=== PATIENT | male | born 1940 | race Caucasian/White ===

== ENCOUNTER 2020-02-17 08:21 | Observation (INO) ==
--- NOTE | 2020-02-05 14:16 | PAT Medication Instructions ---
Medication Instructions Date of Service February 05, 2020 Home Medications amlodipine 10 mg PO QAM aspirin [Aspir-81] 81 mg PO DAILY PRN cholecalciferol (vitamin D3) [Vitamin D3] 2,000 unit PO QAM lisinopril 40 mg PO QAM multivitamin [Multiple Vitamins] 1 tab PO QAM rosuvastatin 10 mg PO QAM tamsulosin 0.4 mg PO DAILY PRN ASK your surgeon for instructions aspirin [Aspir-81] 81 mg PO DAILY PRN DO NOT take the morning of surgery cholecalciferol (vitamin D3) [Vitamin D3] 2,000 unit PO QAM lisinopril 40 mg PO QAM multivitamin [Multiple Vitamins] 1 tab PO QAM Take morning of surgery With a small sip of water, OTHERWISE NOTHING TO EAT OR DRINK AFTER MIDNIGHT: amlodipine 10 mg PO QAM rosuvastatin 10 mg PO QAM tamsulosin 0.4 mg PO DAILY PRN (if needed) Other Notes If you have any questions please call us at [phone] or [phone] or [phone] or [phone]
--- NOTE | 2020-02-08 10:50 | Anesthesiology Consultation ---
Date of Service February 08, 2020 Assessment & Plan (1) Encounter for pre-operative examination: Per PAT assessment on 02/07: Travel screen- Traveled to [facility] for a 02/01/20 (DOS greater than 2 weeks after return from travel). + mask, + social distancing. No known COVID-19 positive contacts. No current COVID-19 related symptoms. Surgeon arranging preop COVID testing. Awaiting results. Chart Review Chart Review: Acceptable Risk for Surgery (pending COVID testing) and Patient seen in Pre Admission Testing Teaching & Discussion Pre-Anesthesia Teaching/Discussion Notes: Instructed NPO after midnight before surgery,except medications with 15 cc of water. Medication instructions provided according to the PAT guidelines. History Surgery Operation Date: 02/17/20 10:50 Proposed Procedures p Right Total Knee Arthroplasty - Ben Trevino MD Height/Weight Height: 5 ft 11 in Weight: 85.6 kg Allergies Allergy/AdvReac Type Severity Reaction Status Date / Time acetaminophen [From Percocet] AdvReac Severe Hypotension Verified 02/01/20 08:39 oxycodone [From Percocet] AdvReac Severe Hypotension Verified 02/01/20 08:39 Medications Home Medications Medication Instructions Recorded Confirmed Last Taken amlodipine 10 mg PO QAM 03/18/18 02/01/20 Unknown aspirin [Aspir-81] 81 mg PO DAILY PRN 03/18/18 02/01/20 Unknown cholecalciferol (vitamin D3) 2,000 unit PO QAM 03/18/18 02/01/20 Unknown [Vitamin D3] lisinopril 40 mg PO QAM 03/18/18 02/01/20 Unknown multivitamin [Multiple Vitamins] 1 tab PO QAM 03/18/18 02/01/20 Unknown rosuvastatin 10 mg PO QAM 03/18/18 02/01/20 Unknown tamsulosin 0.4 mg PO DAILY PRN 02/01/20 02/01/20 Unknown Past Medical History Medical History BPH (benign prostatic hyperplasia) HTN (hypertension) Hyperlipidemia Kidney stones passed without intervetion Osteoarthritis Exercise / Class Metabolic Activity II 4-5 Yardwork/Stairs/Walk up hill Past Family History Family History Other Hypertension Past Surgical History Surgical History History of arthroscopy left x2 History of colonoscopy History of total hip arthroplasty left/right History of total knee replacement left History of total shoulder replacement right Hx of bilateral cataract extraction Hx of elbow surgery calcium deposit right Past Anesthesia History No Family Hx of Anesthesia Complications and Other (unable to void with left/right DAMARIS, required cath post-operatively) History of PONV No Hx of PONV and No Hx of Motion Sickness Social History Smoking Status: Never smoker Do You Dip or Chew Tobacco: No Hx Alcohol Use: Yes Alcohol type: wine and hard liquor alcohol intake frequency: 0-2 drinks per day (0-2 drinks/day (currently patient plans no ETOH use from now until after surgery)) Hx Substance Use: No substance use type: does not use Review of Systems Patient denies chest pain, shortness of breath, dyspnea on exertion, fever, chills, cough, wheezing, palpitations. Physical Exam Vital Signs VITALS BP 119/69 P 55 TEMP 98.6 SP02 96%RA RESP 18 PHYSICAL Full neck and c-spine range of motion. Full TMJ range of motion. TMD 3 finger breaths Mallampati Score 3 Dentition: intact, caps on molars Lungs: clear throughout to auscultation Cardiac: regular rate and rhythm, no murmurs noted Spine: normal Carotid arteries: negative bruit Extremities: no edema Testing Laboratory Results 02/08/20 11:17 02/08/20 11:17 PT 10.4 Seconds (9.0-12.0) 02/08/20 11:17 INR 1.0 (0.9-1.1) 02/08/20 11:17 APTT 30.1 Seconds (21.0-31.0) 02/08/20 11:17 Urine Color Dark Yellow 02/08/20 11:17 Urine Appearance Clear (Clear) 02/08/20 11:17 Urine pH 6.0 (4.5-7.5) 02/08/20 11:17 Ur Specific [place] 1.022 (1.000-1.030) 02/08/20 11:17 Urine Protein Negative (Negative) 02/08/20 11:17 Urine Glucose (UA) Negative (Negative) 02/08/20 11:17 Urine Ketones Negative (Negative) 02/08/20 11:17 Urine Nitrite Negative (Negative) 02/08/20 11:17 Ur Leukocyte Esterase 2+ (Negative) H 02/08/20 11:17 Urine WBC (Auto) 10-30 /hpf (0-5) H 02/08/20 11:17 Urine RBC (Auto) 0-4 /hpf (0-4) 02/08/20 11:17 U Hyaline Cast (Auto) 1-5 /lpf (0-5) 02/08/20 11:17 U Epithel Cells (Auto) 10-20 /lpf (0-5) H 02/08/20 11:17 Urine Bacteria (Auto) Negative (Negative) 02/08/20 11:17 Blood Type B Positive 02/08/20 11:17 Antibody Screen NEGATIVE 02/08/20 11:17 Electrocardiogram Date: 02/08/20 SB at 55bpm. Chest X-Ray Date: 02/08/20 FINDINGS: PA and lateral chest radiographs are compared to study dated 2017. The heart is mildly enlarged noting atherosclerotic calcification of the thoracic aorta. The pulmonary vasculature is noncongested. Chronic interstitial thickening is similar to previous. No airspace consolidation or pleural effusion is identified. There is no pneumothorax. The skeletal structures are osteopenic. A right shoulder arthroplasty is in place. There is chronic posttraumatic defor mity with partial plate fixation of the right clavicle. IMPRESSION: Mild cardiac enlargement with no active disease in the chest.
--- NOTE | 2020-02-08 11:41 | XRay Report ---
TWO VIEW CHEST CLINICAL HISTORY: Preoperative examination. FINDINGS: PA and lateral chest radiographs are compared to study dated 03/18/2018. The heart is mildly enlarged noting atherosclerotic calcification of the thoracic aorta. The pulmonary vasculature is no ncongested. Chronic interstitial thickening is similar to previous. No airspace consolidation or pleu ral effusion is identified. There is no pneumothorax. The skeletal structures are osteopenic. A right shoulder arthroplasty is in place. There is chronic posttraumatic deformity with partial plate fixat ion of the right clavicle. IMPRESSION: Mild cardiac enlargement with no active disease in the chest. ACT 112: Negative or not required by law. Electronically signed by: Khurram Hussein M.D. 02/08/2020 11:40 AM
[2020-02-08 13:28] LABS: Basophils # (auto) 0.01 K/uL (0-0.2); Basophils % (auto) 0.1 %; Eosinophils # (auto) 0.28 K/uL (0-0.5); Eosinophils % (auto) 3.7 %; Hematocrit (blood only) 48.7 % (42-52); Hemoglobin 16.5 g/dL (14.0-18.0); Immature Granulocytes # (auto) 0.01 K/uL (0.00-0.02); Immature Granulocytes % (auto) 0.1 %; Lymphocytes # (auto) 1.62 K/uL (1.2-3.4); Lymphocytes % (auto) 21.7 %; Mean Corpuscular Hemoglobin 33.2 pg (25-34); Mean Corpuscular Hgb Conc 33.9 g/dL (32-36); Monocytes # (auto) 0.63 K/uL (0.11-0.59); Monocytes % (auto) 8.4 %; Neutrophils # (auto) 4.92 K/uL (1.4-6.5); Platelet Count 181 K/uL (130-400); RDW Coefficient of Variation 13.5 % (11.5-14.5); RDW Standard Deviation 48.2 fL (36.4-46.3); Red Blood Count 4.97 M/uL (4.7-6.1); White Blood Count 7.47 K/uL (4.8-10.8)
[2020-02-08 13:38] LABS: Appearance Urine Clear (Clear); Bacteria Urine Automated Negative (Negative); Bilirubin Urine Negative (Negative); Blood Urine Negative (Negative); Color Urine Dark Yellow; Glucose Urine UA Negative (Negative); Ketones Urine Negative (Negative); Leukocyte Esterase Urine 2+ (Negative); Nitrite Urine Negative (Negative); Protein Urine Negative (Negative); RBC Urine Automated 0-4 /hpf (0-4); Specific Gravity Urine 1.022 (1.000-1.030); Urobilinogen Urine Negative (Negative)
[2020-02-08 13:42] LABS: Partial Thromboplastin Ratio 1.1; Partial Thromboplastin Time 30.1 Seconds (21.0-31.0); Prothrombin Time 10.4 Seconds (9.0-12.0)
[2020-02-08 13:52] LABS: BUN Creatinine Ratio 19.8 (10-20); Calcium 9.3 mg/dl (8.5-10.1); Creatinine Clr Calc Pharmacy 52.3 ml/min; Potassium 4.3 mmol/L (3.5-5.1)
[2020-02-08 13:55] LABS: Calcium Oxalate Crystals Urine Present (None Prsent); Mucus Urine Present (None Prsent)
--- NOTE | 2020-02-08 17:54 | Electrocardiogram Report ---
Test Reason : Blood Pressure : / mmHG Vent. Rate : 055 BPM Atrial Rate : 055 BPM P-R Int : 200 ms QRS Dur : 096 ms QT Int : 430 ms P-R-T Axes : 076 061 052 degrees QTc Int : 411 ms Sinus bradycardia Otherwise normal ECG When compared with ECG of 18-MAR-2018 13:50, Premature atrial complexes are no longer Present Questionable change in QRS axis Confirmed by Wilbur Ma ([id number]) on 02/08/2020 5:53:56 PM Referred By: Ben Trevino Confirmed By:Chiki Ma
--- NOTE | 2020-02-15 07:55 | History & Physical Report ---
Date of Service February 15, 2020 Assessment & Plan (1) Right knee DJD: Postoperative prescriptions for hydrocodone and Coumadin will be provided at discharge from the hospital. The patient states he does not do well at all with Percocet and causes significant hypotension. Anticipate discharge to home with home health services. Preoperative lab work, EKG, and chest x-ray have been ordered for today. He has already seen his PCP for medical clearance. PDMP was checked today and is unremarkable. The patient is aware of the COVID- 19 risks associated with surgery. He is currently asymptomatic of any COVID-19 symptoms. He will obtain nasal swab testing prior to surgery. History of Present Illness Chief Complaint: Right knee pain Primary Care Provider: Haleigh Evans MD This 79-year-old white male presents today for evaluation of a longstanding history of right knee pain. He is scheduled to undergo a right knee total knee arthroplasty on 02/17/2020. It has been ongoing for several years. Pain has become worse with time. It is now affecting his ADLs. Worse with weightbearing or ambulation. He denies any numbness or tingling. Previously had a left total knee arthroplasty done 20 years ago and states it is doing well. He elects to proceed with the same on the right. Preoperative imaging has been obtained. Allergies Allergy/AdvReac Type Severity Reaction Status Date / Time acetaminophen [From Percocet] AdvReac Severe Hypotension Verified 02/01/20 08:39 oxycodone [From Percocet] AdvReac Severe Hypotension Verified 02/01/20 08:39 Home Medications Home Medications Medication Instructions Recorded Confirmed Type amlodipine 10 mg PO QAM 03/18/18 02/01/20 History aspirin [Aspir-81] 81 mg PO DAILY PRN 03/18/18 02/01/20 History cholecalciferol (vitamin D3) 2,000 unit PO QAM 03/18/18 02/01/20 History [Vitamin D3] lisinopril 40 mg PO QAM 03/18/18 02/01/20 History multivitamin [Multiple Vitamins] 1 tab PO QAM 03/18/18 02/01/20 History rosuvastatin 10 mg PO QAM 03/18/18 02/01/20 History tamsulosin 0.4 mg PO DAILY PRN 02/01/20 02/01/20 History Past Med/Surg History Medical History BPH (benign prostatic hyperplasia) HTN (hypertension) Hyperlipidemia Kidney stones passed without intervetion Osteoarthritis Surgical History History of arthroscopy left x2 History of colonoscopy History of total hip arthroplasty left/right History of total knee replacement left History of total shoulder replacement right Hx of bilateral cataract extraction Hx of elbow surgery calcium deposit right Family History (Updated 02/15/20 @ 07:54 by Kirill Jones PA-C) Other Cancer Heart disease Hypertension Social History Smoking Status: Never smoker Second Hand Exposure: No; Hx Alcohol Use: Yes Alcohol type: wine and hard liquor Hx Substance Use: No Preferred Language: Croatian Communication Ability: Effective Hearing Ability: Normal Java Systems Analyst Required: No Beliefs That Will Affect Care: None marital status: Current Living Situation: Spouse current occupational status: retired Feels Safe at Home: Yes Review of Systems Review of Systems: All systems reviewed & are unremarkable except as noted in HPI & below A total of 10 systems were reviewed. Physical Exam Physical Exam: Vitals: Height 176 cm, weight 87.2 kilograms, BMI 28.1. Temperature 36.5 oral, BP 130/72, pulse 69, O2 sat 96% on room air. General: Well-developed, well-nourished, elderly white male in no acute distress. Sitting in a chair. Alert and oriented. Skin: Warm and dry with good turgor. No rashes or lesions. No ecchymosis or erythema. No intraarticular effusion. Left knee has a well-healed surgical scar. HEENT: Normocephalic, atraumatic. Eyes: PERRLA, EOMI. Nares patent bilaterally without turbinate enlargement. Oropharynx exam deferred due to COVID precautions. Heart: Regular with frequent PVCs. The patient denies feeling the extra PVCs. No murmurs, gallops or rubs. Lungs: Clear to auscultation bilaterally; no crackles, rhonchi or wheezing; good air movement. Abdomen: Bowel sounds present x4, soft, nontender. No organomegaly. No masses. Musculoskeletal: Right knee lacks 3-4 degrees of terminal extension. Flexion to 100 degrees. Strength is 5/5 with good quad tone. Obvious varus stance. Obvious arthritic changes are present at the knee. Palpable spurs. There is medial joint line discomfort with palpation. No lateral joint line discomfort with palpation. Stable collateral ligaments. No defect in the patellar tendon or quadriceps tendon. Neurologic: Gross sensation is intact across both lower extremities by soft touch. Peripheral pulses are 2+. Results & Data Results & Data ([facility] [place]) Diagnostic Findings Radiographic imaging obtained today was reviewed by me and read by radiology. He has significant arthritic changes throughout the knee. There is severe joint space narrowing medially. Periarticular osteophytes and subchondral sclerosis are also evident.
[~2020-02-17 08:21] MED LIST: BUPIVACAINE 0.5 % 5 MG/1 ML PF 10ML VIAL ONE; CEFAZOLIN 2000MG 2,000 MG/15 ML SYR IV SCH; LR 500ML BOLUS, THEN 15ML/HR IV SCH; LR 60ML/HR IV SCH; ROPIVACAINE 0.5% 5 MG/ML 30 ML VIAL ONE; ROPIVACAINE 0.5% HCL/PF 150 MG, BUPIVACAINE 0.5% MPF 30 ML, EPINEPHrine 0.15 MG, Ketoro... INFIL SCH; TRANEXAMIC ACID 1,000 MG **IV Pre-op IV SCH
--- NOTE | 2020-02-17 08:41 | History & Physical Bridge Note ---
Date of Service February 17, 2020 History & Physical Bridge Note I have examined the patient, reviewed the History & Physical and in the interval since the performance of the History & Physical I have noted the following changes of clinical significance:consent obtained/site marked and verified/covid screen negative. no changes noted
[2020-02-17] MEDS ORDERED: PROPOFOL IV EMULSION 10 MG/ML 20 ML VIAL IV ONE (10:10)
[2020-02-17] MEDS ORDERED: MIDAZOLAM HCL 1 MG/ML 2ML VIAL ONE ×2 (10:10→10:14)
[2020-02-17] MEDS ORDERED: ORTHO JOINT ANESTHETIC ONE (10:35)
[2020-02-17] MEDS ORDERED: ONDANSETRON INJ 2 MG/ML 2 ML VIAL IV PRN ×2 (11:09→14:04)
[2020-02-17] MEDS ORDERED: ATROPINE SULFATE 0.1 MG/ML 10ML SYR IV PRN (11:09)
[2020-02-17] MEDS ORDERED: HYDROmorphone INJ 1 MG/ML SYRINGE IV PRN (11:09)
[2020-02-17] MEDS ORDERED: ePHEDrine sulfate 50 MG/ML AMP IV PRN (11:09)
[2020-02-17] MEDS ORDERED: KETOROLAC TROMETHAMINE 15 MG/ML VIAL IV PRN (11:28)
--- NOTE | 2020-02-17 12:20 | Post Operative Brief Note ---
Immediate Post Op Note v1 Date of Surgery February 17, 2020 Pre & Post Diagnosis Operation Date: 02/17/20 10:40 Pre-Op Diagnosis: Right Knee Degenerative Joint Disease Post-Op Diagnosis: Right Knee Degenerative Joint Disease I identified the patient and participated in the time-out.: Yes Procedure Operation Date: 02/17/20 10:40 Actual Procedures p Right Total Knee Arthroplasty(Right) - Ben Trevino MD Surgeon Ben Trevino MD Certified Diabetes Educator nery/german Estimated Blood Loss 75 Findings Consistent with Post-Op Diagnosis
--- NOTE | 2020-02-17 12:28 | Operative Report ---
Post Operative Report Pre & Post Diagnosis Operation Date: 02/17/20 10:40 Pre-Op Diagnosis: Right Knee Degenerative Joint Disease Post-Op Diagnosis: Right Knee Degenerative Joint Disease I identified the patient and participated in the time-out.: Yes Procedure Operation Date: 02/17/20 10:40 Actual Procedures p Right Total Knee Arthroplasty(Right) - Ben Trevino MD Surgeon CAMERON Trevino MD Car Hop nery/german Estimated Blood Loss 75 Findings Consistent with Post-Op Diagnosis Specimens see operative report Drains none Complications none Disposition Accompanied Patient To Recovery: Yes Disposition: Recovery Room Indications This 79-year-old white male presented to the office with complaints of intractable right knee pain. He had tried conservative care measures without improvement. He elected to proceed with surgical intervention after being educated about potential risks and outcomes. Preoperative imaging was obtained. He previously had a left total knee arthroplasty and elected to proceed with the same on the right. Description of Procedure Patient was administered a spinal anesthetic and then taken to the operating room where he was given sedation. He was prepped and draped in the usual sterile fashion. Please see Dr. Trevino's operative report for specifics of the procedure. I was present for the entire case from initial patient positioning through final wound closure. Assistance was provided in tissue retraction, hemostasis, trial implant placement, final implant placement, and final wound closure. Patient was taken to the recovery room in satisfactory condition. I attest to the content of the Intraoperative Record and any orders documented therein. Any exceptions are noted below.
--- NOTE | 2020-02-17 12:35 | Operative Report (OR) ---
DATE OF OPERATION: 02/17/2020 SURGEON: Ben Trevino MD. MEDICATION TECH: Kirill Jones PA-C. SECOND MEDICATION TECH: Juan Miguel Desai. No resident or fellow available. PA was required for the entire case for appropriate operative assistance for retraction and instrumentation. PERIOPERATIVE SITUATION: Medically cleared male with intractable knee pain, has significant varus flexion deformity. X-rays reveal end-stage medial compartment disease. At this point in time, wants to proceed with surgical treatment. He has multiple joints replaced. He understands the risks and consequences. Consent obtained. No guarantees given. OPERATIVE PROCEDURE: Cemented right total knee replacement. DESCRIPTION OF PROCEDURE: The patient was appropriately identified, site verified, consent verified. Antibiotics confirmed as being given. The right lower extremity was prepped and draped in usual routine fashion. Tourniquet was applied and elevated to 300 mmHg for a total of 50 minutes. Midline exposure was utilized. Tourniquet pressure was 300 mmHg. Parapatellar arthrotomy performed. Synovectomy completed, osteophytes resected. Loose body removed. Distal femur entered, cruciates resected. Distal femur resected 14 mm, proximal tibia resected 4 mm, extension gap was excellent. Menisci resected. Posterior capsule was then injected. The femur was sized to a 4, appropriate cutting block applied. Anterior, posterior condylar and chamfer cuts made. Flexion gap was excellent. Box cut was then made and a size 4 narrow fit well. Tibia was then broached and reamed to a size 4 and then reduced with a 10 mm spacer with excellent stability in full flexion, full extension and mid range flexion. Patella tracked well. The patella was resected leaving 16 mm and a size 41 template placed and the trial seated, it tracked well. The knee was then injected with Orthomix all about the entire operative field. The trial implants were removed. The wound was irrigated with Pulsavac, Betadine and Pulsavac and then cemented in position, tibia, femur and patella in that order. After 12 minutes, the tourniquet deflated. Minor bleeding points controlled with electrocautery. After 14 minutes, knee flexed, no cement removal required. The spacer was removed. Everything was irrigated with Betadine and Pulsavac and then Betadine one more time and then the implant permanent spacer seated, knee reduced and closed in 30 degrees of flexion with #2 Vicryl, 2-0 Vicryl and stainless steel clips. Appropriate dressing applied. The patient was transferred to recovery room in satisfactory condition having tolerated the procedure well. ESTIMATED BLOOD LOSS: 75 mL. PATHOLOGY: Pending on bone. CRYSTALLOID: Per anesthesia. SUMMARY OF IMPLANTS: Size 4 narrow right femur, size 4 mobile bearing tray tibia, size 41 patella, 4 x 10 posterior cruciate substituting insert, 2 bags of Palacos G cement. DVT prophylaxis per protocol with Coumadin. I attest to the content of the Intraoperative Record and any orders documented therein. Any exceptions are noted below. MTDD
--- NOTE | 2020-02-17 12:43 | XRay Report ---
XR knee RT 1 or 2V routine CLINICAL HISTORY: post op r tka COMPARISON: 02/08/2020 DISCUSSION: Anatomic alignment post total right knee arthroplasty. Good contact between prosthetic an d underlying bone. Evidence for expected soft tissue postoperative change. IMPRESSION: Anatomic alignment post total right knee arthroplasty. ACT 112: Negative or not required by law. The above report was generated using voice recognition software. It may contain grammatical, syntax or spelling errors. Electronically signed by: Vinay Flowers M.D. 02/17/2020 12:42 PM
--- NOTE | 2020-02-17 13:08 | Progress Notes ---
DATE: 02/17/2020 SUBJECTIVE: Postop check status post right total knee replacement. The patient is doing well, has no major issues. Denies any chest pain, shortness of breath, fever, chills, nausea, vomiting or headache. OBJECTIVE: Vital signs are stable. He is afebrile. Postop x-rays look excellent. ASSESSMENT: Status post right total knee replacement. He is doing well, will follow up with me in a.m. Discharge tomorrow. Physical therapy and occupational therapy.
--- NOTE | 2020-02-17 13:28 | Anesthesiology Progress Note ---
Date of Service February 17, 2020 Anesthesia Post Procedure Vital Signs Vital Signs: Temp Pulse Pulse Resp BP BP Pulse Ox 02/17/20 13:15 36.3 C L 48 L 14 119/69 93 02/17/20 13:05 44 L 16 118/68 100 02/17/20 12:55 46 L 13 113/65 98 02/17/20 12:45 46 L 17 114/62 99 02/17/20 12:35 36 C L 47 L 18 100/60 99 02/17/20 12:27 36 C L 53 L 16 83/57 L 95 02/17/20 08:51 37.2 C 60 18 145/85 H Transfer of Care Handoff Completed per policy Notes Mental Status: alert / awake / arousable Patient Amnestic to Procedure: Yes Nausea / Vomiting: adequately controlled Pain: adequately controlled Airway Patency, RR, SpO2: stable & adequate BP & HR: stable & adequate Hydration State: stable & adequate Neuraxial Anesthesia: was administered and sensory block is resolving Anesthetic Complications: no major complications apparent
--- NOTE | 2020-02-17 13:33 | Discharge Summary (DS) ---
DATE OF DISCHARGE: 02/18/2020. CHIEF COMPLAINT: Right knee pain. HISTORY OF PRESENT ILLNESS: Underwent elective right total knee replacement. Hospital course has been uneventful. He has had multiple joints replaced including hips, shoulders and left knee. He is here for right total knee replacement. Hospital course has been uneventful. PREADMISSION MEDICATIONS: Include amlodipine, aspirin, vitamin D, lisinopril, multivitamin, tamsulosin, rosuvastatin. ALLERGIC: TO ACETAMINOPHEN FROM PERCOCET AND OXYCODONE FROM PERCOCET. PAST MEDICAL HISTORY: Remarkable for BPH, hypertension, hyperlipidemia, kidney stones, osteoarthritis. PAST SURGICAL HISTORY: Remarkable for colonoscopy, arthroscopies, hip replacement, knee replacement, shoulder replacement on the left, cataract surgery, elbow surgery. FAMILY HISTORY: Remarkable for cancer, heart disease, hypertension. SOCIAL HISTORY: Reveals he does not smoke, does not drink, is . Spouse is alive. Lives with his spouse, feels safe at home. REVIEW OF SYSTEMS: Noncontributory. Hospital course has been uneventful. Postop x-rays look excellent. ASSESSMENT: Doing well status post right total knee replacement. Discharge to home tomorrow after PT/OT. Coumadin per nomogram.
[2020-02-17] MEDS ORDERED: DiphenhydrAMINE HCL 50 MG/ML VIAL IV PRN (14:04)
[2020-02-17] MEDS ORDERED: NALOXONE HCL 0.4 MG/1 ML VIAL/CARP IV PRN (14:04)
[2020-02-17] MEDS ORDERED: TAMSULOSIN HCL 0.4 MG CAP PO PRN (14:04)
[2020-02-17] MEDS ORDERED: VANCOMYCIN CONSULT ACTIVE PRN (14:04)
[2020-02-17] MEDS ORDERED: ASPIRIN 81 MG ECTAB PO PRN (14:04)
[2020-02-17] MEDS ORDERED: HYDROCODONE/ACETAMOPHEN 5/325MG TAB PO PRN (14:04)
[2020-02-17] MEDS ORDERED: ALUMINUM/MAGNESIUM SUSP 30 ML UDC PO PRN (14:04)
[2020-02-17] MEDS ORDERED: HYDROmorphone INJ 0.5 MG/0.5 ML SYR IV PRN (14:04)
[2020-02-17] MEDS ORDERED: bisacodyL 10 MG SUPP PR PRN (14:04)
[2020-02-17] MEDS ORDERED: METOCLOPRAMIDE HCL INJ 5 MG/ML 2 ML VIAL IV PRN (14:04)
[2020-02-17] MEDS ORDERED: MAGNESIUM HYDROXIDE SUSP 30 ML UDC PO PRN (14:04)
[2020-02-17] MEDS ORDERED: SODIUM CHLORIDE 0.9% 1000ML 1,000 ML IV SCH (14:04)
[2020-02-17] MEDS: ACETAMINOPHEN 500 MG TAB PO SCH ×3 (14:50→21:39)
[2020-02-17] MEDS: ORTHO WARFARIN NOMOGRAM SCH (15:02)
[2020-02-17] MEDS ORDERED: WARFARIN SOD 5 MG TAB PO SCH (16:00)
[2020-02-17] MEDS: FERROUS GLUCONATE 324 MG TAB PO SCH (16:08)
[2020-02-17] MEDS: KETOROLAC TROMETHAMINE 15 MG/ML VIAL IV SCH ×2 (16:08→21:39)
[2020-02-17] MEDS: ASCORBIC ACID 500 MG TAB PO SCH (16:08)
[2020-02-17] MEDS ORDERED: VANCOMYCIN HCL 1,250 MG in SODIUM CHLORIDE 0.9% 250 ML IV SCH (17:30)
[2020-02-17] MEDS ORDERED: TRANEXAMIC ACID / 0.7% NACL 1,000 MG/100 ML BAG IV SCH (18:34)
[2020-02-17] MEDS ORDERED: SENNA 8.6 MG TAB PO SCH (21:00)
[2020-02-17] MEDS: CEFAZOLIN 2000MG 2,000 MG/15 ML SYR IV SCH (21:33)
[2020-02-17] MEDS: DOCUSATE SODIUM 100 MG CAP PO SCH (21:38)
[2020-02-17] MEDS ORDERED: COUGH DROP (SUGAR FREE) LOZ 24 LOZ/1 BOX BUCCAL ONE (22:04)
[2020-02-18] MEDS: KETOROLAC TROMETHAMINE 15 MG/ML VIAL IV SCH ×2 (03:46→11:26)
[2020-02-18] MEDS: CEFAZOLIN 2000MG 2,000 MG/15 ML SYR IV SCH (03:46)
[2020-02-18] MEDS: ACETAMINOPHEN 500 MG TAB PO SCH (03:46)
[2020-02-18 06:08] LABS: Hematocrit (blood only) 39.6 % (42-52); Mean Corpuscular Hemoglobin 31.3 pg (25-34); Mean Corpuscular Hgb Conc 32.8 g/dL (32-36); Mean Corpuscular Volume 95.4 fL (80-100); Mean Platelet Volume 9.6 fL (7.4-10.4); Platelet Count 156 K/uL (130-400); RDW Coefficient of Variation 13.1 % (11.5-14.5); RDW Standard Deviation 45.7 fL (36.4-46.3); Red Blood Count 4.15 M/uL (4.7-6.1); White Blood Count 12.69 K/uL (4.8-10.8)
[2020-02-18 06:19] LABS: INR 1.1 (0.9-1.1)
[2020-02-18 06:41] LABS: BUN Creatinine Ratio 18.1 (10-20); Calcium 7.8 mg/dl (8.5-10.1); Est GFR (African American) 58.5; Est GFR (Non-African American) 50.5; Potassium 4.2 mmol/L (3.5-5.1)
[2020-02-18 07:14] VITALS: BP 120/71; TEMP 98.2; O2SAT 94
--- NOTE | 2020-02-18 07:28 | Progress Notes ---
DATE: 02/18/2020 SUBJECTIVE: Status post right total knee replacement. At this point in time, he is doing well, has no issues. OBJECTIVE: VITAL SIGNS: Stable. He is afebrile. Neurovascular check, femoral sciatic nerve is normal. Can do a straight leg raise. LABORATORY WORK: Hematocrit stable at 39.6. Electrolytes are good. ASSESSMENT: Doing well. Discharge to home today. Discharged on Coumadin. Also have Celebrex 200 mg daily for 10 days and antacid Protonix or equivalent for GI protection since he has difficulty using narcotics, he will need to use Celebrex and Tylenol.
[2020-02-18 07:44] VITALS: PULSE 60
[2020-02-18] MEDS ORDERED: dexAMETHasone 10 MG in SYRINGE 0 ML IV SCH (08:00)
[2020-02-18] MEDS: DOCUSATE SODIUM 100 MG CAP PO SCH (08:49)
[2020-02-18] MEDS: ASCORBIC ACID 500 MG TAB PO SCH (08:50)
[2020-02-18] MEDS: FERROUS GLUCONATE 324 MG TAB PO SCH (08:50)
[2020-02-18] MEDS ORDERED: AMLODIPINE BESYLATE 5 MG TAB PO SCH (09:00)
[2020-02-18] MEDS ORDERED: MULTIVITAMIN TAB PO SCH (09:00)
[2020-02-18] MEDS ORDERED: lisinopriL 40 MG TAB PO SCH (09:00)
[2020-02-18] MEDS ORDERED: ROSUVASTATIN CALCIUM 10 MG TAB PO SCH (09:00)
--- NOTE | 2020-02-18 09:06 | Orthopedic Progress Note ---
Date of Service February 18, 2020 Assessment & Plan (1) Status post total right knee replacement using cement: Dressing was changed today by me. Continue using a walker when ambulating. Coumadin today per nomogram. PT/OT today. Anticipate discharge to home later today with home health services. Follow-up in the office in 2 weeks on March 04, for staple removal as scheduled. Written discharge instructions were provided. Prescriptions for Celebrex, Protonix, and Coumadin were sent to his pharmacy. Admission and Anticipated Discharge Date Admission Date: February 17, 2020 Subjective Patient is seen in his room this morning. He denies any complaints. He has not used any pain medication. Denies any chest pain, shortness of breath, nausea, vomiting, or abdominal pain. States he did not sleep well due to interruptions. He does feel ready for discharge to home. He is currently eating breakfast. Review of Systems Review of Systems: Unchanged from yesterday Physical Exam Physical Exam: General: Well-developed, well-nourished, elderly white male, in no acute distress. Laying on the bed. Alert and oriented. Conversive. Postsurgical dressings are in place. Skin: Warm and dry with good turgor. No rashes or lesions. Dressings have scant dried blood on them upon removal. Expected postoperative ecchymosis with minimal edema at the knee. No erythema. Surgical incision has verito intact. No active drainage. The patient is not diaphoretic. Musculoskeletal: Patient has intact motor function to his ankle and toes. He is able to perform a straight leg raise. Active flexion to around 50 degrees. Neurologic: Gross sensation is intact across the left leg by soft touch. Peripheral pulses are 2+. Results & Data ([facility]) Vital Signs (Past 12 Hours) Vital Signs Temp Pulse Pulse Pulse Resp BP Pulse Ox 02/18/20 07:44 60 02/18/20 07:13 36.8 C 56 L 16 120/71 94 02/18/20 04:00 36.6 C 70 16 116/64 96 02/17/20 23:35 36.8 C 72 18 122/72 96 Laboratory Results H&H today is 13.0 and 39.6. INR is 1.1. BMP is unremarkable.
[2020-02-18] MEDS ORDERED: WARFARIN SOD 5 MG TAB PO SCH (10:00)
[2020-02-18] MEDS: ORTHO WARFARIN NOMOGRAM SCH (11:28)
[2020-02-19] MEDS ORDERED: CeleBREX 200 MG CAP PO SCH (09:00)
== END 2020-02-18 01:30 | disposition home health service (06) ==
LOC: ASU 08:21 → 3E 08:21

== ENCOUNTER 2024-04-08 10:14 | Inpatient (IN) ==
[2024-04-08] MEDS: OPTIRAY 320 125ml IV ONE (10:18)
--- NOTE | 2024-04-08 10:22 | Emergency Department Note ---
Impression & Plan Stroke-like symptoms ED Provider Note Provider: Earl Son MD DATE OF SERVICE: 04/08/2024 CHIEF COMPLAINT: Possible stroke HISTORY OF PRESENT ILLNESS: Patient is a 83-year-old gentleman presenting here today via ambulance from home. Woke up at 730am and was reportedly normal. Was having breakfast and noted the patient had some left facial droop. Evidently had an episode also where he had some difficulty clearing secretions and was drooling briefly. Seem to have some issues getting his left shoe on cording to EMS. Patient upon arrival denies pain. States he does not think he is having a stroke. Patient denies numbness or tingling at this time or speech issues. No trauma history of fever reported. Denies chest pain or palpitations. later arrives and states that he really could not even keep his arms level earlier at home and seems to improved a bit. Did have a spinal shot about a week ago. PAST MEDICAL HISTORY: As noted above MEDICATIONS: Reviewed home medications does not include anticoagulants/blood thinners SOCIAL HISTORY: PHYSICAL EXAM: GENERAL: alert and oriented in no acute distress on stretcher Head: normocephalic and atraumatic EYES: No injection, discharge or icterus. PERRL, EOMI. NECK: Trachea midline. ENT: Mucous membranes pink and moist. LUNGS: Airway patent. No retractions. Breath sounds clear with good air entry bilaterally. HEART: Regular rate and rhythm. No chest wall tenderness ABDOMEN: Soft and non-tender, without guarding or rebound. SKIN: Acyanotic, warm, dry, without rashes EXTREMITIES: Without swelling, tenderness or deformity NEUROLOGICAL: Some left facial droop. Is able to smile fairly symmetrically however. No aphasia. No slurred speech. Intact bilateral car shifter strength. Little bit of weakness in left foot and maybe some very slight left [id number] ataxia but seems to have intact left upper extremity strength and no pronator drift. EK bpm sinus rhythm with sinus arrhythmia. No PVC. No acute ST segment elevation or depression with QTc of 416. CONTINUOUS CARDIAC MONITORING: was ordered and showed a heart rate of 60s bpm in sinus rhythm frequent sinus arrhythmia without PVC notable. Patient's laboratory studies and imaging reviewed. Differential includes Infection, dehydration, metabolic abnormality, hypo/hyperglycemia, electrolyte disturbance, anemia, hypoxia, cardiac sources, intracerebral event, toxicologic, neurologic, as well as other pathologies. IMPRESSION/MEDICAL DECISION MAKING: Patient presents from home made a stroke alert with EMS based on description of some left facial droop and possible left-sided weakness. Patient upon arrival is awake and alert. No obvious aphasia or significantly slurred speech but due to left facial droop is appreciable. Patient denies significant numbness or paresthesias on exam. Immediately sent for CT scan and CT angiograms. Discussed with the [facility] [place] [place] stroke team as the patient's symptoms started sometime after 7:30 AM. states it was sometime just after that when she arrived. Does report that he was unable to lift his arms symmetrically but does seem to be able to do that now. Presents at approximately the 3-hour trevon and symptoms do not appear severe at this point. Discussed with and evaluated by telestroke. On further evaluation does have some visual field cuts that are more significant. CT head per radiology without evidence of bleed. Telestroke discussion with patient and regarding pros and cons of TNK/thrombolytics. Discussed risk for bleeding. Patient was agreeable after prolonged discussion both with him and family. TNK ordered and administered. Will be monitored in the ICU. Hospitalist team contacted. DIAGNOSIS: Strokelike symptoms DISPOSITION: Hospitalist will evaluate Patient was agreeable with this plan. Critical Care I have personally spent 32 minutes of critical care time in the direct management of this patient. This includes bedside care, interpretation of diagnostic studies, and testing, discussion with consultants, patient, and family members, and other required patient management activities. These 32 minutes is in excess of all separately billable procedures. 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 Encounter for pre-operative examination BPH loc w urin obs/LUTS Medical History (Updated 04/08/24 @ 10:58 by Earl Son M.D.) Osteoarthritis Kidney stones passed without intervetion BPH (benign prostatic hyperplasia) Hyperlipidemia HTN (hypertension) Surgical History History of cholecystectomy H/O inguinal hernia repair bilateral Hx of bilateral cataract extraction Hx of elbow surgery calcium deposit right History of arthroscopy left x2 History of total shoulder replacement right History of total hip arthroplasty left/right History of total knee replacement left History of colonoscopy Family History Other Cancer Heart disease Hypertension Social History Smoking Status: Never smoker Second Hand Exposure: No; Do You Dip or Chew Tobacco: No; Tobacco Cessation Education Requested by Patient: No Hx Alcohol Use: Yes Alcohol type: other Hx Substance Use: No Preferred Language: Salvadorean Communication Ability: Effective Hearing Ability: Normal Cut Out Marker Required: Yes Beliefs That Will Affect Care: None marital status: Current Living Situation: Spouse current occupational status: retired Other Information That Helps Us Care for You: No Feels Safe at Home: Yes Safety Concerns: Feels Safe At This Time Assistive Devices: None Allergies Allergies Allergy/AdvReac Type Severity Reaction Status Date / Time oxycodone [From Percocet] AdvReac Intermediate Hypotension Verified 04/08/24 11:59 Home Meds Home Medications Medication Instructions Recorded Confirmed lisinopril 40 mg tablet 40 mg PO QAM 03/18/18 04/08/24 multivitamin (Multiple Vitamins 1 tab PO QAM 03/18/18 04/08/24 tablet) rosuvastatin 10 mg tablet 10 mg PO QAM 03/18/18 04/08/24 celecoxib 200 mg capsule (Celebrex) 200 mg PO QAM PRN Pain 06/20/22 04/08/24 amlodipine 10 mg tablet 10 mg PO DAILY 04/08/24 04/08/24 sildenafil 100 mg tablet 0 mg PO DAILY PRN sexual activity 04/08/24 04/08/24 timolol maleate 0.5 % eye drops 1 drp OPL QAM 04/08/24 04/08/24 Previous Rx's Medication Instructions Recorded tamsulosin 0.4 mg capsule See Rx Instructions .Route 08/01/23 .COMPLEX #90 caps mirabegron 50 mg tablet,extended 50 mg PO DAILY #90 tabs 10/10/23 release 24 hr (Myrbetriq) Results & Data (ED) Vital Signs Vital Signs - 24 hr 04/08/24 10:12 04/08/24 10:21 04/08/24 10:27 Temperature 36.8 C Temperature Source Oral Pulse Rate 61 Pulse Rate [Apical] Pulse Rate from SpO2 Sensor Respiratory Rate 18 Respiratory Effort / Characteristics Non-Labored Spontaneous Respiratory Depth Normal Respiratory Pattern Regular Blood Pressure 146/73 H 146/73 H Blood Pressure [Left Arm] Blood Pressure Mean 97 90 Blood Pressure Mean [Left Arm] Blood Pressure Position Lying Blood Pressure Position [Left Arm] Pulse Oximetry 92 94 Oxygen Delivery Method Room Air Room Air Sepsis Recent Fever Within 48 Hours No Sepsis New/Unexplained Change in Mental Status N/A Sepsis Action Taken by Nursing No Action Required 04/08/24 10:30 04/08/24 10:31 04/08/24 10:43 Temperature Temperature Source Pulse Rate 58 L Pulse Rate [Apical] Pulse Rate from SpO2 Sensor 65 Respiratory Rate 18 Respiratory Effort / Characteristics Respiratory Depth Respiratory Pattern Blood Pressure 150/88 H 150/76 H Blood Pressure [Left Arm] Blood Pressure Mean 98 111 Blood Pressure Mean [Left Arm] Blood Pressure Position Blood Pressure Position [Left Arm] Pulse Oximetry 95 Oxygen Delivery Method Sepsis Recent Fever Within 48 Hours Sepsis New/Unexplained Change in Mental Status Sepsis Action Taken by Nursing 04/08/24 10:51 04/08/24 10:56 04/08/24 11:00 Temperature Temperature Source Pulse Rate 55 L Pulse Rate [Apical] Pulse Rate from SpO2 Sensor 58 L Respiratory Rate 17 Respiratory Effort / Characteristics Respiratory Depth Respiratory Pattern Blood Pressure 155/79 H 152/78 H Blood Pressure [Left Arm] Blood Pressure Mean 89 97 Blood Pressure Mean [Left Arm] Blood Pressure Position Blood Pressure Position [Left Arm] Pulse Oximetry 92 Oxygen Delivery Method Sepsis Recent Fever Within 48 Hours Sepsis New/Unexplained Change in Mental Status Sepsis Action Taken by Nursing 04/08/24 11:00 04/08/24 11:00 04/08/24 11:03 Temperature Temperature Source Pulse Rate 63 Pulse Rate [Apical] Pulse Rate from SpO2 Sensor 66 Respiratory Rate 21 Respiratory Effort / Characteristics Respiratory Depth Respiratory Pattern Blood Pressure 152/78 H 152/78 H Blood Pressure [Left Arm] Blood Pressure Mean 97 97 Blood Pressure Mean [Left Arm] Blood Pressure Position Blood Pressure Position [Left Arm] Pulse Oximetry 94 Oxygen Delivery Method Sepsis Recent Fever Within 48 Hours Sepsis New/Unexplained Change in Mental Status Sepsis Action Taken by Nursing 04/08/24 11:09 04/08/24 11:10 04/08/24 11:15 Temperature 36.8 C Temperature Source Oral Pulse Rate 63 Pulse Rate [Apical] 64 Pulse Rate from SpO2 Sensor 80 Respiratory Rate 26 H 22 Respiratory Effort / Characteristics Respiratory Depth Respiratory Pattern Blood Pressure 160/99 H Blood Pressure [Left Arm] 160/99 H Blood Pressure Mean 104 Blood Pressure Mean [Left Arm] 119 Blood Pressure Position Blood Pressure Position [Left Arm] Semi-fowlers Pulse Oximetry 94 94 Oxygen Delivery Method Room Air Sepsis Recent Fever Within 48 Hours Sepsis New/Unexplained Change in Mental Status Sepsis Action Taken by Nursing 04/08/24 11:24 04/08/24 11:30 04/08/24 11:30 Temperature Temperature Source Pulse Rate 70 Pulse Rate [Apical] 59 L Pulse Rate from SpO2 Sensor 69 Respiratory Rate 20 21 Respiratory Effort / Characteristics Non-Labored Spontaneous Respiratory Depth Normal Respiratory Pattern Regular Blood Pressure 160/104 H Blood Pressure [Left Arm] 160/104 H Blood Pressure Mean 135 Blood Pressure Mean [Left Arm] 122 Blood Pressure Position Blood Pressure Position [Left Arm] Semi-fowlers Pulse Oximetry 92 94 Oxygen Delivery Method Room Air Sepsis Recent Fever Within 48 Hours Sepsis New/Unexplained Change in Mental Status Sepsis Action Taken by Nursing 04/08/24 11:30 04/08/24 11:30 Temperature Temperature Source Pulse Rate Pulse Rate [Apical] Pulse Rate from SpO2 Sensor Respiratory Rate Respiratory Effort / Characteristics Respiratory Depth Respiratory Pattern Blood Pressure 160/104 H 160/104 H Blood Pressure [Left Arm] Blood Pressure Mean 135 135 Blood Pressure Mean [Left Arm] Blood Pressure Position Blood Pressure Position [Left Arm] Pulse Oximetry Oxygen Delivery Method Sepsis Recent Fever Within 48 Hours Sepsis New/Unexplained Change in Mental Status Sepsis Action Taken by Nursing Laboratory Data 04/08/24 10:28 04/08/24 10:28 Lab Results 04/08/24 04/08/24 Range/Units 10:28 11:24 WBC 4.70 L (4.8-10.8) K/ul RBC 4.46 L (4.70-6.10) M/uL Hgb 15.2 (14.0-18.0) g/dl Hct 43.1 (42.0-52.0) % MCV 96.6 (80.0-100.0) fL MCH 34.1 H (25.0-34.0) pg MCHC 35.3 (32.0-36.0) g/dL RDW Std Deviation 46.3 (36.4-46.3) fL RDW Coeff of Andrés 12.8 (11.5-14.5) % Plt Count 154 (130-400) K/uL MPV 9.3 L (9.4-12.4) fL Immature Gran % (Auto) 0.2 % Neut % (Auto) 63.4 % Lymph % (Auto) 22.8 % [place] % (Auto) 11.5 % Eos % (Auto) 1.5 % Baso % (Auto) 0.6 % Neut # (Auto) 2.98 (1.40-6.50) K/uL Lymph # (Auto) 1.07 L (1.20-3.40) K/uL [place] # (Auto) 0.54 (0.11-0.59) K/uL Eos # (Auto) 0.07 (0.00-0.50) K/uL Baso # (Auto) 0.03 (0.00-0.20) K/uL Immature Gran # (Auto) 0.01 (0.01-0.20) K/uL PT 11.4 (9.0-12.0) Seconds INR 1.1 (0.9-1.1) APTT 27 (21-31) Seconds PTT Ratio 1.0 Sodium 134 L (136-145) mmol/L Potassium 3.8 (3.5-5.1) mmol/L Chloride 102 (98-107) mmol/L Carbon Dioxide 29 (21-32) mmol/L Anion Gap 3 (3-11) BUN 28 H (6-23) mg/dl Creatinine 1.10 (0.6-1.4) mg/dl Est Cr Clr Drug Dosing 58.7 ml/min Est GFR ( Amer) 71.6 ml/min Est GFR (Non-Af Amer) 61.8 ml/min BUN/Creatinine Ratio 25.5 H (10-20) Glucose 155 H (70-99(Fasting)) mg/dl Calcium 8.5 L (8.6-10.3) mg/dl Magnesium 1.9 (1.7-2.4) mg/dl Total Bilirubin 1.5 H (0.2-1.0) mg/dl AST 15 (13-39) U/L ALT 16 (7-52) U/L Alkaline Phosphatase 50 (34-104) U/L Troponin I High Sens 4.1 (0-20) pg/ml Total Protein 5.9 L (6.0-8.3) gm/dl Albumin 3.6 (3.4-5.0) gm/dl Globulin 2.3 L (2.5-4.0) gm/dl Albumin/Globulin Ratio 1.6 (0.9-2) Urine Color Yellow Urine Appearance Clear (Clear) Urine pH 7.5 (4.5-7.5) Ur Specific [place] 1.042 H (1.000-1.030) Urine Protein Negative (Negative) Urine Glucose (UA) Negative (Negative) Urine Ketones Negative (Negative) Urine Blood Negative (Negative) Urine Nitrite Negative (Negative) Urine Bilirubin Negative (Negative) Urine Urobilinogen Negative (Negative) Ur Leukocyte Esterase Trace H (Negative) Urine WBC (Auto) 0-5 (0-5) /hpf Urine RBC (Auto) 0-2 (0-2) /hpf U Hyaline Cast (Auto) 0-2 (0-2) /lpf U Epithel Cells (Auto) 0-2 (0-2) /hpf Urine Bacteria (Auto) None Seen (None Seen) Blood Type B Positive Antibody Screen NEGATIVE Administered Medications Discontinued Medications Tenecteplase 23 mg/ Syringe 4.6 mls @ 55.2 mls/min IV NOW ONE; Protocol Stop: 04/08/24 10:59 Last Admin: 04/08/24 10:56 Dose: 55.2 mls/min Documented By: NADEEN Co-signed By: Ioversol (Optiray 320 125ml) 112 ml IV ONCE ONE Stop: 04/08/24 10:18 Last Admin: 04/08/24 10:18 Dose: 112 ml Documented By: PER Miscellaneous (Stat Iv/Im) 1 each N/A NOW STA Stop: 04/08/24 10:49 Last Admin: 04/08/24 11:51 Dose: Not Given Documented By: CEF Sodium Chloride (Sodium Chloride 0.9% 10ml Flush) 20 ml IV NOW STA Stop: 04/08/24 10:49 Last Admin: 04/08/24 11:03 Dose: 20 ml Documented By: NADEEN Imaging Data Radiologist's Impression: Head CT 04/08/24 10:10 CT SCAN OF THE BRAIN WITHOUT IV CONTRAST CLINICAL HISTORY: Neurological deficit. Stroke like symptoms. COMPARISON STUDY: No priors. TECHNIQUE: Unenhanced axial CT scan of the brain is performed from the vertex to the skull base. A dose lowering technique was utilized adhering to the principles of ALARA. FINDINGS: Brain parenchyma: There is age-related involutional change noting mild subcortical and periventricular microangiopathic disease. There is no hemorrhage, mass effect, or evidence of acute territorial ischemia by CT criteria. Collins-white matter differentiation is preserved. No extra-axial fluid collection is seen. Ventricles, sulci, cisterns: Prominent secondary to involutional change. Intracranial vasculature: There is atherosclerotic calcification of the cavernous carotid and vertebral arteries. Calvarium: Unremarkable. Sinuses and mastoids: The visualized paranasal sinuses are clear. The mastoid air cells are well pneumatized. Orbits: The bony orbits are grossly intact. There are bilateral ocular lens implants. IMPRESSION: There is no hemorrhage, mass effect, or evidence of acute territorial ischemia by CT criteria. ACT 112: Negative or not required by law. Electronically signed by: Khurram Hsusein M.D. 04/08/2024 10:34 AM Head CTA 04/08/24 10:10 CT angio head w con CLINICAL HISTORY: 83 years-old Male with neuro deficit, acute stroke suspected. Acute stroke like symptoms COMPARISON STUDY: Head CT of same day TECHNIQUE: Following the IV administration of 112 cc of Optiray, CT angiogram of the brain was performed from the skull base to the vertex. Images are reviewed in the axial, sagittal, and coronal planes. 3-D MIPS images are created and assessed. IV contrast was administered without complication. All measurements were obtained according to NASCET criteria. A dose lowering technique was utilized adhering to the principles of ALARA. FINDINGS: CT ANGIOGRAM OF THE BRAIN: The imaged bilateral internal carotid arteries are patent. The bilateral anterior and middle cerebral arteries are also patent. The vertebrobasilar system and posterior cerebral arteries are widely patent. There is no aneurysm, high-grade stenosis, or proximal branch occlusion identified. Dural sinuses appear patent. IMPRESSION: Unremarkable CTA of the head. ACT 112: Negative or not required by law. The above report was generated using voice recognition software. It may contain grammatical, syntax or spelling errors. Electronically signed by: Mauro Brandon M.D. 04/08/2024 10:56 AM Neck CTA 04/08/24 10:10 CT ANGIOGRAM OF THE NECK CLINICAL HISTORY: Neurological deficit. Stroke like symptoms. COMPARISON STUDY: No priors. TECHNIQUE: Following the IV administration of 112 of Optiray 320, CT angiogram of the neck was performed from the aortic arch to the skull base. Images are reviewed in the axial, sagittal, and coronal planes. 3-D MIPS images are created and assessed. IV contrast was administered without complication. All measurements were calculated based on NASCET criteria. A dose lowering technique was utilized adhering to the principles of ALARA. CT DOSE: 1317.28 mGy.cm FINDINGS: Thoracic aorta: There is atherosclerotic calcification of the thoracic aorta. Visualized portions of the thoracic aorta are normal in caliber. The aortic arch demonstrates standard 3-vessel anatomy. Right carotid arterial system: The right common carotid artery is widely patent, as are the right internal and external carotid arteries. Calcified plaque is seen in the carotid bulb. Left carotid arterial system: The left common carotid artery is widely patent, as are the left internal and external carotid arteries. Mild calcified plaque is noted in the carotid bulb. Vertebral arteries: The vertebral arteries are widely patent bilaterally and codominant. Subclavian arteries: Widely patent bilaterally. Intracranial vasculature: The visualized intracranial vessels at the skull base are patent. Jugular veins: Widely patent bilaterally. Brain parenchyma: The visualized brain parenchyma the skull base is within normal limits. Lung apices: Partially visualized upper lobe lung parenchyma appears clear. Soft tissues: The visualized pharyngeal soft tissues are normal in appearance noting angiographic phase technique. The oropharyngeal airway appears widely patent. The salivary and thyroid glands are normal in appearance. No cervical lymphadenopathy is seen. Skeletal structures: The skeletal structures are osteopenic. The visualized calvarium at the skull base appears intact. The imaged cervical spine is maintained noting multilevel spondylosis. Sinuses and mastoids: The visualized paranasal sinuses are clear. The mastoid air cells are well pneumatized. Cerumen is noted in the left external auditory canal. IMPRESSION: Unremarkable CT angiogram of the neck. ACT 112: Negative or not required by law. Electronically signed by: Khurram Hussein M.D. 04/08/2024 10:37 AM Discharge Plan Visit Data Chief Complaint: Stroke Alert Stated Complaint: STROKE ALERT ED Provider: Earl Son Discharge Problem: Stroke-like symptoms Patient Disposition: Admitted As Inpatient Discharge Instructions Interventions: ED Discharge Assessment Last Done: 04/08/24 12:25
--- NOTE | 2024-04-08 10:36 | CT Scan Report ---
CT SCAN OF THE BRAIN WITHOUT IV CONTRAST CLINICAL HISTORY: Neurological deficit. Stroke like symptoms. COMPARISON STUDY: No priors. TECHNIQUE: Unenhanced axial CT scan of the brain is performed from the vertex to the skull base. A do se lowering technique was utilized adhering to the principles of ALARA. FINDINGS: Brain parenchyma: There is age-related involutional change noting mild subcortical and periventricula r microangiopathic disease. There is no hemorrhage, mass effect, or evidence of acute territorial isc hemia by CT criteria. Collins-white matter differentiation is preserved. No extra-axial fluid collection is seen. Ventricles, sulci, cisterns: Prominent secondary to involutional change. Intracranial vasculature: There is atherosclerotic calcification of the cavernous carotid and vertebr al arteries. Calvarium: Unremarkable. Sinuses and mastoids: The visualized paranasal sinuses are clear. The mastoid air cells are well pneu matized. Orbits: The bony orbits are grossly intact. There are bilateral ocular lens implants. IMPRESSION: There is no hemorrhage, mass effect, or evidence of acute territorial ischemia by CT marco goldstein. ACT 112: Negative or not required by law. Electronically signed by: Khurram Hussein M.D. 04/08/2024 10:34 AM
--- NOTE | 2024-04-08 10:38 | CT Scan Report ---
CT ANGIOGRAM OF THE NECK CLINICAL HISTORY: Neurological deficit. Stroke like symptoms. COMPARISON STUDY: No priors. TECHNIQUE: Following the IV administration of 112 of Optiray 320, CT angiogram of the neck was perfor med from the aortic arch to the skull base. Images are reviewed in the axial, sagittal, and coronal p lanes. 3-D MIPS images are created and assessed. IV contrast was administered without complication. A ll measurements were calculated based on NASCET criteria. A dose lowering technique was utilized adh ering to the principles of ALARA. CT DOSE: 1317.28 mGy.cm FINDINGS: Thoracic aorta: There is atherosclerotic calcification of the thoracic aorta. Visualized portions of the thoracic aorta are normal in caliber. The aortic arch demonstrates standard 3-vessel anatomy. Right carotid arterial system: The right common carotid artery is widely patent, as are the right int ernal and external carotid arteries. Calcified plaque is seen in the carotid bulb. Left carotid arterial system: The left common carotid artery is widely patent, as are the left mechanical engineering intern al and external carotid arteries. Mild calcified plaque is noted in the carotid bulb. Vertebral arteries: The vertebral arteries are widely patent bilaterally and codominant. Subclavian arteries: Widely patent bilaterally. Intracranial vasculature: The visualized intracranial vessels at the skull base are patent. Jugular veins: Widely patent bilaterally. Brain parenchyma: The visualized brain parenchyma the skull base is within normal limits. Lung apices: Partially visualized upper lobe lung parenchyma appears clear. Soft tissues: The visualized pharyngeal soft tissues are normal in appearance noting angiographic pha se technique. The oropharyngeal airway appears widely patent. The salivary and thyroid glands are nor mal in appearance. No cervical lymphadenopathy is seen. Skeletal structures: The skeletal structures are osteopenic. The visualized calvarium at the skull ba se appears intact. The imaged cervical spine is maintained noting multilevel spondylosis. Sinuses and mastoids: The visualized paranasal sinuses are clear. The mastoid air cells are well pneu matized. Cerumen is noted in the left external auditory canal. IMPRESSION: Unremarkable CT angiogram of the neck. ACT 112: Negative or not required by law. Electronically signed by: Khurram Hussein M.D. 04/08/2024 10:37 AM
[2024-04-08] MEDS: TENECTEPLASE 23 MG in SYRINGE 0 ML IV ONE (10:56)
--- NOTE | 2024-04-08 10:58 | CT Scan Report ---
CT angio head w con CLINICAL HISTORY: 83 years-old Male with neuro deficit, acute stroke suspected. Acute stroke like symptoms COMPARISON STUDY: Head CT of same day TECHNIQUE: Following the IV administration of 112 cc of Optiray, CT angiogram of the brain was perfor med from the skull base to the vertex. Images are reviewed in the axial, sagittal, and coronal planes . 3-D MIPS images are created and assessed. IV contrast was administered without complication. All me asurements were obtained according to NASCET criteria. A dose lowering technique was utilized adherin g to the principles of ALARA. FINDINGS: CT ANGIOGRAM OF THE BRAIN: The imaged bilateral internal carotid arteries are patent. The bilateral anterior and middle cerebral arteries are also patent. The vertebrobasilar system and posterior cerebral arteries are widely figueroa nt. There is no aneurysm, high-grade stenosis, or proximal branch occlusion identified. Dural sinuses appear patent. IMPRESSION: Unremarkable CTA of the head. ACT 112: Negative or not required by law. The above report was generated using voice recognition software. It may contain grammatical, syntax o r spelling errors. Electronically signed by: Mauro Brandon M.D. 04/08/2024 10:56 AM
[2024-04-08] MEDS ORDERED: No Aspirin within 24hrs of THROMBOLYTIC-Stroke PO SCH (11:00)
[2024-04-08] MEDS: SODIUM CHLORIDE 0.9% 10ML FLUSH IV STA (11:03)
[2024-04-08 11:05] LABS: Basophils # (auto) 0.03 K/uL (0.00-0.20); Basophils % (auto) 0.6 %; Eosinophils # (auto) 0.07 K/uL (0.00-0.50); Eosinophils % (auto) 1.5 %; Hematocrit (blood only) 43.1 % (42.0-52.0); Hemoglobin 15.2 g/dl (14.0-18.0); Immature Granulocytes # (auto) 0.01 K/uL (0.01-0.20); Immature Granulocytes % (auto) 0.2 %; Lymphocytes # (auto) 1.07 K/uL (1.20-3.40); Lymphocytes % (auto) 22.8 %; Mean Corpuscular Hemoglobin 34.1 pg (25.0-34.0); Mean Corpuscular Hgb Conc 35.3 g/dL (32.0-36.0); Mean Corpuscular Volume 96.6 fL (80.0-100.0); Mean Platelet Volume 9.3 fL (9.4-12.4); Monocytes # (auto) 0.54 K/uL (0.11-0.59); Monocytes % (auto) 11.5 %; Neutrophils # (auto) 2.98 K/uL (1.40-6.50); Neutrophils % (auto) 63.4 %; Platelet Count 154 K/uL (130-400); RDW Coefficient of Variation 12.8 % (11.5-14.5); RDW Standard Deviation 46.3 fL (36.4-46.3); Red Blood Count 4.46 M/uL (4.70-6.10)
[2024-04-08 11:07] LABS: Albumin Globulin Ratio 1.6 (0.9-2); Albumin Level 3.6 gm/dl (3.4-5.0); BUN Creatinine Ratio 25.5 (10-20); Bilirubin,Total 1.5 mg/dl (0.2-1.0); Calcium 8.5 mg/dl (8.6-10.3); Creatinine Clr Calc Pharmacy 58.7 ml/min; Est GFR (African American) 71.6 ml/min; Est GFR (Non-African American) 61.8 ml/min; Globulin 2.3 gm/dl (2.5-4.0); Magnesium 1.9 mg/dl (1.7-2.4); Potassium 3.8 mmol/L (3.5-5.1); Total Protein 5.9 gm/dl (6.0-8.3)
[2024-04-08 11:13] LABS: Troponin I High Sensitivity 4.1 pg/ml (0-20)
[2024-04-08 11:20] LABS: INR 1.1 (0.9-1.1); Partial Thromboplastin Time 27 Seconds (21-31); Prothrombin Time 11.4 Seconds (9.0-12.0)
[2024-04-08] MEDS ORDERED: PHARMACIST DISCHARGE MED REC CONSULT PRN ×2 (11:22→13:16)
[2024-04-08] MEDS ORDERED: ICU Protocol for HYPERglycemia SCH (11:30)
--- NOTE | 2024-04-08 11:44 | History & Physical Report ---
Date of Service April 08, 2024 Assessment & Plan (1) Stroke-like symptoms: Plan: Brain MRI wo IV contrast although suspect aborted stroke vs. TIA if MRI negative Symptoms mostly if not completely resolved at time of admission s/p TNK Stroke protocol s/p TNK, CT head in 24 hours Hold anti-hypertensives to allow permissive hypertension, aim sBP < 180 or dBP < 105 per s/p TNK protocol TTE Telemetry Admit to ICU Consult neurology Plan VTE Prophyalxis - SCDs Diet - NPO pending SLT consult / dyaphagia screen Disposition - admit to ICU Admission and Anticipated Discharge Date Admission Date: April 08, 2024 History of Present Illness Chief Complaint: Stroke like symptoms Primary Care Provider: Olga Edwards MD Abdullahi Zhu is an 83 year old male who presents to the ER with left sided facial droop, slurred speech. Symptoms started at approximately 9am this morning when he first noticed some drooling in the mouth and had to spit. His noticed some facial droop and left arm weakness as he struggled to put on his belt and shoes. Reportedly he has some left sided gaze weakness when he first came to the ER although the patient did not notice any vision changes. He reports taking all his morning medications. Allergies Allergy/AdvReac Type Severity Reaction Status Date / Time oxycodone [From Percocet] AdvReac Intermediate Hypotension Verified 04/08/24 11:59 Home Medications Medication Instructions Recorded Confirmed Type lisinopril 40 mg tablet 40 mg PO QAM 03/18/18 04/08/24 History multivitamin (Multiple Vitamins 1 tab PO QAM 03/18/18 04/08/24 History tablet) rosuvastatin 10 mg tablet 10 mg PO QAM 03/18/18 04/08/24 History celecoxib 200 mg capsule (Celebrex) 200 mg PO QAM PRN Pain 06/20/22 04/08/24 History tamsulosin 0.4 mg capsule See Rx Instructions .Route 08/01/23 04/08/24 Rx .COMPLEX #90 caps mirabegron 50 mg tablet,extended 50 mg PO DAILY #90 tabs 10/10/23 04/08/24 Rx release 24 hr (Myrbetriq) amlodipine 10 mg tablet 10 mg PO DAILY 04/08/24 04/08/24 History sildenafil 100 mg tablet 0 mg PO DAILY PRN sexual activity 04/08/24 04/08/24 History timolol maleate 0.5 % eye drops 1 drp OPL QAM 04/08/24 04/08/24 History Past Med/Surg History Problem List (Updated 04/08/24 @ 20:43 by Jorge L Amezquita DO) CVA (cerebral vascular accident) Stroke-like symptoms (Acute) Inguinal hernia Erectile dysfunction 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 Encounter for pre-operative examination BPH loc w urin obs/LUTS Medical History Osteoarthritis Kidney stones passed without intervetion BPH (benign prostatic hyperplasia) Hyperlipidemia HTN (hypertension) Surgical History History of cholecystectomy H/O inguinal hernia repair bilateral Hx of bilateral cataract extraction Hx of elbow surgery calcium deposit right History of arthroscopy left x2 History of total shoulder replacement right History of total hip arthroplasty left/right History of total knee replacement left History of colonoscopy Family History Other Cancer Heart disease Hypertension Social History Smoking Status: Never smoker Second Hand Exposure: No; Do You Dip or Chew Tobacco: No; Tobacco Cessation Education Requested by Patient: No Hx Alcohol Use: Yes Alcohol type: other Hx Substance Use: No Preferred Language: Bulgarian Communication Ability: Effective Hearing Ability: Normal Linseed Oil Order Filler Required: Yes Beliefs That Will Affect Care: None marital status: Current Living Situation: Spouse current occupational status: retired Other Information That Helps Us Care for You: No Feels Safe at Home: Yes Safety Concerns: Feels Safe At This Time Assistive Devices: None Review of Systems Review of Systems: All systems reviewed & are unremarkable except as noted in HPI & below Physical Exam Constitutional: WD/WN, vitals as above Eyes: PERRL, conjunctivae normal, anicteric sclerae normal visual mckoy by confrontation and EOM intact bilaterally; no nystagmus ENMT: external ear and nose normal, oropharynx normal Neck: trachea midline, no thyromegaly Respiratory: normal respiratory effort, lungs clear to auscultation Cardiovascular: RRR, no murmur, no edema Gastrointestinal (Abdomen): normal bowel sounds, soft, nontender, no hepatosplenomegaly Musculoskeletal: no cyanosis or clubbing, extremities motor strength 5/5 Skin: no rashes, warm and dry Neurologic: moves all extremities and awake; no focal motor deficits and not confused Speech / Cognition: normal speech, no expressive aphasia, no recept dea aphasia and normal cognition Motor/Sensory: + pronator drift (minimal on left sided); no tremor Cranial Nerves: PERRL, normal accommodation, EOM intact bilaterally, normal facial strength, tongue midline, able to rotate head bilaterally, able to elevate shoulders bilaterally, no nystagmus and symmetric palate elevation Psychiatric: A+Ox3, euthymic affect Results & Data Results & Data Vital Signs (Past 12 Hours) Vital Signs Temp Pulse Pulse Resp BP BP Pulse Ox 04/08/24 11:30 59 L 21 160/104 H 94 04/08/24 11:15 36.8 C 64 22 160/99 H 94 04/08/24 10:56 155/79 H 04/08/24 10:51 55 L 17 92 04/08/24 10:43 150/76 H 04/08/24 10:31 150/88 H 04/08/24 10:30 58 L 18 95 04/08/24 10:27 146/73 H 04/08/24 10:21 36.8 C 61 18 146/73 H 94 04/08/24 10:12 92 O2 Del Method 04/08/24 11:30 Room Air 04/08/24 11:15 Room Air 04/08/24 10:56 04/08/24 10:51 04/08/24 10:43 04/08/24 10:31 04/08/24 10:30 04/08/24 10:27 04/08/24 10:21 Room Air 04/08/24 10:12 Room Air Laboratory Results Abnormal lab results 04/08/24 04/08/24 Range/Units 10:28 11:24 WBC 4.70 L (4.8-10.8) K/ul RBC 4.46 L (4.70-6.10) M/uL MCH 34.1 H (25.0-34.0) pg MPV 9.3 L (9.4-12.4) fL Lymph # (Auto) 1.07 L (1.20-3.40) K/uL Sodium 134 L (136-145) mmol/L BUN 28 H (6-23) mg/dl BUN/Creatinine Ratio 25.5 H (10-20) Glucose 155 H (70-99(Fasting)) mg/dl Calcium 8.5 L (8.6-10.3) mg/dl Total Bilirubin 1.5 H (0.2-1.0) mg/dl Total Protein 5.9 L (6.0-8.3) gm/dl Globulin 2.3 L (2.5-4.0) gm/dl Ur Specific Sarah 1.042 H (1.000-1.030) Ur Leukocyte Esterase Trace H (Negative) Diagnostic Findings CT SCAN OF THE BRAIN WITHOUT IV CONTRAST CLINICAL HISTORY: Neurological deficit. Stroke like symptoms. COMPARISON STUDY: No priors. TECHNIQUE: Unenhanced axial CT scan of the brain is performed from the vertex to the skull base. A dose lowering technique was utilized adhering to the principles of ALARA. FINDINGS: Brain parenchyma: There is age-related involutional change noting mild subcortical and periventricular microangiopathic disease. There is no hemorrhage, mass effect, or evidence of acute territorial ischemia by CT criteria. Collins-white matter differentiation is preserved. No extra-axial fluid collection is seen. Ventricles, sulci, cisterns: Prominent secondary to involutional change. Intracranial vasculature: There is atherosclerotic calcification of the cavernous carotid and vertebral arteries. Calvarium: Unremarkable. Sinuses and mastoids: The visualized paranasal sinuses are clear. The mastoid air cells are well pneumatized. Orbits: The bony orbits are grossly intact. There are bilateral ocular lens implants. IMPRESSION: There is no hemorrhage, mass effect, or evidence of acute territorial ischemia by CT criteria. CT angio head w con CLINICAL HISTORY: 83 years-old Male with neuro deficit, acute stroke suspected. Acute stroke like symptoms COMPARISON STUDY: Head CT of same day TECHNIQUE: Following the IV administration of 112 cc of Optiray, CT angiogram of the brain was performed from the skull base to the vertex. Images are reviewed in the axial, sagittal, and coronal planes. 3-D MIPS images are created and assessed. IV contrast was administered without complication. All measurements were obtained according to NASCET criteria. A dose lowering technique was utilized adhering to the principles of ALARA. FINDINGS: CT ANGIOGRAM OF THE BRAIN: The imaged bilateral internal carotid arteries are patent. The bilateral anterior and middle cerebral arteries are also patent. The vertebrobasilar system and posterior cerebral arteries are widely patent. There is no aneurysm, high-grade stenosis, or proximal branch occlusion identified. Dural sinuses appear patent. IMPRESSION: Unremarkable CTA of the head. CT ANGIOGRAM OF THE NECK CLINICAL HISTORY: Neurological deficit. Stroke like symptoms. COMPARISON STUDY: No priors. TECHNIQUE: Following the IV administration of 112 of Optiray 320, CT angiogram of the neck was performed from the aortic arch to the skull base. Images are reviewed in the axial, sagittal, and coronal planes. 3-D MIPS images are created and assessed. IV contrast was administered without complication. All measurements were calculated based on NASCET criteria. A dose lowering technique was utilized adhering to the principles of ALARA. CT DOSE: 1317.28 mGy.cm FINDINGS: Thoracic aorta: There is atherosclerotic calcification of the thoracic aorta. Visualized portions of the thoracic aorta are normal in caliber. The aortic arch demonstrates standard 3-vessel anatomy. Right carotid arterial system: The right common carotid artery is widely patent, as are the right internal and external carotid arteries. Calcified plaque is seen in the carotid bulb. Left carotid arterial system: The left common carotid artery is widely patent, as are the left internal and external carotid arteries. Mild calcified plaque is noted in the carotid bulb. Vertebral arteries: The vertebral arteries are widely patent bilaterally and codominant. Subclavian arteries: Widely patent bilaterally. Intracranial vasculature: The visualized intracranial vessels at the skull base are patent. Jugular veins: Widely patent bilaterally. Brain parenchyma: The visualized brain parenchyma the skull base is within normal limits. Lung apices: Partially visualized upper lobe lung parenchyma appears clear. Soft tissues: The visualized pharyngeal soft tissues are normal in appearance noting angiographic phase technique. The oropharyngeal airway appears widely patent. The salivary and thyroid glands are normal in appearance. No cervical lymphadenopathy is seen. Skeletal structures: The skeletal structures are osteopenic. The visualized calvarium at the skull base appears intact. The imaged cervical spine is maintained noting multilevel spondylosis. Sinuses and mastoids: The visualized paranasal sinuses are clear. The mastoid air cells are well pneumatized. Cerumen is noted in the left external auditory canal. IMPRESSION: Unremarkable CT angiogram of the neck. Medications Administered ER medications given: Tenecteplase 23 mg IV Sodium chloride 20 mL IV flush ECG Rate (beats per minute): 62 Rhythm: sinus with SA Findings: no acute ischemic change Comparison ECG Date: from (February 08, 2020) Change: the following changes noted (Sinus arrhythmia is new, suspect lead placement changes causing anterior lead difference) Code Status & VTE Plan Code Status Full PG Care Time/CCT Total # of Minutes Spent Total Time Spent with Patient: Total time spent is greater than 50% in coordination of care (as documented) at patient's floor/unit and/or counseling patient: Coding Level of Care Code 86216 INT INP/OBS CARE 3/75MIN Diagnoses Stroke-like symptoms R29.90
[2024-04-08 11:47] LABS: Appearance Urine Clear (Clear); Bacteria Urine Automated None Seen (None Seen); Bilirubin Urine Negative (Negative); Blood Urine Negative (Negative); Cast Urine Automated 0-2 /lpf (0-2); Color Urine Yellow; Epithelial Cell Urine Auto 0-2 /hpf (0-2); Glucose Urine UA Negative (Negative); Ketones Urine Negative (Negative); Leukocyte Esterase Urine Trace (Negative); Nitrite Urine Negative (Negative); Protein Urine Negative (Negative); RBC Urine Automated 0-2 /hpf (0-2); Specific Gravity Urine 1.042 (1.000-1.030); Urobilinogen Urine Negative (Negative); WBC Urine Automated 0-5 /hpf (0-5); pH Urine 7.5 (4.5-7.5)
[2024-04-08] MEDS: STAT IV/IM STA (11:51)
--- NOTE | 2024-04-08 14:44 | Magnetic Resonance Report ---
MRI OF THE BRAIN WITHOUT CONTRAST CLINICAL HISTORY: Left facial droop extremity weak + garbled speech COMPARISON STUDY: Head CT and CT of the head April 08, 2024. TECHNIQUE: Utilizing a 1.5 Greer magnet and dedicated coil, multiplanar, multiecho imaging of the bra in was performed without IV contrast. FINDINGS: There are several foci of restricted diffusion within the right basal ganglia which measure up to 1.5 cm. These are hypointense on the ADC map. There may be minimal associated FLAIR signal abn ormality. There is no corresponding T2 hyperintensity on the T2-weighted sequences. A few additional small foci of restricted diffusion within the right cerebral hemisphere also favor small acute infarc t. There is no evidence for hemorrhagic conversion. There is no mass effect. Ventricular system is un remarkable. Basal cisterns are patent. There are no extra-axial collections. White matter T2 hyperint ense foci suggest small vessel disease. IMPRESSION: 1. Several acute infarcts within the right basal ganglia which measure up to 1.5 cm. A few additional punctate foci of restricted diffusion within the right cerebral hemisphere suggestive of an addition al acute infarcts. The findings raise the possibility of an embolic etiology. 2. No intracranial hemorrhage. No mass effect. ACT 112: Negative or not required by law. Electronically signed by: Nestor Medrano M.D. 04/08/2024 2:43 PM
[2024-04-08] MEDS: ICU Protocol for HYPERglycemia SCH (15:22)
--- NOTE | 2024-04-08 15:24 | Electrocardiogram Report ---
Test Reason : Blood Pressure : */* mmHG Vent. Rate : 62 BPM Atrial Rate : 62 BPM P-R Int : 202 ms QRS Dur : 84 ms QT Int : 410 ms P-R-T Axes : 64 -8 31 degrees QTcB Int : 416 ms Sinus rhythm with frequent PACs Poor R wave progression, consider anterior MN vs. lead placement vs. LVH Abnormal ECG When compared with ECG of 08-Feb-2020 11:12, T wave amplitude has decreased in Anterior leads Confirmed by Wilbur Ma ([id number]) on 04/08/2024 3:24:11 PM Referred By: REFERRED SELF Confirmed By: Wilbur Ma
--- NOTE | 2024-04-08 15:34 | Critical Care Consultation ---
Date of Consultation April 08, 2024 Assessment & Plan (1) CVA (cerebral vascular accident): Reason Critically Ill: 83-year-old male with strokelike symptoms status post administration TNK PLAN: Neuro: Acute CVA -Status post TNK CV: Hypertension -Consider reinitiating blood pressure control tomorrow GI/Nutrition: Hyperlipidemia -High intensity statin to start tomorrow Heme: Status post TNKase Endocrine: ICU hyperglycemia protocol Vascular access: Peripheral IVs Code Status: Full code Disposition: ICU (2) HTN (hypertension): (3) Hyperlipidemia: History of Present Illness Reason for Consultation: Status post tPA administration Attending Physician: Narciso Vallejo MD History of Present Illness Patient is an 83-year-old male who presented to the emergency department for increase in clumsiness and difficulty speaking which his was concern for possible CVA. While in the emergency department he underwent evaluation for acute CVA. In consultation with [facility] they determined the patient should receive TNK which did occur. reports a few minutes after administra tion the cannot K the patient started to have resolution of his symptoms. During my evaluation the patient feels that he is back to baseline And is hopeful for discharge tomorrow Allergies Allergy/AdvReac Type Severity Reaction Status Date / Time oxycodone [From Percocet] AdvReac Intermediate Hypotension Verified 04/08/24 11:59 Home Medications Medication Instructions Recorded Confirmed Type lisinopril 40 mg tablet 40 mg PO QAM 03/18/18 04/08/24 History multivitamin (Multiple Vitamins 1 tab PO QAM 03/18/18 04/08/24 History tablet) rosuvastatin 10 mg tablet 10 mg PO QAM 03/18/18 04/08/24 History celecoxib 200 mg capsule (Celebrex) 200 mg PO QAM PRN Pain 06/20/22 04/08/24 History tamsulosin 0.4 mg capsule See Rx Instructions .Route 08/01/23 04/08/24 Rx .COMPLEX #90 caps mirabegron 50 mg tablet,extended 50 mg PO DAILY #90 tabs 10/10/23 04/08/24 Rx release 24 hr (Myrbetriq) amlodipine 10 mg tablet 10 mg PO DAILY 04/08/24 04/08/24 History sildenafil 100 mg tablet 0 mg PO DAILY PRN sexual activity 04/08/24 04/08/24 History timolol maleate 0.5 % eye drops 1 drp OPL QAM 04/08/24 04/08/24 History Patient History Medical History Osteoarthritis Kidney stones passed without intervetion BPH (benign prostatic hyperplasia) Hyperlipidemia HTN (hypertension) Surgical History History of cholecystectomy H/O inguinal hernia repair bilateral Hx of bilateral cataract extraction Hx of elbow surgery calcium deposit right History of arthroscopy left x2 History of total shoulder replacement right History of total hip arthroplasty left/right History of total knee replacement left History of colonoscopy Family History Other Cancer Heart disease Hypertension Social History Smoking Status: Never smoker Second Hand Exposure: No; Do You Dip or Chew Tobacco: No; Tobacco Cessation Education Requested by Patient: No Hx Alcohol Use: Yes Alcohol type: other Hx Substance Use: No Preferred Language: Turkish Communication Ability: Effective Hearing Ability: Normal 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 nontoxic. Skin: Warm, dry, Head: Atraumatic Ears, nose, mouth and throat: airway patent Cardiovascular: Normal peripheral perfusion Respiratory: no respiratory distress Gastrointestinal: Non distended Musculoskeletal: No deformity NIH stroke scale scoring reviewed Results & Data Results & Data Vital Signs (Past 12 Hours) Vital Signs Temp Pulse Pulse Resp BP BP Pulse Ox 04/08/24 14:33 74 19 90 04/08/24 14:30 142/88 H 04/08/24 14:30 142/88 H 04/08/24 14:18 81 17 133/92 92 04/08/24 14:00 37.7 C H 71 18 94 04/08/24 13:45 76 04/08/24 13:21 73 14 91 04/08/24 13:16 04/08/24 13:00 162/80 H 04/08/24 13:00 162/80 H 04/08/24 13:00 162/80 H 04/08/24 12:57 64 16 90 04/08/24 12:54 66 21 89 L 04/08/24 12:28 148/91 H 04/08/24 12:28 64 18 148/91 H 93 04/08/24 12:00 148/80 H 04/08/24 12:00 148/80 H 04/08/24 12:00 148/80 H 04/08/24 12:00 63 14 148/80 H 94 04/08/24 11:57 63 28 H 93 04/08/24 11:51 63 20 91 04/08/24 11:45 152/91 H 04/08/24 11:45 60 15 152/91 H 95 04/08/24 11:30 160/104 H 04/08/24 11:30 160/104 H 04/08/24 11:30 160/104 H 04/08/24 11:30 59 L 21 160/104 H 94 04/08/24 11:24 70 20 92 04/08/24 11:15 36.8 C 64 22 160/99 H 94 04/08/24 11:10 160/99 H 04/08/24 11:09 63 26 H 94 04/08/24 11:03 63 21 94 04/08/24 11:00 152/78 H 04/08/24 11:00 152/78 H 04/08/24 11:00 152/78 H 04/08/24 10:56 155/79 H 04/08/24 10:51 55 L 17 92 04/08/24 10:43 150/76 H 04/08/24 10:31 150/88 H 04/08/24 10:30 58 L 18 95 04/08/24 10:27 146/73 H 04/08/24 10:21 36.8 C 61 18 146/73 H 94 04/08/24 10:12 92 Pulse Ox O2 Del Method O2 Del Method 04/08/24 14:33 04/08/24 14:30 04/08/24 14:30 04/08/24 14:18 04/08/24 14:00 Room Air 04/08/24 13:45 04/08/24 13:21 04/08/24 13:16 93 Room Air 04/08/24 13:00 04/08/24 13:00 04/08/24 13:00 04/08/24 12:57 04/08/24 12:54 04/08/24 12:28 04/08/24 12:28 Room Air 04/08/24 12:00 04/08/24 12:00 04/08/24 12:00 04/08/24 12:00 Room Air 04/08/24 11:57 04/08/24 11:51 04/08/24 11:45 04/08/24 11:45 Room Air 04/08/24 11:30 04/08/24 11:30 04/08/24 11:30 04/08/24 11:30 Room Air 04/08/24 11:24 04/08/24 11:15 Room Air 04/08/24 11:10 04/08/24 11:09 04/08/24 11:03 04/08/24 11:00 04/08/24 11:00 04/08/24 11:00 04/08/24 10:56 04/08/24 10:51 04/08/24 10:43 04/08/24 10:31 04/08/24 10:30 04/08/24 10:27 04/08/24 10:21 Room Air 04/08/24 10:12 Room Air Critical Care Results & Data Vital Signs (Past 12 Hours) Vital Signs Temp Pulse Pulse Resp BP BP Pulse Ox 04/08/24 14:33 74 19 90 04/08/24 14:30 142/88 H 04/08/24 14:30 142/88 H 04/08/24 14:18 81 17 133/92 92 04/08/24 14:00 37.7 C H 71 18 94 04/08/24 13:45 76 04/08/24 13:21 73 14 91 04/08/24 13:16 04/08/24 13:00 162/80 H 04/08/24 13:00 162/80 H 04/08/24 13:00 162/80 H 04/08/24 12:57 64 16 90 04/08/24 12:54 66 21 89 L 04/08/24 12:28 148/91 H 04/08/24 12:28 64 18 148/91 H 93 04/08/24 12:00 148/80 H 04/08/24 12:00 148/80 H 04/08/24 12:00 148/80 H 04/08/24 12:00 63 14 148/80 H 94 04/08/24 11:57 63 28 H 93 04/08/24 11:51 63 20 91 04/08/24 11:45 152/91 H 04/08/24 11:45 60 15 152/91 H 95 04/08/24 11:30 160/104 H 04/08/24 11:30 160/104 H 04/08/24 11:30 160/104 H 04/08/24 11:30 59 L 21 160/104 H 94 04/08/24 11:24 70 20 92 04/08/24 11:15 36.8 C 64 22 160/99 H 94 04/08/24 11:10 160/99 H 04/08/24 11:09 63 26 H 94 04/08/24 11:03 63 21 94 04/08/24 11:00 152/78 H 04/08/24 11:00 152/78 H 04/08/24 11:00 152/78 H 04/08/24 10:56 155/79 H 04/08/24 10:51 55 L 17 92 04/08/24 10:43 150/76 H 04/08/24 10:31 150/88 H 04/08/24 10:30 58 L 18 95 04/08/24 10:27 146/73 H 04/08/24 10:21 36.8 C 61 18 146/73 H 94 04/08/24 10:12 92 Pulse Ox O2 Del Method O2 Del Method 04/08/24 14:33 04/08/24 14:30 04/08/24 14:30 04/08/24 14:18 04/08/24 14:00 Room Air 04/08/24 13:45 04/08/24 13:21 04/08/24 13:16 93 Room Air 04/08/24 13:00 04/08/24 13:00 04/08/24 13:00 04/08/24 12:57 04/08/24 12:54 04/08/24 12:28 04/08/24 12:28 Room Air 04/08/24 12:00 04/08/24 12:00 04/08/24 12:00 04/08/24 12:00 Room Air 04/08/24 11:57 04/08/24 11:51 04/08/24 11:45 04/08/24 11:45 Room Air 04/08/24 11:30 04/08/24 11:30 04/08/24 11:30 04/08/24 11:30 Room Air 04/08/24 11:24 04/08/24 11:15 Room Air 04/08/24 11:10 04/08/24 11:09 04/08/24 11:03 04/08/24 11:00 04/08/24 11:00 04/08/24 11:00 04/08/24 10:56 04/08/24 10:51 04/08/24 10:43 04/08/24 10:31 04/08/24 10:30 04/08/24 10:27 04/08/24 10:21 Room Air 04/08/24 10:12 Room Air Lab & Micro Results (Past 24 Hours) RBC 4.46 M/uL (4.70-6.10) L 04/08/24 WBC 4.70 K/ul (4.8-10.8) L 04/08/24 Hgb 15.2 g/dl (14.0-18.0) 04/08/24 Hct 43.1 % (42.0-52.0) 04/08/24 MCV 96.6 fL (80.0-100.0) 04/08/24 MCH 34.1 pg (25.0-34.0) H 04/08/24 MCHC 35.3 g/dL (32.0-36.0) 04/08/24 RDW Standard Deviation 46.3 fL (36.4-46.3) 04/08/24 RDW Coefficient of Variation 12.8 % (11.5-14.5) 04/08/24 Plt Count 154 K/uL (130-400) 04/08/24 MPV 9.3 fL (9.4-12.4) L 04/08/24 Neutrophils (%) (Auto) 63.4 % 04/08/24 Lymphocytes (%) (Auto) 22.8 % 04/08/24 Monocytes # (Auto) 0.54 K/uL (0.11-0.59) 04/08/24 Eosinophils # (Auto) 0.07 K/uL (0.00-0.50) 04/08/24 Immature Granulocyte % (Auto) 0.2 % 04/08/24 Neutrophils # (Auto) 2.98 K/uL (1.40-6.50) 04/08/24 Lymphocytes # (Auto) 1.07 K/uL (1.20-3.40) L 04/08/24 Monocytes # (Auto) 0.54 K/uL (0.11-0.59) 04/08/24 Eosinophils # (Auto) 0.07 K/uL (0.00-0.50) 04/08/24 Basophils # (Auto) 0.03 K/uL (0.00-0.20) 04/08/24 Immature Granulocyte # (Auto) 0.01 K/uL (0.01-0.20) 4 Na 134 mmol/L (136-145) L 04/08/24 K 3.8 mmol/L (3.5-5.1) 04/08/24 Cl 102 mmol/L (98-107) 04/08/24 CO2 29 mmol/L (21-32) 04/08/24 Anion Gap 3 (3-11) 04/08/24 BUN 28 mg/dl (6-23) H 04/08/24 Creatinine 1.10 mg/dl (0.6-1.4) 04/08/24 Estimated GFR ( Amer) 71.6 ml/min 04/08/24 Estimated GFR (Non-Af Amer) 61.8 ml/min 04/08/24 BUN/Creatinine Ratio 25.5 (10-20) H 04/08/24 Glu 155 mg/dl (70-99(Fasting)) H 04/08/24 Ca 8.5 mg/dl (8.6-10.3) L 04/08/24 Total Bilirubin 1.5 mg/dl (0.2-1.0) H 04/08/24 AST 15 U/L (13-39) 04/08/24 ALT 16 U/L (7-52) 04/08/24 Alkaline Phosphatase 50 U/L (34-104) 04/08/24 TP 5.9 gm/dl (6.0-8.3) L 04/08/24 Albumin 3.6 gm/dl (3.4-5.0) 04/08/24 Globulin 2.3 gm/dl (2.5-4.0) L 04/08/24 Albumin/Globulin Ratio 1.6 (0.9-2) 04/08/24 Mg 1.9 mg/dl (1.7-2.4) 04/08/24 10:28 Calcium Level 8.5 mg/dl (8.6-10.3) L 04/08/24 10:28 Prothromb Time International Ratio 1.1 (0.9-1.1) 04/08/24 10:2 8 Diagnostic Findings (Past 24 Hours) Head CT 04/08/24 10:10 CT SCAN OF THE BRAIN WITHOUT IV CONTRAST CLINICAL HISTORY: Neurological deficit. Stroke like symptoms. COMPARISON STUDY: No priors. TECHNIQUE: Unenhanced axial CT scan of the brain is performed from the vertex to the skull base. A dose lowering technique was utilized adhering to the principles of ALARA. FINDINGS: Brain parenchyma: There is age-related involutional change noting mild subcortical and periventricular microangiopathic disease. There is no hemorrhage, mass effect, or evidence of acute territorial ischemia by CT criteria. Colilns-white matter differentiation is preserved. No extra-axial fluid collection is seen. Ventricles, sulci, cisterns: Prominent secondary to involutional change. Intracranial vasculature: There is atherosclerotic calcification of the cavernous carotid and vertebral arteries. Calvarium: Unremarkable. Sinuses and mastoids: The visualized paranasal sinuses are clear. The mastoid air cells are well pneumatized. Orbits: The bony orbits are grossly intact. There are bilateral ocular lens implants. IMPRESSION: There is no hemorrhage, mass effect, or evidence of acute territorial ischemia by CT criteria. ACT 112: Negative or not required by law. Electronically signed by: Khurram Hussein M.D. 04/08/2024 10:34 AM Head CTA 04/08/24 10:10 CT angio head w con CLINICAL HISTORY: 83 years-old Male with neuro deficit, acute stroke suspected. Acute stroke like symptoms COMPARISON STUDY: Head CT of same day TECHNIQUE: Following the IV administration of 112 cc of Optiray, CT angiogram of the brain was performed from the skull base to the vertex. Images are reviewed in the axial, sagittal, and coronal planes. 3-D MIPS images are created and as sessed. IV contrast was administered without complication. All measurements were obtained according to NASCET criteria. A dose lowering technique was utilized adhering to the principles of ALARA. FINDINGS: CT ANGIOGRAM OF THE BRAIN: The imaged bilateral internal carotid arteries are patent. The bilateral anterior and middle cerebral arteries are also patent. The vertebrobasilar system and posterior cerebral arteries are widely patent. There is no aneurysm, high-grade stenosis, or proximal branch occlusion identified. Dural sinuses appear patent. IMPRESSION: Unremarkable CTA of the head. ACT 112: Negative or not required by law. The above report was generated using voice recognition software. It may contain grammatical, syntax or spelling errors. Electronically signed by: Mauro Brandon M.D. 04/08/2024 10:56 AM Neck CTA 04/08/24 10:10 CT ANGIOGRAM OF THE NECK CLINICAL HISTORY: Neurological deficit. Stroke like symptoms. COMPARISON STUDY: No priors. TECHNIQUE: Following the IV administration of 112 of Optiray 320, CT angiogram of the neck was performed from the aortic arch to the skull base. Images are reviewed in the axial, sagittal, and coronal planes. 3-D MIPS images are created and assessed. IV contrast was administered without complication. All measurements were calculated based on NASCET criteria. A dose lowering technique was utilized adhering to the principles of ALARA. CT DOSE: 1317.28 mGy.cm FINDINGS: Thoracic aorta: There is atherosclerotic calcification of the thoracic aorta. Visualized portions of the thoracic aorta are normal in caliber. The aortic arch demonstrates standard 3-vessel anatomy. Right carotid arterial system: The right common carotid artery is widely patent, as are the right internal and external carotid arteries. Calcified plaque is seen in the carotid bulb. Left carotid arterial system: The left common carotid artery is widely patent, as are the left internal and external carotid arteries. Mild calcified plaque is noted in the carotid bulb. Vertebral arteries: The vertebral arteries are widely patent bilaterally and codominant. Subclavian arteries: Widely patent bilaterally. Intracranial vasculature: The visualized intracranial vessels at the skull base are patent. Jugular veins: Widely patent bilaterally. Brain parenchyma: The visualized brain parenchyma the skull base is within normal limits. Lung apices: Partially visualized upper lobe lung parenchyma appears clear. Soft tissues: The visualized pharyngeal soft tissues are normal in appearance noting angiographic phase technique. The oropharyngeal airway appears widely patent. The salivary and thyroid glands are normal in appearance. No cervical lymphadenopathy is seen. Skeletal structures: The skeletal structures are osteopenic. The visualized calvarium at the skull base appears intact. The imaged cervical spine is maintained noting multilevel spondylosis. Sinuses and mastoids: The visualized paranasal sinuses are clear. The mastoid air cells are well pneumatized. Cerumen is noted in the left external auditory canal. IMPRESSION: Unremarkable CT angiogram of the neck. ACT 112: Negative or not required by law. Electronically signed by: Khurram Hussein M.D. 04/08/2024 10:37 AM Brain MRI 04/08/24 11:38 MRI OF THE BRAIN WITHOUT CONTRAST CLINICAL HISTORY: Left facial droop extremity weak + garbled speech COMPARISON STUDY: Head CT and CT of the head April 08, 2024. TECHNIQUE: Utilizing a 1.5 Greer magnet and dedicated coil, multiplanar, multiecho imaging of the brain was performed without IV contrast. FINDINGS: There are several foci of restricted diffusion within the right basal ganglia which measure up to 1.5 cm. These are hypointense on the ADC map. There may be minimal associated FLAIR signal abnormality. There is no corresponding T2 hyperintensity on the T2-weighted sequences. A few additional small foci of restricted diffusion within the right cerebral hemisphere also favor small acute infarct. There is no evidence for hemorrhagic conversion. There is no mass effect. Ventricular system is unremarkable. Basal cisterns are patent. There are no extra-axial collections. White matter T2 hyperintense foci suggest small vessel disease. IMPRESSION: 1. Several acute infarcts within the right basal ganglia which measure up to 1.5 cm. A few additional punctate foci of restricted diffusion within the right cerebral hemisphere suggestive of an additional acute infarcts. The findings raise the possibility of an embolic etiology. 2. No intracranial hemorrhage. No mass effect. ACT 112: Negative or not required by law. Electronically signed by: Nestor Medrano M.D. 04/08/2024 2:43 PM I & O Totals 24 Hours 04/07/24 04/08/24 04/09/24 06:59 06:59 06:59 Intake Total 365 / 365 Output Total 800 / 800 Balance -435 / -435 Cumulative 04/08/24 10:04 thru 04/08/24 14:47 Intake Total 365 Output Total 800 Balance -435 RT Ventilator Mngmt (Last Documented) Ventilator Ordered Settings Respiratory Rate 19 04/08/24 14:33 Ventilator - PT Measurements Respiratory Rate 19 Coding Level of Care Code 92923 IN/OBS CONSULT LVL 5,80M Diagnoses CVA (cerebral vascular accident) I63.9 HTN (hypertension) I10 Hyperlipidemia E78.5
--- NOTE | 2024-04-08 17:57 | XCELERA ---
[id number]
[2024-04-08] MEDS: LACTATED RINGER'S 1,000 ML IV SCH (18:00)
--- OUTSIDE RECORDS SUMMARY | 2024-04-08 20:49 | External Medical Summary | Continuity of Care Document ---
Author Name Unknown Organization [facility] [address] Address [address] [place], [place] [id number] Care Team Providers Care Rail Crew Member Name Role Phone Karyn Edwards Primary Care Physician [phone] Encounter [facility] [id number] Date(s): 12/09/23 - 12/09/23 [facility] [address] [facility] [address] [facility] 1 [place], [place] [phone] Encounter Diagnosis Essential (primary) hypertension(Final) - Hyperlipidemia, unspecified(Final) - Discharge Disposition: Home or Self Care Attending Physician: Zan Carroll DO, Mariana Annette Referring Physician: Zan Carroll DO, Mariana Annette Allergies, Adverse Reactions, Alerts Substance Criticality Severity Reaction Reaction Severity Status oxyCODONE hypotension from percocet Active Immunizations Given and Recorded Vaccine Date Status Refusal Reason SARS COVID Vaccine Unspecified 05/27/23 Recorded influenza virus vaccine, inactivated 03/25/23 Ced rded influenza virus vaccine, inactivated 04/03/21 Ced rded influenza virus vaccine, inactivated 04/07/18 Ced rded zoster vaccine, inactivated 02/13/22 Given pneumococcal 23-valent vaccine 06/02/19 Given pneumococcal 13-valent vaccine 01/25/15 Recorded diphtheria/tetanus/pertuss, acel (DTaP) 06/15/13 R ecorded Medications amLODIPine 10 mg oral tablet Start: 10/10/23 2:59:00 PM EDT, See Instructions, Disp# 90 tab, Refills: 0, TAKE 1 TABLET DAILY, Pharmacy: [facility]/pharmacy #[id number] Start Date: 10/10/23 Status: Ordered celecoxib 200 mg oral capsule Start: 06/12/23 10:55:00 AM EST, 1 cap, PO, Daily, Disp# 90 cap, Refills: 1, TAKE 1 CAPSULE BY MOUTHONCE NEEDED FOR PAIN, Pharmacy: [facility]/pharmacy #[id number] Start Date: 06/12/23 Status: Ordered Debrox 6.5% otic solution Start: 02/13/22 4:48:00 PM EDT, 5 drop, both ears, tid, Disp# 30 mL, Pharmacy: [facility]/pharmacy #[id number] Start Date: 02/13/22 Status: Ordered latanoprost 0.005% ophthalmic emulsion Start: 11/08/23 12:27:00 PM EDT, 0 Refill(s) Start Date: 11/08/23 Status: Ordered lisinopril 40 mg oral tablet Start: 04/29/23 12:52:00 PM EDT, 1 tab, PO, Daily, Disp# 90 tab, Refills: 3, Pharmacy: [facility] [id number] Start Date: 04/29/23 Status: Ordered multivitamin Start: 01/27/18 10:49:00 AM EDT, 1 tab, PO, Daily Start Date: 01/27/18 Status: Ordered Myrbetriq 50 mg oral tablet, extended release Start: 01/21/23 11:46:00 AM EDT, 90 tab Start Date: 01/21/23 Status: Ordered rosuvastatin 10 mg oral tablet Start: 05/10/23 1:06:00 PM EDT, See Instructions, Disp# 90 tab, Refills: 0, TAKE 1 TABLET AT BEDTIME, Pharmacy: [facility] Start Date: 05/10/23 Status: Ordered tamsulosin 0.4 mg oral capsule Start: 04/17/22 11:26:00 AM EDT, 1 cap, PO, Daily, Disp# 90 cap, Refills: 3, Pharmacy: [facility] Start Date: 04/17/22 Stop Date: 04/12/23 Status: Ordered Timolol Maleate (Eqv-Timoptic) 0.5% ophthalmic solution Start: 11/08/23 12:27:00 PM EDT, 0 Refill(s) Start Date: 11/08/23 Status: Ordered timolol maleate 0.5% ophthalmic solution Start: 05/29/23 4:55:00 PM EST, 5 mL, PLACE 1 DROP INTO LEFT EYE EVERY MORNING Start Date: 05/29/23 Status: Ordered Problem List Condition Confirmation Course Effective Dates Status H ealth Status Informant Acute allergic rhinitis Confirmed Active Lumbar facet arthropathy Confirmed Active H/O total knee replacement Confirmed Active Benign essential HTN Confirmed Active BPH (benign prostatic hyperplasia) Confirmed Active Congenital renal cyst Confirmed Active GOA (generalized osteoarthritis) Confirmed Active Gilbert's syndrome Confirmed Active Borderline hyperlipidemia Confirmed Active Impacted cerumen, bilateral Confirmed Active ED (erectile dysfunction) Confirmed Active Infectious colitis Confirmed Active Ingrown right big toenail Confirmed Active Irregular heartbeat Confirmed Active OA (osteoarthritis) of knee Confirmed Active Toe pain, right Confirmed Active Wrist pain, right Confirmed Active Skin lesion Confirmed Active Procedures Procedure Date Related Diagnosis Body Site Status MRI of lumbar spine 1 01/17/22 Com pleted X-ray of lumbar spine 2 11/08/21 C ompleted Hernia repair 09/2021 Completed Ultrasound 3 03/23/21 Completed Right knee 4 03/19/20 Completed Colonoscopy 5, 6, 7 01/01/[address] of abdomen and pelvis 8 08/05/19 Completed 2D mode ultrasound - Testicu lar ultrasound 9 Completed Arthroscopy Completed Bilateral extraction of cataracts Completed Cholecystectomy Completed Elbow 10 Completed History of bilateral hip replacement Completed History of hernia repair Completed History of left total knee replacement Completed Partial shoulder replacement 11 Completed Total shoulder replacement Completed 1Multilevel degenerative changes are seen with up to severe neuroforaminal stenosis, AP diameter 6 mm and severe bilateral neuroforaminal stenosis. 2No fractures within the lumbar spine. Moderate to severe degenerative changes as described above. 3US abdomen ltd hernia Impression: Small fat filled left inguinal hernia 4replacement 5COLO to TI, small TC erosion bx, cecal erosions bx, AC ulcer bx, hemorrhoids 6single left colon diverticulum 7path - transverse colon w/ reactive epith. change, suggestive of erosion; cecal colon mild reactivechanges; ascending colon reactive epith change, focal minimal acute inflammation 8[facility] [place] [place] Impression: 1. Severe colon wall thickening and inflammation involving the ascending colon. The findings are consistent with colitis 2. High density nodule in the left kidney suspected to represent a high-density cyst. Correlation with any previous CT scans would be beneficial. If no old studies are available for comparison, a 6 month follow up abdomen [address] without contast is recommended 3. Tiny bilateral renal stones 4. Sigmoiddiverticulosis 9Impression: Minimal bilateral hydrocele. Normal testicular blood flow is seen bilaterally. Cysteic appearance of the right epididymis. 10elbow surgery 11right Results Laboratory List Name Date Basic Metabolic Panel (BASIC METAB PANEL ) 12/09/23 Lipid Profile (LIPOPROTEINS) 12/09/23 Most recent to oldest [Reference Range]: 1 eGFR CKD-EPI [>60 mL/min/1.73 m2] 65 mL/ min/1.73 m2 1 (12/09/23 7:47 AM) Non-HDL 55 mg/dL 2 (12/09/23 7:47 AM) Estimated CrCl 53.33 mL/min (12/09/23 8:12 AM) Anion Gap [5-14 mmol/L] 7 mmol/L (12/09/23 7:47 AM) BUN [7-20 mg/dL] 29 mg/dL *HI* (12/09/23 7:47 AM) Ca [8.4-10.2 mg/dL] 8.8 mg/dL (12/09/23 7:47 AM) Chol/HDL 2 (12/09/23 7:47 AM) Chol [125-200 mg/dL] 140 mg/dL (12/09/23 7:47 AM) Cl- [96-107 mmol/L] 105 mmol/L (12/09/23 7:47 AM) HCO3 [22-30 mmol/L] 28 mmol/L (12/09/23 7:47 AM) Cret [0.70-1.30 mg/dL] 1.12 mg/dL (12/09/23 7:47 AM) Glu [74-106 mg/dL] 103 mg/dL (12/09/23 7:47 AM) HDL [>35 mg/dL] 85 mg/dL (12/09/23 7:47 AM) K [3.5-5.1 mmol/L] 4.4 mmol/L (12/09/23 7:47 AM) LDL Chol, Calculated [50-130 mg/dL] 43 m g/dL *LOW* (12/09/23 7:47 AM) Na [137-145 mmol/L] 140 mmol/L (12/09/23 7:47 AM) TG [<200 mg/dL] 62 mg/dL (12/09/23 7:47 AM) 1Result Comment: Testing Performed By: Dept of Pathology [facility] [address], [address] [place] [address] 2Result Comment: Testing Performed By: Dept of Pathology [facility] [address], [address] [place] [address] Social History Social History Type Response Smoking Status Never smoked cigaret donna Sex Male Patient Care team information Care Team Personnel Name: MD Jerry, Karyn Grigsby Position: Physician Member Role: Primary Care Provider Address: Address: [address] [place] [address], [place] [address] [place] Care Team Related Persons Name: ABUNDIO MURPHY Address: home [address] [facility] [id number] Name: JUDAH MURPHY Name: JUDAH MURPHY Name: JUDAH MURPHY Name: ERUM MURPHY Address: home [address] [facility], [place] [id number]
--- OUTSIDE RECORDS SUMMARY | 2024-04-08 20:49 | External Medical Summary | Continuity of Care Document ---
Author Name Unknown Organization [address] Address [address] [place] [phone] Care Team Providers Care Site Manager Name Role Phone Karyn Edwards Primary Care Physician [phone] [id number] Date(s): 11/12/23 - 11/12/23 [facility] [address] [place] [id number] [facility] [address] [place], [place] [id number] Encounter Diagnosis Ingrown right big toenail(Discharge Diagnosis) - 11/12/23 Toe pain, right(Discharge Diagnosis) - 11/12/23 Discharge Disposition: Home or Self Care Attending Physician: LIZA Eaton Christina L Referring Physician: MD Edwards Ravishankar E Allergies, Adverse Reactions, Alerts Substance Reaction Severity Status oxyCODONE hypotension from percocet Active Assessment and Plan Extracted from: Title:Orthopaedics Office Visit Note Author:Alia Solis DPM, Christina L Date:11/12/23 1.Ingrown right big toenai l Right hallux lateral nail border partial nail avulsion with phenol - Consent obtained and reviewed with the patient, for removal of toenail. Area was cleaned with alcohol, injection of6 mL of 1% lidocaine plain injection in a ring block. Once anesthesia of the obtained, toe was cleaned with Hibiclens. Right hallux lateral aspect of the toenail was avulsed using nail nipper, curved hemostat and freer elevator; phenol then applied. Tourniquet used for bleeding, post removal of nail, toe had good hemodynamic response noted. Dressings were applied with triple antibiotic and gauze/coban to comfort. Patient was given post op instructions which were reviewed with the patient. - Post op care includes to remove the dressings in the evening, thoroughly wash with warm, soapy water daily, and please refrain from soaking the toe. It is common to have redness and drainage for several days. Please apply an antimicrobial agent and Band-Aid daily over the area. Please f/u in 1 week. Weight bearing and activity restrictions are based on the pain level. Please elevate, limit activity, ice the foot. Nonsteroidal anti-inflammatory medications are adequate for pain management. - Patient instructed to f/u in 1 week for evaluation 2.Toe pain, right Immunizations Given and Recorded Vaccine Date Status [...] amLODIPine 10 mg oral tablet Start: 10/10/23 14:59:00 EDT, See Instructions, Disp# 90 tab, Refills: 0, TAKE 1 TABLET DAILY, Pharmacy: [id number] Start Date: 10/10/23 Status: Ordered celecoxib 200 mg oral capsule Start: 06/12/23 10:55:00 EST, 1 cap, PO, Daily, Disp# 90 cap, Refills: 1, TAKE 1 CAPSULE BY MOUTH ONCE NEEDED FOR PAIN, Pharmacy: [id number] Start Date: 06/12/23 Status: Ordered Debrox 6.5% otic solution Start: 02/13/22 16:48:00 EDT, 5 drop, both ears, tid, Disp# 30 mL, Pharmacy: [id number] Start Date: 02/13/22 Status: Ordered latanoprost 0.005% ophthalmic emulsion Start: 11/08/23 12:27:00 EDT, 0 Refill(s) Start Date: 11/08/23 Status: Ordered lisinopril 40 mg oral tablet Start: 04/29/23 12:52:00 EDT, 1 tab, PO, Daily, Disp# 90 tab, Refills: 3, Pharmacy: [id number] Start Date: 04/29/23 Status: Ordered multivitamin Start: 01/27/18 10:49:00 EDT, 1 tab, PO, Daily Start Date: 01/27/18 Status: Ordered Myrbetriq 50 mg oral tablet, extended release Start: 01/21/23 11:46:00 EDT, 90 tab Start Date: 01/21/23 Status: Ordered rosuvastatin 10 mg oral tablet Start: 05/10/23 13:06:00 EDT, See Instructions, Disp# 90 tab, Refills: 0, TAKE 1 TABLET AT BEDTIME,Pharmacy: [facility] Start Date: 05/10/23 Status: Ordered tamsulosin 0.4 mg oral capsule Start: 04/17/22 11:26:00 EDT, 1 cap, PO, Daily, Disp# 90 cap, Refills: 3, Pharmacy: [facility] Start Date: 04/17/22 Stop Date: 04/12/23 Status: Ordered Timolol Maleate (Eqv-Timoptic) 0.5% ophthalmic solution Start: 11/08/23 12:27:00 EDT, 0 Refill(s) Start Date: 11/08/23 Status: Ordered timolol maleate 0.5% ophthalmic solution Start: 05/29/23 16:55:00 EST, 5 mL, PLACE 1 DROP INTO LEFT EYE EVERY MORNING Start Date: 05/29/23 Status: Ordered Mental Status 11/12/23 Barriers to Learning one year None evide nt Mandatory Health Literacy Documentation Yes Health Literacy Communication Barriers N ever Primary Language Moldovan Problem List Condition Confirmation Course Effective Dates [...] right Confirmed Active Skin lesion Confirmed Active Diagnosis Diagnosis Type Effective Dates Health Status Cl inical Service Informant Ingrown right big toenail Discharge Diagnosis 11/12/23 Toe pain, right Discharge Diagnosis 11/12/23 Procedures Procedure Date Related Diagnosis Body Site [...] of the right epididymis. 10elbow surgery 11right Social History Social History Type Response Smoking Status Never smoked cigaret donna Sex Male Ortho Outpt Note * LIZA Eaton, Erin Dorantes: PERFORM Event Display: Ortho Outpt Note Authored Date: [id number] Primary Care Provider MD Jerry, Karyn Grigsby Chief Complaint right great toenail, lateral side. ingrown. fungus. History of Present Illness Patient is a very pleasant 83-year-old male presenting today dieudonne acute evaluation of a right hallux lateral nail border ingrown toenail and pain. [facility]. Past medical historyhypertension hyperlipidemia BPH. Surgical historyarthroscopy total shoulder elbow. Medicationsreviewed. Allergiesreviewed. Social historydenies smoking positive for alcohol use. Family historycancer heart disease hypertension stroke and valvular disease Review of Systems No pertinent positives Physical Exam Problem focused right foot: Dorsalis pedis pulse palpable 1 out of 4, posterior tibial pulse palpable 1 out of 4, capillary refill time less than 3 seconds,skin turgor is good to all digits of the right foot pedal hair is present. Neurovascular status grossly intact all digits of the right foot. Right hallux lateral nail bordertoenail is incurvated and painful recommend partial nail avulsion with phenol Assessment/Plan 1.Ingrown right big toenail Right hallux lateral nail border partial nail avulsion with phenol - Consent obtained and reviewed with the patient, for removal of toenail. Area was cleaned with alcohol, injection of6 mL of 1% lidocaine plain injection in a ring block. Once anesthesia of the obtained, toe was cleaned with Hibiclens. Right hallux lateral aspect of the toenail was avulsed using nail nipper, curved hemostat and freer elevator; phenol then applied. Tourniquet used for bleeding, post removal of nail, toe had good hemodynamic response noted. Dressings were applied with tripleantibiotic and gauze/coban to comfort. Patient was given post op instructions which were reviewed with the patient. - Post op care includes to remove the dressings in the evening, thoroughly wash with warm, soapy water daily, and please refrain from soaking the toe. It is common to have redness and drainage for several days. Please apply an antimicrobial agent and Band-Aid daily over the area. Please f/u in 1 week. Weight bearing and activity restrictions are based on the pain level. Please elevate, limit activity, ice the foot. Nonsteroidal anti-inflammatory medications are adequate for pain management. 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 Impacted cerumen, bilateral Infectious colitis Ingrown right big toenail Irregular heartbeat Lumbar facet arthropathy OA (osteoarthritis) of knee Skin lesion Toe pain, right Wrist pain, right Historical Achilles tendinitis, right leg Procedure/Surgical History MRI of lumbar spine| Service Date: 01/17/2022X-ray of lumbar spine| Service Date: 11/08/2021Hernia repair| Service Date: 09/2021Ultrasound| Service Date: 1Right knee| Service Date: 03/19/2020Colonoscopy| Service Date: 01/01/2020CT of abdomen and pelvis| Service Date: Bilateral extraction of cataractsHistory of bilateral hip replacementHistory of left total knee replacementPartial shoulder replacementCholecystectomyHistory of hernia [id number] mode ultrasound - Testicular ultrasoundTotal shoulder replacementArthroscopyElbow Medications amLODIPine(amLODIPine 10 mg oral tablet), See Instructions carbamide peroxide otic(Debrox 6.5% otic solution), 5 drop, both ears, tid celecoxib(celecoxib 200 mg oral capsule), 200 mg= 1 cap, PO, Daily, 1 refills latanoprost ophthalmic(latanoprost 0.005% ophthalmic emulsion) lisinopril(lisinopril 40 mg oral tablet), 1 tab, PO, Daily mirabegron(Myrbetriq 50 mg oral tablet, extended release) multivitamin, 1 tab, PO, Daily rosuvastatin(rosuvastatin 10 mg oral tablet), See Instructions tamSULOsin(tamsulosin 0.4 mg oral capsule), 0.4 mg= 1 cap, PO, Daily, 3 refills timolol ophthalmic(timolol maleate 0.5% ophthalmic solution) timolol ophthalmic(Timolol Maleate (Eqv-Timoptic) 0.5% ophthalmic solution) Allergies oxyCODONEhypotension, from percet Social History Smoking Status Never smoked cigarettes Alcohol Type:Beer, Wine, Liquor Frequency:Daily Exercise Duration (average number of minutes):45 Times per week:1-2 times/week Exercise type:Weight lifting, cardio, sit ups, back stretching. - Comments: golfing Sexual Sexually active:Yes Self described orientation:Heterosexual Tobacco - Denies Tobacco Use Family History Cancer: Mother. Heart disease: Mother. Hypertension: Father. Stroke: Brother.Negative: Sister. Valvular heart disease...: Father. Health Status Family Member(s) Family Member(s) Relationship: Mother, Age: Unknown Immunizations Vaccine Date Status SARS COVID Vaccine Unspecified 05/27/2023 Recorded influenza virus vaccine, inactivated 03/25/2023 Recorded zoster vaccine, inactivated 02/13/2022 Given influenza virus vaccine, inactivated 04/03/2021 Recorded pneumococcal 23-valent vaccine 06/02/2019 Given influenza virus vaccine, inactivated 04/2018 Recorded pneumococcal 13-valent vaccine 01/25/2015 Recorded diphtheria/tetanus/pertuss, acel (DTaP) 06/15/2013 Recorded Recommendations Health Maintenance Pending(in the next year) OverDue Medicare Annual Wellness Visit due04/03/22and every 1year Due Adult COVID-19 Vaccination due11/12/23Unknown Frequency Adult Social Determinants of Health Screening due11/12/23Unknown Frequency Adult Tdap/Td Vaccine due11/12/23Unknown Frequency Shingles Vaccine due11/12/23One-time only Due In Future Adult Influenza Vaccine not due until01/05/24and every 1year Body Mass Index not due until06/21/24and every 366day Satisfied(in the past 1 year) Satisfied Adult Influenza Vaccine on03/25/23.Satisfied by YADIRA Sharif Angela Body Mass Index on06/21/23.Satisfied by STACI Winston Lori Electronic Signature on File Electronically Reviewed/Signed by: Erin Eaton DPM Author Signature Dt/Tm:11/12/2023 10:47 AM Division of Sports Medicine CLR Patient Care team information Care Team Personnel Name: MD Jerry, Karyn Grigsby Position: Physician Member Role: Primary Care Provider Address: Address: [address] [place] [address], [place] [address] [place] Care Team Related Persons Name: ABUNDIO MURPHY Address: home [address] [facility] [id number] Name: JUDAH MURPHY Name: JUDAH MURPHY Name: JUDAH MURPHY Name: ERUM MURPHY Address: home [address] [place], [place] [id number]"
--- OUTSIDE RECORDS SUMMARY | 2024-04-08 20:49 | External Medical Summary | Continuity of Care Document ---
Author Name Unknown Organization [address] Address [address] [place] [phone] Care Team Providers Care Manager Rn Name Role Phone Karyn Edwards Primary Care Physician [phone] [id number] Date(s): 12/25/23 - 12/25/[address] G[place] [address], [address] [address] [phone] Encounter Diagnosis Benign essential HTN(Discharge Diagnosis) - 12/25/23 Borderline hyperlipidemia(Discharge Diagnosis) - 12/25/23 BPH (benign prostatic hyperplasia)(Discharge Diagnosis) - 12/25/23 Body mass index [BMI] 27.0-27.9, adult(Discharge Diagnosis) - 12/25/23 GOA (generalized osteoarthritis)(Discharge Diagnosis) - 12/25/23 Discharge Disposition: Home or Self Care Attending Physician: MD Edwards Ravishankar E Referring Physician: MD Edwards Ravishankar E Allergies, Adverse Reactions, Alerts Substance Criticality Severity Reaction Reaction Severity Status oxyCODONE hypotension from percocet Active Assessment and Plan Extracted from: Title:Office Visit Note Author:MD Edwards Ravishan kar E Date:12/25/23 1.Benign essential HTN - Well controlled on current regimen, continue as prescribed - BMP reviewed, repeat annually 2.Borderline hyperlipidemia - Well controlled on current statin regimen, continue as prescribed - FLP reviewed with pt, repeat every 1-2 years 3.BPH (benign prostatic hyperplasia) - Stable/chronic, controlled medically and followed by urology 4.GOA (generalized osteoarthritis) - Continue celebrexper ortho, labs reviewed and wnl, tolerating well clinically with good response to therapy - Discussed avoiding excessive alcohol, concurrent NSAID use, etc f/u PRN or i5ogakeb. Time: 40mins 5 - pre-visit chart review 30 - visit, inclusive of history, exam, and discussion of assessment/plan 5 - post-visit documentation/orders/coordination of care Immunizations Given and Recorded Vaccine Date Status [...] Medications amLODIPine 10 mg oral tablet Start: 12/25/23 10:10:00 AM EDT, See Instructions, Disp# 90 tab, Refills: 3, TAKE 1 TABLET DAILY, Pharmacy: [facility]/pharmacy #[id number] Start Date: 12/25/23 Status: Ordered celecoxib 200 mg oral capsule Start: 12/17/23 2:46:00 PM EDT, 1 cap, PO, Daily, Disp# 90 cap, Refills: 1, TAKE 1 CAPSULE BY MOUTH ONCE NEEDED FOR PAIN, Pharmacy: [facility]/pharmacy #[id number] Start Date: 12/17/23 Status: Ordered lisinopril 40 mg oral tablet Start: 12/25/23 10:10:00 AM EDT, 1 tab, PO, Daily, Disp# 90 tab, Refills: 3, Pharmacy: [facility]/pharmacy #[id number] Start Date: 12/25/23 Status: Ordered multivitamin Start: 01/27/18 10:49:00 AM EDT, 1 tab, PO, Daily Start Date: 01/27/18 Status: Ordered Myrbetriq 50 mg oral tablet, extended release Start: 01/21/23 11:46:00 AM EDT, 90 tab Start Date: 01/21/23 Status: Ordered rosuvastatin 10 mg oral tablet Start: 12/25/23 10:10:00 AM EDT, See Instructions, Disp# 90 tab, Refills: 3, TAKE 1 TABLET AT BEDTIME, Pharmacy: [facility]/pharmacy #[id number] Start Date: 12/25/23 Status: Ordered tamsulosin 0.4 mg oral capsule Start: 04/17/22 11:26:00 AM EDT, 1 cap, PO, Daily, Disp# 90 cap, Refills: 3, Pharmacy: [facility] Start Date: 04/17/22 Stop Date: 04/12/23 Status: Ordered Mental Status 12/25/23 Barriers to Learning one year None evide nt Mandatory Health Literacy Documentation Yes Health Literacy Communication Barriers N ever Primary Language [place] Problem List Condition Confirmation Course Effective Dates [...] Diagnosis Diagnosis Type Effective Dates Health Status Clinical Service Informant Borderline hyperlipidemia Discharge Diagnosis 12/25/23 Non-Specified Body mass index [BMI] 27.0-27.9, adult Discharge Diagnosis 12/25/23 Non-Specified GOA (generalized osteoarthritis) Discharge Diagnosis 12/25/23 Non-Specified Benign essential HTN Discharge Diagnosis 12/25/23 Non-Specified BPH (benign prostatic hyperplasia) Discharge Diagnosis 12/25/23 Non-Specified Procedures Procedure Date Related Diagnosis Body Site [...] of the right epididymis. 10elbow surgery 11right Vital Signs Most recent to oldest [Reference Range]: 1 Height 179 cm (12/25/23 9:57 AM) Patient Weight 88.6 kg (12/25/23 9:57 AM) Body Mass Index 27.65 kg/m2 (12/25/23 9:57 AM) Temperature [36.5-37.9 DegC] 36.5 DegC (12/25/23 9:57 AM) Heart Rate 53 bpm (12/25/23 9:57 AM) Respiratory Rate 16 br/min (12/25/23 9:57 AM) Blood Pressure 102/60mmHg (12/25/23 9:57 AM) Cuff Pulse Pressure 42 mmHg (12/25/23 9:57 AM) Social History Social History Type Response Smoking Status Never smoked cigaret donna Sex Male FCM Outpt Note * MD Jerry, Karyn Grigsby: PERFORM Event Display: FCM Outpt Note Authored Date: [id number] Chief Complaint 6 month follow up-review recent labs History of Present Illness Margarita is an 83yoM here today for f/u of chronic conditions 6m from prior visit with Dr. Zan pabon. Hypertension has been stable/well controlled. Denies any side effects on current regimen including headaches, vision changes, CP, or shortness of breath. On lisinopril 40mg daily and amlodipine 10mg daily. BMP stable and reviewed from 12/2023 on this regimen. Hyperlipidemia managed on fseopuz96oy daily, lipid profile updated 12/2023 and with good control on this regimen. BPH followed by urology on flomax/myrbetriqwith good control. Following with Dr. José for injections for back pain and has diffuse arthritis -- all symptoms at bay on the celebrex.He's using 200mg daily for a while since winter and wanted to confirm labs are showing he's tolerating this. Continues to golf regularly and feels good overall. Review of Systems 04/20pt ROS reviewed/negative except as noted in HPI. Physical Exam Vitals & Measurements T:36.5C HR:53(Monitored) RR:16 BP:102/60 SpO2:94% HT:179cm WT:88.600kg(Dosing) WT:88.6kg BMI:27.65 PHQ2 Data(Data Documented on:12/25/2023 09:57) Emotional health assessment NEGATIVE GENERAL APPEARANCE: The patient is alert, oriented and in no acute distress. VITALS: As above. HEENT: Head is normocephalic/atraumatic. CARDIOVASCULAR: +2 radialpulses. LUNGS: Respirations even and unlabored. EXTREMITIES: No cyanosis, clubbing or edema. NEUROLOGICAL: Grossly non-focal exam. SKIN: Warm and dry without any rash Assessment/Plan 1.Benign essential HTN - Well controlled on current regimen, continue as prescribed - BMP reviewed, repeat annually 2.Borderline hyperlipidemia - Well controlled on current statin regimen, continue as prescribed - FLP reviewed with pt, repeat every 1-2 years 3.BPH (benign prostatic hyperplasia) - Stable/chronic, controlled medically and followed by urology 4.GOA (generalized osteoarthritis) - Continue celebrexper ortho, labs reviewed and wnl, tolerating well clinically with good response to therapy - Discussed avoiding excessive alcohol, concurrent NSAID use, etc f/u PRN or [id number]. Time: 40mins 5 - pre-visit chart review 30 - visit, inclusive of history, exam, and discussion of assessment/plan 5 - post-visit documentation/orders/coordination of care Problem List/Past Medical History Ongoing Acute allergic rhinitis Benign essential HTN Borderline hyperlipidemia BPH (benign prostatic hyperplasia) Congenital renal cyst ED (erectile dysfunction) Gilbert's syndrome GOA (generalized osteoarthritis) H/O total knee replacement Impacted cerumen, bilateral Infectious colitis Ingrown right big toenail Irregular heartbeat Lumbar facet arthropathy OA (osteoarthritis) of knee Skin lesion Toe pain, right Wrist pain, right Resolved Achilles tendinitis, right leg Procedure/Surgical History MRI of lumbar spine| Service Date: 01/17/2022X-ray of lumbar spine| Service Date: 11/08/2021Hernia repair| Service Date: 09/2021Ultrasound| Service Date: 1Right knee| Service Date: 03/19/2020Colonoscopy| Service Date: 01/01/2020CT of abdomen and pelvis| Service Date: Bilateral extraction of cataractsHistory of bilateral hip replacementHistory of left total knee replacementPartial shoulder replacementCholecystectomyHistory of hernia [id number] mode ultrasound - Testicular ultrasoundTotal shoulder replacementArthroscopyElbow Medications amLODIPine(amLODIPine 10 mg oral tablet), See Instructions, 3 refills celecoxib(celecoxib 200 mg oral capsule), 200 mg= 1 cap, PO, Daily, 1 refills lisinopril(lisinopril 40 mg oral tablet), 1 tab, PO, Daily, 3 refills mirabegron(Myrbetriq 50 mg oral tablet, extended release) multivitamin, 1 tab, PO, Daily rosuvastatin(rosuvastatin 10 mg oral tablet), See Instructions, 3 refills tamSULOsin(tamsulosin 0.4 mg oral capsule), 0.4 mg= 1 cap, PO, Daily, 3 refills Allergies oxyCODONEhypotension, from percocet Social History Smoking Status Never smoked cigarettes [...] due04/03/22and every 1year Due Adult COVID-19 Vaccination due12/25/23Unknown Frequency Adult Social Determinants of Health Screening due12/25/23Unknown Frequency Adult Tdap/Td Vaccine due12/25/23Unknown Frequency Shingles Vaccine due12/25/23One-time only Due In Future Adult Influenza Vaccine not due until01/05/24and every 1year Satisfied(in the past 1 year) Satisfied Adult Influenza Vaccine on03/25/23.Satisfied by YADIRA Sharif Angela Body Mass Index on12/25/23.Satisfied by YADIRA Nguyen Angela Lipid Screening on12/09/23.Satisfied by Cont[email or web address] Electronic Signature on File Electronically Reviewed/Signed by: Karyn Edwards MD Author Signature Dt/Tm:12/25/2023 10:24 AM Department of Family Medicine [facility] Patient Care team information Care Team Personnel Name: MD Jerry, Karyn Grigsby Position: Physician Member Role: Primary Care Provider Address: Address: [address] [place] [address] Care Team Related Persons Name: ABUNDIO MURPHY Address: home [address] [facility] [id number] Name: JUDAH MURPHY Name: JUDAH MURPHY Name: JUDAH MURPHY Name: ERUM MURPHY Address: home [address] [place], [place] [id number]"
--- OUTSIDE RECORDS SUMMARY | 2024-04-08 20:49 | External Medical Summary | Continuity of Care Document ---
Author Name Unknown Organization [place] [id number] Address [address] [place] [phone] Care Team Providers Care Mortgage Loan Officer Originator Name Role Phone Karyn Edwards Primary Care Physician [phone] [id number] Date(s): 11/12/23 - 11/12/23 [place] [address] [place] [id number] [facility] Medicine [address] [place], [place] [id number] Encounter Diagnosis Lumbar facet arthropathy(Discharge Diagnosis) - 11/11/23 Discharge Disposition: Home or Self Care Attending Physician: MD José Gregory G Allergies, Adverse Reactions, Alerts Substance Reaction Severity [...] Refills: 0, TAKE 1 TABLET DAILY, Pharmacy: [facility]/pharmacy #[id number] Start Date: 10/10/23 Status: Ordered celecoxib 200 mg oral capsule Start: 06/12/23 10:55:00 EST, 1 cap, PO, Daily, Disp# 90 cap, Refills: 1, TAKE 1 CAPSULE BY MOUTH ONCE NEEDED FOR PAIN, Pharmacy: [facility]/pharmacy #[id number] Start Date: 06/12/23 Status: Ordered Debrox 6.5% otic solution Start: 02/13/22 16:48:00 EDT, 5 drop, both ears, tid, Disp# 30 mL, Pharmacy: [facility]/pharmacy #[id number] Start Date: 02/13/22 Status: Ordered latanoprost 0.005% ophthalmic emulsion Start: 11/08/23 12:27:00 EDT, 0 Refill(s) Start Date: 11/08/23 Status: Ordered lisinopril 40 mg oral tablet Start: 04/29/23 12:52:00 EDT, 1 tab, PO, Daily, Disp# 90 tab, Refills: 3, Pharmacy: [facility] STORE [id number] Start Date: 04/29/23 Status: Ordered multivitamin Start: 01/27/18 10:49:00 EDT, 1 tab, PO, Daily Start Date: 01/27/18 Status: Ordered Myrbetriq 50 mg oral tablet, extended release Start: 01/21/23 11:46:00 EDT, 90 tab Start Date: 01/21/23 Status: Ordered rosuvastatin 10 mg oral tablet Start: 05/10/23 13:06:00 EDT, See Instructions, Disp# 90 tab, Refills: 0, TAKE 1 TABLET AT BEDTIME,[facility] Start Date: 05/10/23 Status: Ordered tamsulosin 0.4 mg oral capsule Start: 04/17/22 11:26:00 EDT, 1 cap, PO, Daily, Disp# 90 cap, Refills: 3, [facility] Start Date: 04/17/22 Stop [...] Literacy Communication Barriers N ever Primary Language Latvian Problem List Condition Confirmation Course Effective Dates [...] Effective Dates Health Status Clinical Service Informant Lumbar facet arthropathy Discharge Diagnosis 11/11/23 Procedures Procedure Date Related Diagnosis Body Site [...] Most recent to oldest [Reference Range]: 1 Heart Rate 59 bpm (11/12/23 9:15 AM) Blood Pressure 126/80mmHg (11/12/23 9:15 AM) Social History Social History Type Response Smoking Status Never smoked cigaret donna Sex Male Ortho Outpt Note * MD Arnav, Emre Carrillo: PERFORM Event Display: Ortho Outpt Note Authored Date: [id number] Name:MARGARITA MURPHY Patient Number:[id number] :1940 Date of Service:11/12/2023 Preoperative diagnosis: Right L3-4 facet arthropathy Postoperative diagnosis: Same Procedure: Right L3-4 facet joint injection under fluoroscopic guidance Indications: Patient is an 83-year-old malewho had a facet joint injection in May with 90% improvement recently his pain started to return he presents today for another injection provided withrelief Physical examination patient is without any focal motor or sensory deficits and negative seated straight leg raises, right sided tenderness of the lumbar sacral facet area, worse with extension. Consent: Verbal consent was obtained from the patient. Prior to the procedure a timeout was done for safety to identify patient's name date of and approach. Procedure: Patient was maintained in a prone position backside was cleansed with Betadine x 3, fluoroscope was used to identify the right L3-4 facet joint . The overlying skin was anesthetized with2.5 mL of lidocaine 1% with a 25-gauge 1/2 inch needle. A 3-1/2 inch 22-gauge spinal needle was then directed under fluoroscopic guidance into the joint and they underwent injection after negative aspiration of <0.25ml of Omnipaque 300 to confirm intraarticular uptake then injection after negative aspiration of half a milliliter of the 80 mg/mL concentration of Depo-Medrol and 1/2 mL of 0.25% bupivacaine. Injection was well-tolerated images from the procedure were saved and downloaded to PACS. Disposition: Patient will be discharged home once discards criteria have been met. Electronic Signature on File CC: Karyn Edwards MD [address] [id number] Electronically Reviewed/Signed by: Emre José MD Author Signature Dt/Tm:11/12/2023 09:46 AM Clinical Product Specialist of Orthopaedics & Rehabilitation and Physical Medicine & Rehabilitation [facility] .Outpt Proc * CAITLIN Walker, Doris Aggarwal: PERFORM Event Display: .Outpt Proc Authored Date: [id number] OUTPATIENT PROCEDURE Name: MARGARITA MURPHY Patient Number: [id number] : 1940 Date of Service: 11/12/2023 OUTPATIENT PROCEDURE NOTE Is patient no Procedure performedRightFacet Joint Injection [id number] byDr. Emre José MD Resuscitation equipment checkedyes Anticoagulants stoppedN/A Patient has a driveryes xray guidance usedyesConscious sedationnoTime out completedyes consent signedyes Allergies checkedyesoxyCODONE Diabeticno PositionPronePre procedure pain level _6__/10 Skin PrepBetadineSterile drapes usedyes Skin Local Anesthetic: Needle ___25__ga ___1.4___in Lidocaile __1___%__3___ml Other HR: 59 SpO2: 93% BP: 126/80 Block Needle _22_GA_3.5_InchesType - Epidural/spinal needle Procedure medication used Cortical Steroids _80__mg MethylprednisoloneLocal Anesthetic ___0.25__% ___0.5__ml Bupivicaine TimeDrug/Event/RemarkBPHRSPO2 Comments 0939 - 0.25ml Omnipaque R Facet joint 0940 - Procedure complete 154/78 56 98% Status:Pain on discharge __0__/10ComplicationsNo Neurologically stableYes DispositionDischarged Home with aftercare instructions given Follow up prn Electronic Signature on File Electronically Reviewed/Signed by: Doris Walker Author Signature Dt/Tm:11/12/2023 09:45 AM Electronically Reviewed/Signed by: Emre José MD Cosigner Signature Dt/Tm: 11/13/2023 01:43 PM Clinical Product Specialist of Orthopaedics & Rehabilitation and Physical Medicine & Rehabilitation [facility] Patient Care team information Care Team Personnel Name: MD Jerry, Karyn Grigsby Position: Physician Member Role: Primary Care Provider Address: Address: [address] [place] [address], [place] [address] Care Team Related Persons Name: ABUNDIO MURPHY Address: home [address] [facility], [phone] Name: JUDAH MURPHY Name: JUDAH MURPHY Name: JUDAH MURPHY Name: ERUM MURPHY Address: home [address] [facility], [place] [phone]
--- OUTSIDE RECORDS SUMMARY | 2024-04-08 20:49 | External Medical Summary | Continuity of Care Document ---
Author Name Unknown Organization [place] [id number] Address [address] [place] [phone] Care Team Providers Care Leg Breaker Name Role Phone Karyn Edwards Primary Care Physician [phone] [facility] [id number] Date(s): 03/25/24 - 03/25/24 [facility] [address] [place] [address] [facility] Medicine [address] [place], [place] [phone] Encounter Diagnosis Lumbar facet arthropathy(Discharge Diagnosis) - 03/25/24 Discharge Disposition: Home or Self Care Attending Physician: MD José Gregory G Allergies, Adverse Reactions, Alerts Substance Criticality Severity [...] Refills: 3, TAKE 1 TABLET DAILY, Pharmacy: [facility]/pharmacy #[id number] Start Date: 12/25/23 Status: Ordered amoxicillin 500 mg oral capsule Start: 03/24/24 11:54:00 AM EDT, 8 each, 0 Refill(s), TAKE 4 CAPSULES BY MOUTH 1 HOUR BEFORE APPOINTMENT Start Date: 03/24/24 Status: Ordered celecoxib 200 mg oral capsule Start: 03/16/24 1:16:00 PM EDT, 1 cap, PO, Daily, Disp# 90 cap, Refills: 1, PRN: NEEDED FOR PAIN, Pharmacy: [id number] Start Date: 03/16/24 Status: Ordered lisinopril 40 mg oral tablet Start: 12/25/23 10:10:00 AM EDT, 1 tab, PO, Daily, Disp# 90 tab, Refills: 3, Pharmacy: [facility]/pharmacy #[id number] Start Date: 12/25/23 Status: Ordered multivitamin Start: 01/27/18 10:49:00 AM EDT, 1 tab, PO, Daily Start Date: 01/27/18 Status: Ordered Myrbetriq 50 mg oral tablet, extended release Start: 01/21/23 11:46:00 AM EDT, 90 tab Start Date: 01/21/23 Status: Ordered rosuvastatin 10 mg oral tablet Start: 12/25/23 10:10:00 AM EDT, See Instructions, Disp# 90 tab, Refills: 3, TAKE 1 TABLET AT BEDTIME, [id number] Start Date: 12/25/23 Status: Ordered tamsulosin 0.4 mg oral capsule Start: 04/17/22 11:26:00 AM EDT, 1 cap, PO, Daily, Disp# 90 cap, Refills: 3, [facility] Start Date: 04/17/22 Stop Date: 04/12/23 Status: Ordered timolol maleate 0.5% ophthalmic solution Start: 03/24/24 11:55:00 AM EDT, 5 mL, 0 Refill(s), PLACE 1 DROP INTO LEFT EYE EVERY MORNING Start Date: 03/24/24 Status: Ordered Mental Status 03/25/24 Barriers to Learning one year None evide nt Mandatory Health Literacy Documentation Yes Health Literacy Communication Barriers N ever Primary Language Guinean Problem List Condition Confirmation Course Effective Dates [...] Service Informant Lumbar facet arthropathy Discharge Diagnosis 03/25/24 Non-Specified Procedures Procedure Date Related Diagnosis Body [...] Most recent to oldest [Reference Range]: 1 Respiratory Rate 16 br/min (03/25/24 9:28 AM) Blood Pressure 158/76mmHg (03/25/24 9:28 AM) Cuff Pulse Pressure 82 mmHg (03/25/24 9:28 AM) Social History Social History Type Response Smoking Status Never smoked cigaret donna Sex Male Sex Representation Male (finding) Ortho Outpt Note * MD Arnav, Emre Carrillo: PERFORM Event Display: Ortho Outpt Note Authored Date: [id number] Name:MARGARITA MURPHY Patient Number:[id number] :1940 Date of Service:03/25/2024 Preoperative diagnosis: Right L3-4 facet arthropathy Postoperative diagnosis: Same Procedure: RightL3-4 facet joint injection under fluoroscopic guidance Indications: Patient is [id number] malewho got great improvement following facet joint injectionmore than 4 months ago he presents today for another injection provided with relief Physical examination patient is without any focal [...] a prone position backside was cleansed with orange ChloraPrep,fluoroscope was used to identify the right L3-4 facet joint . The overlying skin was anesthetizedwith 2.5 mL of lidocaine 1% with a 25-gauge 1/2 inch needle. A 3-1/2 inch 22-gauge spinal needle was then directed under fluoroscopic guidance into the joint and they underwent injection after negative aspiration of <0.25ml of Omnipaque 300 to confirm intraarticular uptake then injection afternegative aspiration of half a milliliter of the 80 mg/mL concentration of Depo-Medrol and 1/2 mL of0.25% bupivacaine. Injection was well- tolerated images from the procedure were saved and downloadedto PACS. Disposition: Patient will be discharged home once discards criteria have been met. Electronic Signature on File CC: Karyn Edwards MD [address] [place] [id number] Electronically Reviewed/Signed by: Emre José MD Author Signature Dt/Tm:03/25/2024 09:44 AM Mix Technician of Orthopaedics & Rehabilitation and Physical Medicine & Rehabilitation [facility] .Outpt Proc * CAITLIN Walker, Doris Aggarwal: PERFORM Event Display: .Outpt Proc Authored Date: [id number] OUTPATIENT PROCEDURE Name: MARGARITA MURPHY Patient Number: [id number] : 1940 Date of Service: 03/25/2024 OUTPATIENT PROCEDURE NOTE Is patient no Procedure performedRightFacet Joint Injection [id number] byDr. Emre José MD Resuscitation equipment checkedyes Anticoagulants stoppedN/A Patient has a driveryes xray guidance usedyesConscious sedationnoTime out completedyes consent signedyes Allergies checkedyesoxyCODONE Diabeticno PositionPronePre procedure pain level __6_/10 Skin PrepchlorhexadineSterile drapes usedyes Skin Local Anesthetic: Needle __25___ga ____1.5__in Lidocaile __1___%___3__ml Other No Vital Signs Data Available Block Needle _25_GA_3.5_InchesType - Epidural/spinal needle Procedure medication used Cortical Steroids _80__mg MethylprednisoloneLocal Anesthetic ___0.25__% ___0.5__ml Bupivicaine TimeDrug/Event/RemarkBPHRSPO2 Comments 0936 - 0.25ml Omnipaque R Facet joint 0937 - Procedure complete 159/88 54 98% Status:Pain on discharge _1___/10ComplicationsNo Neurologically stableYes DispositionDischarged Home with aftercare instructions given Follow up prn Electronic Signature on File Electronically Reviewed/Signed by: Doris Walker Author Signature Dt/Tm:03/25/2024 09:41 AM Electronically Reviewed/Signed by: Emre José MD Cosigner Signature Dt/Tm: 03/25/2024 10:07 AM Mix Technician of Orthopaedics & Rehabilitation and Physical Medicine & Rehabilitation [facility] Patient Care team information Care Team Personnel Name: MD Jerry, Karyn Grigsby Position: Physician Member Role: Primary Care Provider Address: [address] [place] [address] [place] Care Team Related Persons Name: ABUNDIO MURPHY Name: JUDAH MURPHY Name: JUDAH MURPHY Name: JUDAH MURPHY Name: ERUM MURPHY
[2024-04-09 05:21] LABS: Basophils # (auto) 0.03 K/uL (0.00-0.20); Basophils % (auto) 0.4 %; Eosinophils # (auto) 0.12 K/uL (0.00-0.50); Eosinophils % (auto) 1.7 %; Hematocrit (blood only) 46.1 % (42.0-52.0); Hemoglobin 16.1 g/dl (14.0-18.0); Immature Granulocytes # (auto) 0.02 K/uL (0.01-0.20); Immature Granulocytes % (auto) 0.3 %; Lymphocytes # (auto) 1.83 K/uL (1.20-3.40); Lymphocytes % (auto) 26.1 %; Mean Corpuscular Hemoglobin 33.5 pg (25.0-34.0); Mean Corpuscular Hgb Conc 34.9 g/dL (32.0-36.0); Mean Platelet Volume 9.5 fL (9.4-12.4); Monocytes # (auto) 0.71 K/uL (0.11-0.59); Monocytes % (auto) 10.1 %; Neutrophils % (auto) 61.4 %; Platelet Count 147 K/uL (130-400); RDW Coefficient of Variation 12.9 % (11.5-14.5); RDW Standard Deviation 46.4 fL (36.4-46.3); White Blood Count 7.01 K/ul (4.8-10.8)
[2024-04-09 05:24] LABS: Chol HDL Ratio 2.1 (0-5)
--- NOTE | 2024-04-09 06:44 | Ultrasound Report ---
ULTRASOUND BILATERAL LOWER EXTREMITY VENOUS CLINICAL HISTORY: Stroke. Patent foramen ovale.. COMPARISON STUDY: No priors. TECHNIQUE: Real-time, grayscale, and color Doppler sonography of the deep veins of the right and left lower extremity was performed from the inguinal crease to the calf. Compression and augmentation wer e utilized. The groin vessels could not be compressed. FINDINGS: There is no sonographic evidence of deep venous thrombosis identified in the right or left lower extremity. The common femoral, superficial femoral, and popliteal veins are patent and normally compressible bilaterally. The greater saphenous vein and the profunda femoris vein at the junction w ith the common femoral vein are clear in both legs. The visualized calf veins are patent bilaterally. IMPRESSION: There is no sonographic evidence of deep venous thrombosis identified in the right or lef t lower extremity. ACT 112: Negative or not required by law. Electronically signed by: Khurram Hussein M.D. 04/09/2024 6:42 AM
--- NOTE | 2024-04-09 07:15 | Critical Care Progress Note ---
Date of Service April 09, 2024 Assessment & Plan Plan Pt is a 83 yo male with a past medical hx of HTN, BPD, ED, who presented to the hospital on 04/08 for L sided facial droop and L arm weakness starting 04/08 at 9am, now s/p TNK 10/2 at 11 am. PLAN: Neuro: Acute CVA -Status post TNKase 04/08 at 11 am -head CT/CTA/neck CTA all wnl - brain MRI showed several acute infarcts in the R basal ganglia up to 1.5cm, and possibly several in R cerebral hemisphere -pending head CT at 11 am today -PT/OT pending -speech eval pending CV: Hypertension - post thrombolytic goal of SBP<180 and DBP<105, pt has had permissive BPs thus far with home amlodipine 10 mg and lisinopril 40 mg held, continue to hold given pressures have been 120-130s/70-80s PFO -echo showed PFO and EF 55-60%, no clear source of emboli noted on echo GI/Nutrition: Hyperlipidemia -High intensity statin to start today -lipids; TChol 128, LDL 55, triglyc 67 Heme: -Status post TNKase Endocrine: -ICU hyperglycemia protocol Vascular access: Peripheral IVs DVT ppx: deferred in the setting of TNKase administration within the last 24 hours Code Status: Full code Disposition: Stable for downgrade out of the ICU this afternoon, PT/OT pending for final dispo Admission and Anticipated Discharge Date Admission Date: April 08, 2024 Subjective Pt is a 83 yo male with a past medical hx of HTN, BPD, ED, who presented to the hospital on 04/08 for L sided facial droop and L arm weakness starting 04/08 at 9am, now s/p TNK 102 at 11 am. Today, pt states he is feeling great. He notes his symptoms seem to have completely gone away since around noon yesterday. No residual issues. No headache or vision changes such as double vision or blurry vision. No chest pain or SOB. No nausea or vomiting. No further complaints today, feeling as though he wants to go home later today if possible. 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 strength and 5/5 hip and knee flexion/ext Results & Data Results & Data Vital Signs (Past 12 Hours) Vital Signs Temp Pulse Pulse Resp BP BP Pulse Ox 04/09/24 06:57 36.8 C 62 18 125/80 94 04/09/24 06:00 36.7 C 60 18 124/76 93 04/09/24 05:57 36.7 C 68 19 124/76 91 04/09/24 05:00 63 19 121/74 91 04/09/24 04:57 63 19 121/74 91 04/09/24 04:00 71 20 143/82 H 92 04/09/24 03:57 36.7 C 73 20 127/72 93 04/09/24 03:00 66 18 137/80 91 04/09/24 02:57 36.7 C 66 20 127/83 93 04/09/24 02:00 72 20 134/89 91 04/09/24 01:57 64 18 136/82 91 04/09/24 01:00 36.6 C 72 20 127/83 91 04/09/24 00:57 78 14 127/83 91 04/09/24 00:00 69 19 131/77 91 04/09/24 00:00 73 04/08/24 23:57 69 19 131/77 92 04/08/24 22:57 36.6 C 73 18 140/81 92 04/08/24 22:00 74 22 90 04/08/24 21:57 36.7 C 70 17 141/83 H 93 04/08/24 21:00 36.6 C 73 14 150/83 H 91 04/08/24 20:57 36.6 C 18 152/86 H 90 04/08/24 20:00 63 04/08/24 19:57 36.6 C 67 19 128/87 93 04/08/24 19:30 36.6 C 67 14 140/79 92 04/08/24 19:27 36.6 C 67 14 140/79 92 O2 Del Method O2 Flow Rate 04/09/24 06:57 Room Air 04/09/24 06:00 Nasal Cannula 2 04/09/24 05:57 Nasal Cannula 2 04/09/24 05:00 Nasal Cannula 2 04/09/24 04:57 Nasal Cannula 2 04/09/24 04:00 Nasal Cannula 2 04/09/24 03:57 Nasal Cannula 2 04/09/24 03:00 Nasal Cannula 2 04/09/24 02:57 Nasal Cannula 2 04/09/24 02:00 Nasal Cannula 2 04/09/24 01:57 Nasal Cannula 2 04/09/24 01:00 Nasal Cannula 2 04/09/24 00:57 Nasal Cannula 2 04/09/24 00:00 Nasal Cannula 2 04/09/24 00:00 04/08/24 23:57 Nasal Cannula 2 04/08/24 22:57 Nasal Cannula 2 04/08/24 22:00 Room Air 04/08/24 21:57 Nasal Cannula 2 04/08/24 21:00 Room Air 04/08/24 20:57 Room Air 04/08/24 20:00 04/08/24 19:57 Room Air 04/08/24 19:30 Room Air 04/08/24 19:27 Room Air
--- NOTE | 2024-04-09 07:22 | Hospitalist Progress Note ---
Date of Service April 09, 2024 Assessment & Plan (1) Stroke-like symptoms: Plan: s/p TNK stroke confirmed on imaging Brain MRI with multiple infarction in Basal Ganglia and right cerebral hemisphere consistent with embolic stroke Echo with Patent foramen ovale, other vascular studies of head and neck negative for significant embolic source Continue to monitor for atrial fibrillation neurology is recommending against aspirin but will recommend anticoagulation Eliquis has begun in the evening of 04/09/2024 Stroke protocol s/p TNK, CT head in 24 hours negative for acute hemorrhage redemonstrates previously seen right cerebral and basal ganglia infarct Initially held both amlodipine and lisinopril. Blood pressure is slowly rising will give a dose of amlodipine 5 mg in the p.m. of 04/09 starting at 10 mg amlodipine in the morning. Will restart lisinopril 10 mg in the morning where his normal home dose is 40. Hydralazine is on for backup in case blood pressure gets significantly elevated. previously on rosuvastatin If patient has an inconsequential night likely anticipate discharge 04/30 Plan VTE Prophyalxis - SCDs incidentally noted elevated bili history of same Admission and Anticipated Discharge Date Admission Date: April 08, 2024 Subjective Patient seen in the company of his family he has no complaints he has no recurrence of symptoms he is ambulating well and eating and speaking well Discussed the pros and cons of anticoagulation medication patient is comfortable beginning Eliquis therapy Physical Exam Physical Exam: Awake alert appropriate cranial nerves are intact cardiac exam is regular without murmurs (no murmurs heard with his patent foramen ovale) Lungs are clear neurologically he is without facial drooping equal symmetrical strength/sensation to both hands and feet Results & Data Results & Data Vital Signs (Past 12 Hours) Vital Signs Temp Pulse Pulse Resp BP BP Pulse Ox 04/09/24 06:57 98.2 F 62 18 125/80 94 04/09/24 06:00 98.1 F 60 18 124/76 93 04/09/24 05:57 98.1 F 68 19 124/76 91 04/09/24 05:00 63 19 121/74 91 04/09/24 04:57 63 19 121/74 91 04/09/24 04:00 71 20 143/82 H 92 04/09/24 03:57 98.1 F 73 20 127/72 93 04/09/24 03:00 66 18 137/80 91 04/09/24 02:57 98.1 F 66 20 127/83 93 04/09/24 02:00 72 20 134/89 91 04/09/24 01:57 64 18 136/82 91 04/09/24 01:00 97.9 F 72 20 127/83 91 04/09/24 00:57 78 14 127/83 91 04/09/24 00:00 69 19 131/77 91 04/09/24 00:00 73 04/08/24 23:57 69 19 131/77 92 04/08/24 22:57 97.9 F 73 18 140/81 92 04/08/24 22:00 74 22 90 04/08/24 21:57 98.1 F 70 17 141/83 H 93 04/08/24 21:00 97.9 F 73 14 150/83 H 91 04/08/24 20:57 97.9 F 18 152/86 H 90 04/08/24 20:00 63 04/08/24 19:57 97.9 F 67 19 128/87 93 04/08/24 19:30 97.9 F 67 14 140/79 92 04/08/24 19:27 97.9 F 67 14 140/79 92 O2 Del Method O2 Flow Rate 04/09/24 06:57 Room Air 04/09/24 06:00 Nasal Cannula 2 04/09/24 05:57 Nasal Cannula 2 04/09/24 05:00 Nasal Cannula 2 04/09/24 04:57 Nasal Cannula 2 04/09/24 04:00 Nasal Cannula 2 04/09/24 03:57 Nasal Cannula 2 04/09/24 03:00 Nasal Cannula 2 04/09/24 02:57 Nasal Cannula 2 04/09/24 02:00 Nasal Cannula 2 04/09/24 01:57 Nasal Cannula 2 04/09/24 01:00 Nasal Cannula 2 04/09/24 00:57 Nasal Cannula 2 04/09/24 00:00 Nasal Cannula 2 04/09/24 00:00 04/08/24 23:57 Nasal Cannula 2 04/08/24 22:57 Nasal Cannula 2 04/08/24 22:00 Room Air 04/08/24 21:57 Nasal Cannula 2 04/08/24 21:00 Room Air 04/08/24 20:57 Room Air 04/08/24 20:00 04/08/24 19:57 Room Air 04/08/24 19:30 Room Air 04/08/24 19:27 Room Air Laboratory Results Reviewed CBC reviewed chemistry Discussed case with neurology PG Care Time/CCT Total # of Minutes Spent Total Time Spent with Patient: Total time spent is greater than 50% in coordination of care (as documented) at patient's floor/unit and/or counseling patient: Coding Level of Care Code 52080 SUB INP/OBS CARE 3/50MIN Diagnoses Stroke-like symptoms R29.90
[2024-04-09 08:01] LABS: Estimated Average Glucose 117 mg/dl; Hemoglobin A1C 5.7 % (4.5-5.6)
--- NOTE | 2024-04-09 09:31 | Neurology Consultation ---
Date of Consultation April 09, 2024 Assessment & Plan (1) CVA (cerebral vascular accident): (2) Patent foramen ovale: (3) Sensory polyneuropathy: Plan Patient presented April 08 with a several hour history of left facial droop, left arm weakness and possible left leg weakness. He received TNKase and this morning he is essentially back to baseline with no weakness in the arms or legs and a markedly improved facial droop (slight asymmetry now only). MRI showed 5 or 6 small new strokes some of which appeared subacute and some of which appeared more acute. There were scattered in the right middle cerebral artery territory. After discussion with radiology and considering his history, I suspect these are embolic in nature. In addition, he has some dilated atria and a PFO (even though the echo did not show any actual clot formation). Patient has other risk factors for stroke including hypertension and dyslipidemia. These parameters however are fairly well-controlled. Recommendations: 1. CT scan at 24 hours following thrombolytic per protocol 2. Physical, occupational, and speech therapy consults to start increasing activity and he can start ambulating and moving around more 24 hours after the thrombolytic. 3. Initiate anticoagulant. I believe apixaban is going to be chosen but I will leave this up to his other physicians 4. I see no indication for antiplatelet medication at this time 5. The patient should curtail his activities over the next week or 2 including no going to the football game or hunting. He should not be out golfing or exercising in the gym. Stick to "puttering" and stretching. 6. Could follow-up with neurology in 3 to 4 weeks after discharge with PA. Overall, I spent a total of 120 minutes with this case including review of records, review of CT and MRI films, direct evaluation the patient at bedside, report generation, and discussion of the case with the patient and daughter at bedside, RN at bedside, Dr. Mitchell estes, and Dr. Khalil, including differential diagnosis and treatment options. History of Present Illness Reason for Consultation: Patient is an 83-year-old, who I was asked to see at the request of Dr. Vallejo, for neurologic consultation regarding strokelike symptoms followed by thrombolytic infusion Requesting Physician: Dr. Vallejo Attending Physician: James Rahman MD History of Present Illness The patient's daughter, son-in-law, and were present in the room and added to history This patient has a history of hypertension, dyslipidemia, renal stones and benign prostatic hypertrophy. He was on lisinopril 40 mg a day and rosuvastatin 10 mg daily. He has no history of strokes or obvious cardiac disease. The patient woke up at 0730 on April 08. He was normal. He ate breakfast and around 9:00 his noted a significant left facial droop and some slurred speech. At the same time he had some trouble getting his left shoe on. He felt that his left hand was a little clumsy and weak. He denied any numbness or tingling and did not have any pain. He had no headache, dizziness, or mentation difficulty. His balance was good and he could walk. His brought him to the emergency room and he arrived on April 08 at 1042. Temperature was 36.8, respiratory rate 18, pulse 61, blood pressure 143/73, and O2 saturation 94%. On examination he was felt to have a left facial droop and left foot was mildly weak. There may have been some slight ataxia with finger-nose testing on the left as well. CBC was unremarkable and CHEM profile was reasonable except for a BUN of 28 and glucose of 155. Urinalysis was unremarkable CT scan of the head was unremarkable and showed no acute changes. CT angiography of the head and of the neck were normal with no vascular anomalies or stenoses. After deliberation with [facility] he ended up getting TNKase (at 1056). The states and the agrees that within "minutes" of the thrombolytic he had a marked improvement in his arm and face. MRI of the brain without contrast revealed 5 or 6 scattered tiny acute strokes, some of which appearing very acute and some of which appearing subacute. They were all within the middle cerebral artery territory on the right but were spread out some. The brain had some moderate small vessel ischemic disease and atrophy in general. These appear to be embolic in nature. I reviewed these films with Dr. Medrano radiology. Echocardiogram revealed mild concentric LVH and no source of emboli were seen. Atria were dilated and he had a PFO. Today he feels back to baseline and does not have weakness or numbness in his arms or legs and does not feel any weakness or numbness of his face. His agrees that he is markedly better with left facial droop today. He has no pain or headache. Today, hemoglobin A1c is 5.7, total cholesterol 128, and triglycerides 67. Allergies Allergy/AdvReac Type Severity Reaction Status Date / Time oxycodone [From Percocet] AdvReac Intermediate Hypotension Verified 04/08/24 11:59 Home Medications Medication Instructions Recorded Confirmed Type lisinopril 40 mg tablet 40 mg PO QAM 03/18/18 04/08/24 History multivitamin (Multiple Vitamins 1 tab PO QAM 03/18/18 04/08/24 History tablet) rosuvastatin 10 mg tablet 10 mg PO QAM 03/18/18 04/08/24 History celecoxib 200 mg capsule (Celebrex) 200 mg PO QAM PRN Pain 06/20/22 04/08/24 History tamsulosin 0.4 mg capsule See Rx Instructions .Route 08/01/23 04/08/24 Rx .COMPLEX #90 caps mirabegron 50 mg tablet,extended 50 mg PO DAILY #90 tabs 10/10/23 04/08/24 Rx release 24 hr (Myrbetriq) amlodipine 10 mg tablet 10 mg PO DAILY 04/08/24 04/08/24 History sildenafil 100 mg tablet 0 mg PO DAILY PRN sexual activity 04/08/24 04/08/24 History timolol maleate 0.5 % eye drops 1 drp OPL QAM 04/08/24 04/08/24 History Patient History Medical History Osteoarthritis Kidney stones passed without intervetion BPH (benign prostatic hyperplasia) Hyperlipidemia HTN (hypertension) Surgical History History of cholecystectomy H/O inguinal hernia repair bilateral Hx of bilateral cataract extraction Hx of elbow surgery calcium deposit right History of arthroscopy left x2 History of total shoulder replacement right History of total hip arthroplasty left/right History of total knee replacement left History of colonoscopy Family History Father , age 75 of heart issues Heart disease Mother , age 83 of cancer (unknown type) Cancer Other Hypertension Social History (Updated 04/09/24 @ 09:44 by James Bullard MD) Smoking Status: Never smoker Second Hand Exposure: No; Do You Dip or Chew Tobacco: No; Hx Alcohol Use: Yes Alcohol type: wine and hard liquor Alcohol Intake Frequency Comment: 1-2 drinks per day on average Hx Substance Use: No Preferred Language: Thai Communication Ability: Effective Hearing Ability: Normal Material Reclaimer Required: Yes Beliefs That Will Affect Care: None marital status: Current Living Situation: Spouse current occupational status: retired 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 Feels Safe at Home: Yes Assistive Devices: None Review of Systems Constitutional: no fever, no fatigue and no weakness Eyes: no diplopia, no eye pain and no worsening vision Ear, Nose, Mouth, Throat: no ear pain, no tinnitus, no hearing loss, no dizziness, no snoring, no hoarseness and no dysphagia Respiratory: no cough and no dyspnea Cardiovascular: no chest pain, no palpitations and no lightheadedness Gastrointestinal: no abdominal pain, no nausea and no vomiting Musculoskeletal: no back pain, no neck pain, no radicular pain, no joint pain and no myalgia Integumentary: no rash and no lesions Neurologic: no gait abnormality, no localized weakness, no generalized weakness, no tingling, no numbness, no tremor(s), no abnormal movements, no headache(s), no abnormal speech, no confusion and no memory loss Psychiatric: no depression, no irritability, no anxiety, no difficulty concentrating, no confusion and no hallucinations Endocrine: no fatigue and no flushing Hematologic / Lymphatic: no easy bleeding and no easy bruising Allergy / Immunological: no urticaria and no problem reported Exam (Neuro) Physical Exam: The patient is right-handed. The patient is awake, alert, and attentive. Speech is normal without any aphasia or dysarthria. Mentation and thought processes are intact, with full orientation and normal fund of knowledge. Mood and affect are normal and appropriate. Appearance and grooming are normal. Short and long-term memory are intact. Pupils are 4 mm bilaterally and reactive to light. Extraocular eye muscles are intact without nystagmus. Visual acuity and visual mckoy seem normal grossly to confrontation. There are no deficits to sensation in the face in all 3 distributions of the fifth cranial nerve bilaterally. Corneal reflexes are positive bilaterally. Facial strength was normal bilaterally. There may have been a very slight droop at the corner of the mouth on the left although it moves well with voluntary smile. Hearing seems intact grossly to voice and finger rub bilaterally. Palate moves well without asymmetry. There is normal sternocleidomastoid and trapezius strength bilaterally. Tongue is midline with good strength bilaterally. Neck has a full range of motion without discomfort. There are no cervical bruits bilaterally. There are no cranial or ocular bruits. Heart is without murmur. There is a regular rhythm and rate. Cervical, thoracic, and lumbar spine are nontender to palpation. Gait was not tested. Stance sitting up in bed with feet dangling was normal. With outstretched arms there is no drift. There are no resting, postural, or action tremors. There is no ataxia with finger to nose testing. There is good facility in the hands. No other abnormal involuntary movements are noted. Motor strength is 5/5 diffusely in the arms bilaterally including deltoids, biceps, triceps, brachioradialis, wrist flexors and extensors, psychiatric attendant, and intrinsic hand muscles. Motor strength is 5/5 diffusely in the legs bilaterally including hip flexors, quadriceps, hamstrings, gastrocnemius, tibialis anterior, tibialis posterior, and Peroneii muscles bilaterally. Toe extensors are normal and there is good bulk in the extensor digitorum brevis muscles bilaterally. The limbs have good tone without rigidity or spasticity. There is no atrophy noted in the muscles. Muscle bulk is normal, there is no tenderness to palpation, no myotonia to percussion, and no fasciculations seen. Sensory examination revealed a stocking decreased pinprick to the ankles bilaterally. Reflexes are 1/4 in the biceps, triceps, brachioradialis, and quadriceps tendons bilaterally. Achilles tendon reflexes were absent bilaterally. Toes are downgoing with plantar stimulation bilaterally. Peripheral pulses are present and of normal quality distally in all 4 limbs. There is no peripheral edema noted in the limbs. Results & Data Vital Signs (Past 12 Hours) Vital Signs Temp Pulse Pulse Resp BP Pulse Ox O2 Del Method 04/09/24 08:57 37.0 C 66 18 141/80 H 91 Room Air 04/09/24 07:57 37.0 C 72 18 123/83 91 Room Air 04/09/24 07:27 Room Air 04/09/24 06:57 36.8 C 62 18 125/80 94 Room Air 04/09/24 06:00 36.7 C 60 18 124/76 93 Nasal Cannula 10/03/24 05:57 36.7 C 68 19 124/76 91 Nasal Cannula 04/09/24 05:00 63 19 121/74 91 Nasal Cannula 04/09/24 04:57 63 19 121/74 91 Nasal Cannula 04/09/24 04:00 71 20 143/82 H 92 Nasal Cannula 04/09/24 03:57 36.7 C 73 20 127/72 93 Nasal Cannula 04/09/24 03:00 66 18 137/80 91 Nasal Cannula 04/09/24 02:57 36.7 C 66 20 127/83 93 Nasal Cannula 04/09/24 02:00 72 20 134/89 91 Nasal Cannula 04/09/24 01:57 64 18 136/82 91 Nasal Cannula 04/09/24 01:00 36.6 C 72 20 127/83 91 Nasal Cannula 04/09/24 00:57 78 14 127/83 91 Nasal Cannula 04/09/24 00:00 69 19 131/77 91 Nasal Cannula 04/09/24 00:00 73 04/08/24 23:57 69 19 131/77 92 Nasal Cannula 04/08/24 22:57 36.6 C 73 18 140/81 92 Nasal Cannula 04/08/24 22:00 74 22 90 Room Air 04/08/24 21:57 36.7 C 70 17 141/83 H 93 Nasal Cannula O2 Flow Rate 04/09/24 08:57 04/09/24 07:57 04/09/24 07:27 04/09/24 06:57 04/09/24 06:00 2 04/09/24 05:57 2 04/09/24 05:00 2 04/09/24 04:57 2 04/09/24 04:00 2 04/09/24 03:57 2 04/09/24 03:00 2 04/09/24 02:57 2 04/09/24 02:00 2 04/09/24 01:57 2 04/09/24 01:00 2 04/09/24 00:57 2 04/09/24 00:00 2 04/09/24 00:00 04/08/24 23:57 2 04/08/24 22:57 2 04/08/24 22:00 04/08/24 21:57 2 PG Care Time/CCT Total # of Minutes Spent Total Time Spent with Patient: Total time spent is greater than 50% in coordination of care (as documented) at patient's floor/unit and/or counseling patient: Coding Level of Care Code 08536 INT INP/OBS CARE MIN Diagnoses CVA (cerebral vascular accident) I63.9 Patent foramen ovale Q21.12 Sensory polyneuropathy G60.8 Time Spent (min) 120
--- NOTE | 2024-04-09 09:32 | Critical Care Progress Note ---
Date of Service April 09, 2024 Assessment & Plan (1) CVA (cerebral vascular accident): (2) Stroke-like symptoms: Plan Pt is a 83 yo male with a past medical hx of HTN, BPD, ED, who presented to the hospital on 04/08 for L sided facial droop and L arm weakness starting 04/08 at 9 am, now s/p TNK 04/08 at 11 am. Reason for critically ill: s/p TNKase PLAN: Neuro: Acute CVA -Status post TNKase 04/08 at 11 am -head CT/CTA/neck CTA all wnl - brain MRI showed several acute infarcts in the R basal ganglia up to 1.5cm, and possibly several in R cerebral hemisphere -pending head CT at 11 am today -PT/OT pending -speech eval pending CV: Hypertension - post thrombolytic goal of SBP<180 and DBP<105, pt has had permissive BPs thus far with home amlodipine 10 mg and lisinopril 40 mg held, continued to hold this morning given pressures have been 120-130s/70-80s but if they increase later today could consider restarting PFO -echo showed PFO and EF 55-60%, no clear source of emboli noted on echo GI/Nutrition: Hyperlipidemia -High intensity statin to start today -lipids; TChol 128, LDL 55, triglyc 67 BPH - restart home tamsulosin today Heme: -Status post TNKase Endocrine: -ICU hyperglycemia protocol -HA1c; 5.7% Vascular access: Peripheral IVs DVT ppx: deferred in the setting of TNKase administration within the last 24 hours Code Status: Full code Disposition: Stable for downgrade out of the ICU later this morning, PT/OT pending for final dispo Admission and Anticipated Discharge Date Admission Date: April 08, 2024 Supervising Physician Co-Signing Physician Notes Dr. Arcos was resident physician during care of patient. I separately evaluated patient for godinez portions of the history and the exam. I was present during the critical portion of medical decision making, and I discussed the case with the resident. I generally agree with the findings and plan. Discussed with neurology. Will start rivaroxaban after 24 hours post TNKase administration for systemic anticoagulation. PFO noted on echocardiogram, possible cardiac etiology. Stable for downgrade out of ICU, critical care will sign off Subjective Pt is a 83 yo male with a past medical hx of HTN, BPD, ED, who presented to the hospital on 04/08 for L sided facial droop and L arm weakness starting 04/08 at 9am, now s/p TNK 04/08 at 11 am. Today, pt states he is feeling great. He notes his symptoms seem to have completely gone away since around noon yesterday. No residual issues. No headache or vision changes such as double vision or blurry vision. No chest pain or SOB. No nausea or vomiting. No further complaints today, feeling as though he wants to go home later today if possible. Review of Systems Review of Systems: All systems reviewed & are unremarkable except as noted in HPI & below Physical Exam Physical Exam: General: Alert and oriented, no acute distress HEENT: Normocephalic, atraumatic, Resp: Lungs clear to auscultation bilaterally, no increased work of breathing Cardio: Regular rate and rhythm, no murmurs GI: Soft and nontender, nondistended, bowel sounds active Skin: Warm, dry, no rashes on visible skin Neuro: CN III-XII grossly intact, 5/5 bilateral dining room helper strength and 5/5 hip and knee flexion/ext Results & Data Results & Data Vital Signs (Past 12 Hours) Vital Signs Temp Pulse Pulse Resp BP Pulse Ox O2 Del Method 04/09/24 08:57 37.0 C 66 18 141/80 H 91 Room Air 04/09/24 07:57 37.0 C 72 18 123/83 91 Room Air 04/09/24 07:27 Room Air 04/09/24 06:57 36.8 C 62 18 125/80 94 Room Air 04/09/24 06:00 36.7 C 60 18 124/76 93 Nasal Cannula 04/09/24 05:57 36.7 C 68 19 124/76 91 Nasal Cannula 04/09/24 05:00 63 19 121/74 91 Nasal Cannula 04/09/24 04:57 63 19 121/74 91 Nasal Cannula 04/09/24 04:00 71 20 143/82 H 92 Nasal Cannula 04/09/24 03:57 36.7 C 73 20 127/72 93 Nasal Cannula 04/09/24 03:00 66 18 137/80 91 Nasal Cannula 04/09/24 02:57 36.7 C 66 20 127/83 93 Nasal Cannula 04/09/24 02:00 72 20 134/89 91 Nasal Cannula 04/09/24 01:57 64 18 136/82 91 Nasal Cannula 04/09/24 01:00 36.6 C 72 20 127/83 91 Nasal Cannula 04/09/24 00:57 78 14 127/83 91 Nasal Cannula 04/09/24 00:00 69 19 131/77 91 Nasal Cannula 04/09/24 00:00 73 04/08/24 23:57 69 19 131/77 92 Nasal Cannula 04/08/24 22:57 36.6 C 73 18 140/81 92 Nasal Cannula 04/08/24 22:00 74 22 90 Room Air 04/08/24 21:57 36.7 C 70 17 141/83 H 93 Nasal Cannula O2 Flow Rate 04/09/24 08:57 04/09/24 07:57 04/09/24 07:27 04/09/24 06:57 04/09/24 06:00 2 04/09/24 05:57 2 04/09/24 05:00 2 04/09/24 04:57 2 04/09/24 04:00 2 04/09/24 03:57 2 04/09/24 03:00 2 04/09/24 02:57 2 04/09/24 02:00 2 04/09/24 01:57 2 04/09/24 01:00 2 04/09/24 00:57 2 04/09/24 00:00 2 04/09/24 00:00 04/08/24 23:57 2 04/08/24 22:57 2 04/08/24 22:00 04/08/24 21:57 2 Resident Activity Tracking Resident Involvement: Resident Care Provided Care Provided: Adult Hospital Medicine
[2024-04-09] MEDS: TIMOLOL MALEATE 0.5% OP SOLN 5 ML BTL OPL SCH (09:37)
[2024-04-09] MEDS: ROSUVASTATIN CALCIUM 20 MG TAB PO SCH (09:37)
[2024-04-09] MEDS: TAMSULOSIN HCL 0.4 MG CAP PO SCH (11:00)
--- NOTE | 2024-04-09 11:53 | CT Scan Report ---
CT head/brain wo con CLINICAL HISTORY: 83 years-old Male with Post TPA/TNK 24 hour- trevon STAT for read please. Acute stro ke like symptoms TECHNIQUE: Multiple axial CT images of the head were obtained without contrast. A dose lowering tech nique was utilized adhering to the principles of ALARA. CT DOSE: 625.8 mGy.cm COMPARISON: Brain MRI April 08, 2024 FINDINGS: No acute intracranial hemorrhage, midline shift, intracranial mass, hydrocephalus, acute territorial infarct or abnormal extra-axial collection. The small acute right cerebral infarcts seen by MRI are b nohemi seen on comparison MRI. The calvarium is intact. The paranasal sinuses, mastoid air cells, and middle ear cavities are clear . IMPRESSION: 1. No acute intracranial hemorrhage. 2. Right cerebral and basal ganglia small infarcts redemonstrated, better seen on yesterday's MRI. ACT 112: Negative or not required by law. The above report was generated using voice recognition software. It may contain grammatical, syntax o r spelling errors. Electronically signed by: Mauro Brandon M.D. 04/09/2024 11:52 AM
[2024-04-09] MEDS ORDERED: RIVAROXABAN 20 MG TAB PO SCH (12:00)
[2024-04-09] MEDS ORDERED: ASPIRIN 81 MG ECTAB PO SCH (13:00)
--- NOTE | 2024-04-09 13:30 | Pharmacy Report ---
- Date of Service April 09, 2024 - Pharmacy CVA/TIA Medication Review Medications to Prevent Stroke handout has been added to the patients discharge packet. Antiplatelet(s) * Antiplatelet therapy deferred per neurology recommendation Cholesterol * High intensity statin: rosuvastatin 20 mg daily DVT Prophylaxis * SCD knee Therapeutic Anticoagulation * No history of Afib/Aflutter noted. However, was found that patient had a PFO. Xarelto started by life sciences teacher. Type 2 Diabetes * Patient does not have T2DM
--- NOTE | 2024-04-09 13:35 | Billing Data ---
Date of Service April 09, 2024 Coding Level of Care Code 82246 SUB INP/OBS CARE
[2024-04-09] MEDS ORDERED: hydrALAZINE HCL 20 MG/ML VIAL IV PRN (15:44)
[2024-04-09] MEDS: amLODIPine BESYLATE 5 MG TAB PO ONE (16:43)
[2024-04-09] MEDS: TAMSULOSIN HCL 0.4 MG CAP PO ONE (16:45)
[2024-04-09] MEDS: ACETAMINOPHEN 325 MG TAB PO PRN (16:56)
[2024-04-09] MEDS: LORazepam 1 MG/1 ML SYR ED Inj Use IV STA (18:48)
[2024-04-09] MEDS: APIXABAN 5 MG TABLET PO SCH (20:30)
[2024-04-09] MEDS ORDERED: HEPARIN SOD 5,000 UNIT/0.5 ML VIAL SQ SCH (21:00)
[2024-04-10 06:25] LABS: Basophils # (auto) 0.03 K/uL (0.00-0.20); Basophils % (auto) 0.4 %; Eosinophils # (auto) 0.14 K/uL (0.00-0.50); Eosinophils % (auto) 1.9 %; Hematocrit (blood only) 45.4 % (42.0-52.0); Hemoglobin 16.1 g/dl (14.0-18.0); Immature Granulocytes # (auto) 0.02 K/uL (0.01-0.20); Immature Granulocytes % (auto) 0.3 %; Lymphocytes % (auto) 24.8 %; Mean Corpuscular Hemoglobin 33.9 pg (25.0-34.0); Mean Corpuscular Hgb Conc 35.5 g/dL (32.0-36.0); Mean Corpuscular Volume 95.6 fL (80.0-100.0); Mean Platelet Volume 9.4 fL (9.4-12.4); Monocytes # (auto) 0.77 K/uL (0.11-0.59); Monocytes % (auto) 10.6 %; Platelet Count 143 K/uL (130-400); RDW Coefficient of Variation 12.9 % (11.5-14.5); RDW Standard Deviation 45.6 fL (36.4-46.3); Red Blood Count 4.75 M/uL (4.70-6.10); White Blood Count 7.26 K/ul (4.8-10.8)
--- NOTE | 2024-04-10 08:41 | Neurology Progress Note ---
Date of Service April 10, 2024 Assessment & Plan (1) CVA (cerebral vascular accident): (2) Patent foramen ovale: (3) Sensory polyneuropathy: Plan Patient presented April 08 with a several hour history of left facial droop, left arm weakness and possible left leg weakness. He received TNKase and on the morning of April 09, he was essentially back to baseline with no weakness in the arms or legs and a markedly improved facial droop (slight asymmetry now only). Today, he has no asymmetry of the face and no weakness. He therefore is back to baseline. MRI showed 5 or 6 small new strokes some of which appeared subacute and some of which appeared more acute. There were scattered in the right middle cerebral artery territory. After discussion with radiology and considering his history, I suspect these are embolic in nature. In addition, he has some dilated atria and a PFO (even though the echo did not show any actual clot formation). Patient has other risk factors for stroke including hypertension and dyslipidemia. These parameters, however, are fairly well-controlled. Recommendations: 1. Since the patient's total cholesterol was 128 and triglycerides 67 on a dose of rosuvastatin 10 mg daily, this is the proper dose for this patient and he would not be a high-dose statin candidate. There is an increased risk of [employer] hemorrhage in patients over 80 years old particularly if their cholesterol gets driven too low (towards 100 or less). Therefore remain on 10 mg rosuvastatin daily. 2. Physical, occupational, and speech therapy consults to start increasing activity 3. Continue apixaban 5 mg twice daily. 4. I see no indication for antiplatelet medication at this time 5. The patient should curtail his activities over the next week or 2 including no going to the football game or hunting. He should not be out golfing or exercising in the gym. Stick to "puttering" and stretching. 6. Could follow-up with neurology in 3 to 4 weeks after discharge with PA. Otherwise, I have no further neurologic testing or treatment recommendations. Please contact me if I can be of further assistance Overall, I spent a total of 50 minutes with this case including review of records, review of CT, direct evaluation the patient at bedside, report g eneration, and discussion of the case with the patient at bedside and Dr. Rahman, including differential diagnosis and treatment options. Admission and Anticipated Discharge Date Admission Date: April 08, 2024 Subjective Patient is doing well and has no complaints of pain, weakness, or numbness. This morning, he has no headache. He did have a headache yesterday helped with Tylenol CT scan of the head which was obtained 24 hours after thrombolytic was unremarka ble for bleeding. It showed some of the small strokes around the basal ganglia Patient has been in normal sinus rhythm with some PACs and PVCs. Rate was in the 60s. He had a few beats of atrial runs this morning. CBC was unremarkable and blood pressure was 139/85. Results & Data Vital Signs (Past 12 Hours) Vital Signs Temp Pulse Pulse Resp BP Pulse Ox O2 Del Method 04/10/24 08:10 36.7 C 62 18 139/85 92 Room Air 04/10/24 07:35 64 04/10/24 05:06 36.3 C L 65 18 126/84 91 Room Air 04/09/24 23:13 37.0 C 65 18 153/92 H 92 Room Air 04/09/24 23:04 73 Exam (Neuro) Physical Exam: He is awake and alert. Speech is without aphasia or dysarthria. Mood and affect are normal appropriate and thought processes are intact to conversation Extraocular eye muscles are intact without nystagmus. Today, I do not note any asymmetry or facial droop. There was good facial nerve strength and tongue was midline Coordination is normal in the arms without tremor or ataxia. Strength is 5/5 diffusely in all major muscle groups in the arms both proximally and distally. PG Care Time/CCT Total # of Minutes Spent Total Time Spent with Patient: Total time spent is greater than 50% in coordination of care (as documented) at patient's floor/unit and/or counseling patient: Coding Level of Care Code 14872 SUB INP/OBS CARE 3/50MIN Diagnoses CVA (cerebral vascular accident) I63.9 Patent foramen ovale Q21.12 Sensory polyneuropathy G60.8 Time Spent (min) 50
[2024-04-10] MEDS: amLODIPine BESYLATE 5 MG TAB PO SCH (09:18)
[2024-04-10] MEDS: lisinopril 10 MG TAB PO SCH (09:18)
[2024-04-10 11:54] VITALS: BP 149/83; PULSE 67; RESP 19; TEMP 97.3; O2SAT 93
--- NOTE | 2024-04-10 13:34 | Discharge Summary ---
Discharge Summary Date of Service April 10, 2024 Principal Dx & Hospital Course #1 = Principal Diagnosis (1) CVA (cerebral vascular accident): (2) Patent foramen ovale: (3) BPH loc w urin obs/LUTS: (4) HTN (hypertension): (5) Hyperlipidemia: (6) Prediabetes: Plan 83-year-old male with past medical history of hypertension, BPH who presented to the ED on 04/08/2024 with left-sided facial droop and left arm weakness status po st TNK with full resolution of symptoms He was initially monitored in ICU post TNK and then transferred to PCU #Acute CVA #Patent foramen ovale #Essential hypertension #Hyperlipidemia Neurologist Dr. Bullard saw the patient CTA of the head did not show any LVO and was unremarkable, CTA of the neck was unremarkable Total cholesterol is 128 LDL is 55 Triglycerides are 67 A1c is 5.7 Echocardiogram from 04/08/2024 showed left ventricular systolic function is normal, there is mild concentric left ventricular hypertrophy Low right ventricle is mildly dilated Left atrium is mildly dilated Patent foramen ovale is present Borderline aortic root dilatation EF is 55 to 60% MRI showed 5 or 6 small new strokes some of which appeared subacute and some of which appeared more acute. There were scattered in the right middle cerebral artery territory. Neurologist discussed these findings with the radiologist and suspects that these are embolic in nature. In addition patient has a dilated atrium with PFO: Echo did not show any actual clot formation) Neurologist recommended anticoagulation with apixaban 5 mg twice daily As per neurology: Since the patient's total cholesterol was 128 and triglycerides 67 on a dose of rosuvastatin 10 mg daily, this is the proper dose for this patient and he would not be a high-dose statin candidate. There is an increased risk of [employer] hemorrhage in patients over 80 years old particularly if their cholesterol gets driven too low (towards 100 or less). Therefore remain on 10 mg rosuvastatin daily. As per neurology, no indication for antiplatelet therapy at this point As per neurology: The patient should curtail his activities over the next week or 2 including no going to the football game or hunting. He should not be out golfing or exercising in the gym. Stick to "puttering" and stretching. Patient to resume his home antihypertensives of lisinopril 40 mg daily and amlodipine 10 mg daily Patient will follow-up with his PCP and neurology as outpatient. Patient advised to stop Celebrex at this point in light of CVA I have gone over the neurology recommendations regarding activity and follow-up with the patient and his was at the bedside in great detail and answered all their questions. Patient and verbalized understanding my instructions Patient was seen by PT and OT and cleared for discharge home He is ambulating without any deficits #BPH Continue Flomax and mirabegron Outpatient follow-up with PCP #Prediabetes A1c is 5.7 Outpatient follow-up with PCP Patient seen and examined today. I have gone over the discharge care plan, medications, follow-up with the patient and his in great detail and answered all their questions. This discharge took greater than 30 minutes to coordinate Admission HPI Per Admitting Provider Abdullahi Zhu is an 83 year old male who presents to the ER with left sided facial droop, slurred speech. Symptoms started at approximately 9am this morning when he first noticed some drooling in the mouth and had to spit. His noticed some facial droop and left arm weakness as he struggled to put on his belt and shoes. Reportedly he has some left sided gaze weakness when he first came to the ER although the patient did not notice any vision changes. He reports taking all his morning medications. Discharge Exam General: No acute distress Psych: Awake and alert HEENT: Anicteric sclera, moist oral mucosa CVS: Regular rate and rhythm Lungs: Bilateral air entry, no wheezing noted Abdomen: Soft, nontender, no rebound, no guarding Ext: No lower extremity edema, no calf tenderness Neuro: No focal motor deficits noted, no facial droop noted. Strength is 5 out of 5 in all 4 extremities Discharge Plan Discharge Items Patient Disposition: Home - Self-Care Reason For Visit: STROKE ALERT Discharge Diagnosis: CVA Patent foramen ovale Essential hypertension Hyperlipidemia BPH Prediabetes, A1c is 5.7 Condition on Discharge: Good Activity: As commented below Activity Comment: SEE DISCHARGE INSTRUCTIONS Lifting: Wait until after follow-up appointment Exercise/Sports: Wait until after follow-up appointment Non-emergency contact: Primary Care Provider Call non-emergency contact if: you have any medication questions, your symptoms worsen and you have a fever Follow-up/Referrals: James Bullard MD [Physician] - (Please call neurologist within 2-3 week for a hospital follow up visit.) Olga Edwards MD [Primary Care Provider] - 04/16/24 10:25 am (Hospital follow up scheduled for April 16, 2024 at 10:25am) Diet: Heart Healthy Addtl Attending Provider Instructions: DISCHARGE INSTRUCTION TO PATIENT/FAMILY: Follow-up with your primary care provider within 1 week regarding: Posthospital discharge, medication review, medication refills and follow-up on all your medical problems, prediabetes and blood pressure monitoring Please take all your discharge medications, discharge information and discharge instructions to all your doctors appointments. Avoid all NSAIDs including ibuprofen, Motrin, Advil, Aleve, naproxen, meloxicam, Toradol, diclofenac You were admitted for a stroke. You were seen by the neurologist who has started you on the new blood thinner called apixaban/Eliquis. Please follow-up with neurology as outpatient in 2 to 3 weeks time You had an echo done which showed a patent dougherty ovale. Please see your PCP for referral to cardiology as outpatient As part of the stroke workup, you were tested for diabetes. Your A1c is 5.7 which means you have prediabetes. Please avoid sodas, sugary drinks and high sugar content food. Follow-up with your PCP regarding prediabetes Labs through PCP in 1 to 2 weeks week: CBC, CMP, MG, VITAMIN D, B12 Instructions from neurologist are as follows: The patient should curtail his activities over the next week or 2 including no going to the football game or hunting. He should not be out golfing or exercising in the gym. Stick to "puttering" and stretching. Pending Studies at Discharge: No Stand-Alone Forms: My [facility], Smoking Cessation, Medications to Prevent Stroke Medications and DC Order Prescriptions: New Eliquis 5 mg tablet 5 mg PO BID Qty: 60 5RF Continued tamsulosin 0.4 mg capsule See Rx Instructions .ROUTE .COMPLEX Qty: 90 3RF Dose Instruction: TAKE 0.4 MG BY MOUTH DAILY Rx Instructions: TAKE 0.4 MG BY MOUTH DAILY Myrbetriq 50 mg tablet extended release 24 hr 50 mg PO DAILY Qty: 90 3RF lisinopril 40 mg Tablet 40 mg PO QAM rosuvastatin 10 mg Tablet 10 mg PO QAM multivitamin [Multiple Vitamins] Tablet 1 tab PO QAM amlodipine 10 mg tablet 10 mg PO DAILY timolol maleate 0.5 % drops 1 p OPL QAM Held sildenafil 100 mg tablet 0 mg PO DAILY PRN (Reason: sexual activity) Hold Instructions: Resume on 04/20/24. Resume after follow-up with PCP Rx Instructions: administer 30 minutes to 4 hours before activity. Not on file w/ pharmacy. Original Directions: 100mg by mouth daily as needed for sexual activity Discontinued celecoxib [Celebrex] 200 mg capsule 200 mg PO QAM PRN (Reason: Pain) Discharge Orders: Discharge Order (Routine); Ordered 04/10/24 Ordered By: Jak Faith/Other Patient Handouts: Stroke Self Care After Admission Data Admit Date/Time: 04/08/24 11:37 Attending Provider: Jak Luke Admit Provider: Narciso Vallejo Primary Care Provider: Olga Edwards Other Providers: Narciso Vallejo; Jorge L Amezquita; James Bullard Other Interventions: Discharge Summary Assessment (RN) Last Done: 04/10/24 13:35 Hospital Stay Data Consultations 04/08/24 11:27 ED Decision to Admit Stat 04/08/24 13:16 Consult Correspondence Representative Routine Consult Neurology Routine Diagnostic Imagining Performed 04/08/24 10:10 CT angio head w con Stat CT angio neck with con Stat CT head/brain wo con Stat 04/08/24 11:38 MRI Brain [MR brain wo con] Stat 04/08/24 21:43 US venous doppler LE BI Routine 04/09/24 11:36 CT head/brain wo con Stat Head CT 04/08/24 10:10 CT SCAN OF THE BRAIN WITHOUT IV CONTRAST CLINICAL HISTORY: Neurological deficit. Stroke like symptoms. COMPARISON STUDY: No priors. TECHNIQUE: Unenhanced axial CT scan of the brain is performed from the vertex to the skull base. A dose lowering technique was utilized adhering to the principles of ALARA. FINDINGS: Brain parenchyma: There is age-related involutional change noting mild subcortical and periventricular microangiopathic disease. There is no h emorrhage, mass effect, or evidence of acute territorial ischemia by CT criteria. Collins-white matter differentiation is preserved. No extra-axial fluid collection is seen. Ventricles, sulci, cisterns: Prominent secondary to involutional change. Intracranial vasculature: There is atherosclerotic calcification of the cavernous carotid and vertebral arteries. Calvarium: Unremarkable. Sinuses and mastoids: The visualized paranasal sinuses are clear. The mastoid air cells are well pneumatized. Orbits: The bony orbits are grossly intact. There are bilateral ocular lens implants. IMPRESSION: There is no hemorrhage, mass effect, or evidence of acute territorial ischemia by CT criteria. ACT 112: Negative or not required by law. Electronically signed by: Khurram Hussein M.D. 04/08/2024 10:34 AM Head CTA 04/08/24 10:10 CT angio head w con CLINICAL HISTORY: 83 years-old Male with neuro deficit, acute stroke suspected. Acute stroke like symptoms COMPARISON STUDY: Head CT of same day TECHNIQUE: Following the IV administration of 112 cc of Optiray, CT angiogram of the brain was performed from the skull base to the vertex. Images are reviewed in the axial, sagittal, and coronal planes. 3-D MIPS images are created and assessed. IV contrast was administered without complication. All measurements were obtained according to NASCET criteria. A dose lowering technique was utilized adhering to the principles of ALARA. FINDINGS: CT ANGIOGRAM OF THE BRAIN: The imaged bilateral internal carotid arteries are patent. The bilateral a nterior and middle cerebral arteries are also patent. The vertebrobasilar system and posterior cerebral arteries are widely patent. There is no aneurysm, high- grade stenosis, or proximal branch occlusion identified. Dural sinuses appear patent. IMPRESSION: Unremarkable CTA of the head. ACT 112: Negative or not required by law. The above report was generated using voice recognition software. It may contain grammatical, syntax or spelling errors. Electronically signed by: Mauro Brandon M.D. 04/08/2024 10:56 AM Neck CTA 04/08/24 10:10 CT ANGIOGRAM OF THE NECK CLINICAL HISTORY: Neurological deficit. Stroke like symptoms. COMPARISON STUDY: No priors. TECHNIQUE: Following the IV administration of 112 of Optiray 320, CT angiogram of the neck was performed from the aortic arch to the skull base. Images are reviewed in the axial, sagittal, and coronal planes. 3-D MIPS images are created and assessed. IV contrast was administered without complication. All measurements were calculated based on NASCET criteria. A dose lowering technique was utilized adhering to the principles of ALARA. CT DOSE: 1317.28 mGy.cm FINDINGS: Thoracic aorta: There is atherosclerotic calcification of the thoracic aorta. Visualized portions of the thoracic aorta are normal in caliber. The aortic arch demonstrates standard 3-vessel anatomy. Right carotid arterial system: The right common carotid artery is widely patent, as are the right internal and external carotid arteries. Calcified plaque is seen in the carotid bulb. Left carotid arterial system: The left common carotid artery is widely patent, as are the left internal and external carotid arteries. Mild calcified plaque is noted in the carotid bulb. Vertebral arteries: The vertebral arteries are widely patent bilaterally and codominant. Subclavian arteries: Widely patent bilaterally. Intracranial vasculature: The visualized intracranial vessels at the skull base are patent. Jugular veins: Widely patent bilaterally. Brain parenchyma: The visualized brain parenchyma the skull base is within normal limits. Lung apices: Partially visualized upper lobe lung parenchyma appears clear. Soft tissues: The visualized pharyngeal soft tissues are normal in appearance noting angiographic phase technique. The oropharyngeal airway appears widely patent. The salivary and thyroid glands are normal in appearance. No cervical lymphadenopathy is seen. Skeletal structures: The skeletal structures are osteopenic. The visualized calvarium at the skull base appears intact. The imaged cervical spine is maintained noting multilevel spondylosis. Sinuses and mastoids: The visualized paranasal sinuses are clear. The mastoid air cells are well pneumatized. Cerumen is noted in the left external auditory canal. IMPRESSION: Unremarkable CT angiogram of the neck. ACT 112: Negative or not required by law. Electronically signed by: Khurram Hussein M.D. 04/08/2024 10:37 AM Brain MRI 04/08/24 11:38 MRI OF THE BRAIN WITHOUT CONTRAST CLINICAL HISTORY: Left facial droop extremity weak + garbled speech COMPARISON STUDY: Head CT and CT of the head April 08, 2024. TECHNIQUE: Utilizing a 1.5 Greer magnet and dedicated coil, multiplanar, multiecho imaging of the brain was performed without IV contrast. FINDINGS: There are several foci of restricted diffusion within the right basal ganglia which measure up to 1.5 cm. These are hypointense on the ADC map. There may be minimal associated FLAIR signal abnormality. There is no corresponding T2 hyperintensity on the T2-weighted sequences. A few additional small foci of restricted diffusion within the right cerebral hemisphere also favor small acute infarct. There is no evidence for hemorrhagic conversion. There is no mass effect. Ventricular system is unremarkable. Basal cisterns are patent. There are no extra-axial collections. White matter T2 hyperintense foci suggest small vessel disease. IMPRESSION: 1. Several acute infarcts within the right basal ganglia which measure up to 1.5 cm. A few additional punctate foci of restricted diffusion within the right cerebral hemisphere suggestive of an additional acute infarcts. The findings raise the possibility of an embolic etiology. 2. No intracranial hemorrhage. No mass effect. ACT 112: Negative or not required by law. Electronically signed by: Nestor Medrano M.D. 04/08/2024 2:43 PM Venous Doppler Study 04/08/24 21:43 ULTRASOUND BILATERAL LOWER EXTREMITY VENOUS CLINICAL HISTORY: Stroke. Patent foramen ovale.. COMPARISON STUDY: No priors. TECHNIQUE: Real-time, grayscale, and color Doppler sonography of the deep veins of the right and left lower extremity was performed from the inguinal crease to the calf. Compression and augmentation were utilized. The groin vessels could not be compressed. FINDINGS: There is no sonographic evidence of deep venous thrombosis identified in the right or left lower extremity. The common femoral, superficial femoral, and popliteal veins are patent and normally compressible bilaterally. The greater saphenous vein and the profunda femoris vein at the junction with the common femoral vein are clear in both legs. The visualized calf veins are patent bilaterally. IMPRESSION: There is no sonographic evidence of deep venous thrombosis identified in the right or left lower extremity. ACT 112: Negative or not required by law. Electronically signed by: Khurram Hussein M.D. 04/09/2024 6:[address] 04/09/24 11:36 CT head/brain wo con CLINICAL HISTORY: 83 years-old Male with Post TPA/TNK 24 hour- trevon STAT for read please. Acute stroke like symptoms TECHNIQUE: Multiple axial CT images of the head were obtained without contrast. A dose lowering technique was utilized adhering to the principles of ALARA. CT DOSE: 625.8 mGy.cm COMPARISON: Brain MRI April 08, 2024 FINDINGS: No acute intracranial hemorrhage, midline shift, intracranial mass, hydrocephalus, acute territorial infarct or abnormal extra-axial collection. The small acute right cerebral infarcts seen by MRI are better seen on comparison MRI. The calvarium is intact. The paranasal sinuses, mastoid air cells, and middle ear cavities are clear. IMPRESSION: 1. No acute intracranial hemorrhage. 2. Right cerebral and basal ganglia small infarcts redemonstrated, better seen on yesterday's MRI. ACT 112: Negative or not required by law. The above report was generated using voice recognition software. It may contain grammatical, syntax or spelling errors. Electronically signed by: Mauro Brandon M.D. 04/09/2024 11:52 AM Laboratory Results - last 72 hr 04/08/24 04/08/24 04/08/24 10:28 11:24 14:14 WBC 4.70 L RBC 4.46 L Hgb 15.2 Hct 43.1 MCV 96.6 MCH 34.1 H MCHC 35.3 RDW Std Deviation 46.3 RDW Coeff of Andrés 12.8 Plt Count 154 MPV 9.3 L Immature Gran % (Auto) 0.2 Neut % (Auto) 63.4 Lymph % (Auto) 22.8 [place] % (Auto) 11.5 Eos % (Auto) 1.5 Baso % (Auto) 0.6 Neut # (Auto) 2.98 Lymph # (Auto) 1.07 L [place] # (Auto) 0.54 Eos # (Auto) 0.07 Baso # (Auto) 0.03 Immature Gran # (Auto) 0.01 PT 11.4 INR 1.1 APTT 27 PTT Ratio 1.0 Sodium 134 L Potassium 3.8 Chloride 102 Carbon Dioxide 29 Anion Gap 3 BUN 28 H Creatinine 1.10 Est Cr Clr Drug Dosing 58.7 Est GFR ( Amer) 71.6 Est GFR (Non-Af Amer) 61.8 BUN/Creatinine Ratio 25.5 H Glucose 155 H POC Glucose 91 Estimat Average Glucose Hemoglobin A1c Calcium 8.5 L Magnesium 1.9 Total Bilirubin 1.5 H AST 15 ALT 16 Alkaline Phosphatase 50 Troponin I High Sens 4.1 Total Protein 5.9 L Albumin 3.6 Globulin 2.3 L Albumin/Globulin Ratio 1.6 Triglycerides Cholesterol LDL Cholesterol, Calc VLDL Cholesterol, Calc HDL Cholesterol Cholesterol/HDL Ratio Urine Color Yellow Urine Appearance Clear Urine pH 7.5 Ur Specific [place] 1.042 H Urine Protein Negative Urine Glucose (UA) Negative Urine Ketones Negative Urine Blood Negative Urine Nitrite Negative Urine Bilirubin Negative Urine Urobilinogen Negative Ur Leukocyte Esterase Trace H Urine WBC (Auto) 0-5 Urine RBC (Auto) 0-2 U Hyaline Cast (Auto) 0-2 U Epithel Cells (Auto) 0-2 Urine Bacteria (Auto) None Seen Nasal Screen MRSA (PCR) Blood Type B Positive Antibody Screen NEGATIVE 04/08/24 04/09/24 04/09/24 Unknown 04:02 06:10 WBC 7.01 RBC 4.80 Hgb 16.1 Hct 46.1 MCV 96.0 MCH 33.5 MCHC 34.9 RDW Std Deviation 46.4 H RDW Coeff of Andrés 12.9 Plt Count 147 MPV 9.5 Immature Gran % (Auto) 0.3 Neut % (Auto) 61.4 Lymph % (Auto) 26.1 [place] % (Auto) 10.1 Eos % (Auto) 1.7 Baso % (Auto) 0.4 Neut # (Auto) 4.30 Lymph # (Auto) 1.83 [place] # (Auto) 0.71 H Eos # (Auto) 0.12 Baso # (Auto) 0.03 Immature Gran # (Auto) 0.02 PT INR APTT PTT Ratio Sodium Potassium Chloride Carbon Dioxide Anion Gap BUN Creatinine Est Cr Clr Drug Dosing Est GFR ( Amer) Est GFR (Non-Af Amer) BUN/Creatinine Ratio Glucose POC Glucose 87 Estimat Average Glucose 117 Hemoglobin A1c 5.7 H Calcium Magnesium Total Bilirubin AST ALT Alkaline Phosphatase Troponin I High Sens Total Protein Albumin Globulin Albumin/Globulin Ratio Triglycerides 67 Cholesterol 128 LDL Cholesterol, Calc 55 VLDL Cholesterol, Calc 13 HDL Cholesterol 60 Cholesterol/HDL Ratio 2.1 Urine Color Urine Appearance Urine pH Ur Specific [place] Urine Protein Urine Glucose (UA) Urine Ketones Urine Blood Urine Nitrite Urine Bilirubin Urine Urobilinogen Ur Leukocyte Esterase Urine WBC (Auto) Urine RBC (Auto) U Hyaline Cast (Auto) U Epithel Cells (Auto) Urine Bacteria (Auto) Nasal Screen MRSA (PCR) Negative Blood Type Antibody Screen 04/10/24 05:50 WBC 7.26 RBC 4.75 Hgb 16.1 Hct 45.4 MCV 95.6 MCH 33.9 MCHC 35.5 RDW Std Deviation 45.6 RDW Coeff of Andrés 12.9 Plt Count 143 MPV 9.4 Immature Gran % (Auto) 0.3 Neut % (Auto) 62.0 Lymph % (Auto) 24.8 [place] % (Auto) 10.6 Eos % (Auto) 1.9 Baso % (Auto) 0.4 Neut # (Auto) 4.50 Lymph # (Auto) 1.80 [place] # (Auto) 0.77 H Eos # (Auto) 0.14 Baso # (Auto) 0.03 Immature Gran # (Auto) 0.02 PT INR APTT PTT Ratio Sodium Potassium Chloride Carbon Dioxide Anion Gap BUN Creatinine Est Cr Clr Drug Dosing Est GFR ( Amer) Est GFR (Non-Af Amer) BUN/Creatinine Ratio Glucose POC Glucose Estimat Average Glucose Hemoglobin A1c Calcium Magnesium Total Bilirubin AST ALT Alkaline Phosphatase Troponin I High Sens Total Protein Albumin Globulin Albumin/Globulin Ratio Triglycerides Cholesterol LDL Cholesterol, Calc VLDL Cholesterol, Calc HDL Cholesterol Cholesterol/HDL Ratio Urine Color Urine Appearance Urine pH Ur Specific [place] Urine Protein Urine Glucose (UA) Urine Ketones Urine Blood Urine Nitrite Urine Bilirubin Urine Urobilinogen Ur Leukocyte Esterase Urine WBC (Auto) Urine RBC (Auto) U Hyaline Cast (Auto) U Epithel Cells (Auto) Urine Bacteria (Auto) Nasal Screen MRSA (PCR) Blood Type Antibody Screen Pending Results Patient Have Any Pending Studies at Discharge: No Discharge Instructions Given to Patient (Per Discharging Provider) DISCHARGE INSTRUCTION TO PATIENT/FAMILY: Follow-up with your primary care provider within 1 week regarding: Posthospital discharge, medication review, medication refills and follow-up on all your medical problems, prediabetes and blood pressure monitoring Please take all your discharge medications, discharge information and discharge instructions to all your doctors appointments. Avoid all NSAIDs including ibuprofen, Motrin, Advil, Aleve, naproxen, meloxicam, Toradol, diclofenac You were admitted for a stroke. You were seen by the neurologist who has started you on the new blood thinner called apixaban/Eliquis. Please follow-up with neurology as outpatient in 2 to 3 weeks time You had an echo done which showed a patent dougherty ovale. Please see your PCP for referral to cardiology as outpatient As part of the stroke workup, you were tested for diabetes. Your A1c is 5.7 which means you have prediabetes. Please avoid sodas, sugary drinks and high sugar content food. Follow-up with your PCP regarding prediabetes Labs through PCP in 1 to 2 weeks week: CBC, CMP, MG, VITAMIN D, B12 Instructions from neurologist are as follows: The patient should curtail his activities over the next week or 2 including no going to the football game or hunting. He should not be out golfing or exercising in the gym. Stick to "puttering" and stretching. Total Time Total Time Spent Total Time Spent (In Minutes): 40 minutes Total Time Includes: Examination of the Patient, Discharge Planning, Medication Reconciliation and Communication With Other Providers Coding Level of Care Code 74131 INP/OBS DISCH >30 MIN Diagnoses CVA (cerebral vascular accident) I63.9 Patent foramen ovale Q21.12 BPH loc w urin obs/LUTS N40.1 HTN (hypertension) I10 Hyperlipidemia E78.5 Prediabetes R73.03
== END 2024-04-10 14:29 | disposition home or self-care (01) | DRG 62 ==
LOC: ED 10:14 → SUATTDRO 11:37 → 1E 11:37 → 2S 04-09 18:37